=== PATIENT | female | born 1990 | race African-American/Black ===

== ENCOUNTER 2020-08-12 13:55 | Emergency (ER) | payer OTHER, SELFPAY ==
--- NOTE | ~2020-08-12 | US_ITS ---
EXAMINATION:US venous doppler LE BI INDICATION:Leg swelling TECHNIQUE: Multiple grayscale, color flow and Doppler images of the right and left lower extremity de ep venous systems were obtained and reviewed. COMPARISON:No prior studies for comparison. FINDINGS: The common femoral, superficial femoral and popliteal veins demonstrate normal respiratory variation, augmentation and compressibility. Color flow is also seen within the posterior tibial, pe roneal, greater saphenous and profunda veins. IMPRESSION: 1: No lower extremity deep venous thrombosis. Reviewed, dictated and finalized at location A.
--- NOTE | ~2020-08-12 | XR_ITS ---
EXAMINATION: XR chest 2V DATE: 08/12/2020 14:39 INDICATION: Fluid retention. TECHNIQUE: Frontal and lateral views of the chest were obtained. COMPARISON: Chest 2 views 04/30/2015 FINDINGS: The chest demonstrates clear lungs without pneumonia, pleural effusion, or pneumothorax. Th e heart size is normal. IMPRESSION: 1. No acute cardiopulmonary disease. Reviewed, dictated and finalized at location B.
[2020-08-12 14:11] VITALS: BP 139/92; PULSE 69; RESP 16; TEMP 36.2; O2SAT 99
[2020-08-12 14:27] LABS: Basophils Percent Auto 0.4 % (0.2-1.2); Eosinophils Absolute Auto 0.2 K/mm3 (0-0.3); Eosinophils Percent Auto 1.5 % (0-4.4); Hematocrit 27.6 % (37.0-47.0); Hemoglobin 8.5 g/dL (12.0-15.0); Immature Granulocyte Absolute 0.16 K/mm3 (0.00-0.031); Immature Granulocyte Percent A 1.5 % (0-0.5); Lymphocytes Absolute Auto 2.25 K/mm3 (0.9-3.2); Lymphocytes Percent Auto 20.5 % (18.3-44.2); Mean Corpuscular HGB Conc 30.8 g/dl (32-36); Mean Corpuscular Hemoglobin 25.2 pg (26-34); Mean Corpuscular Volume 81.9 fl (80-100); Monocytes Absolute Auto 1.2 K/mm3 (0.1-0.6); Monocytes Percent Auto 10.7 % (2.6-8.5); Neutrophils Absolute Auto 7.2 K/mm3 (1.3-6.7); Neutrophils Percent Auto 65.4 % (45.5-73.1); Nucleated Red Blood Cells Perc 0.2 % (0.0-0.2); Platelet Count Result 269 k/mm3 (150-375); Red Blood Count 3.37 M/mm3 (4.2-5.4); Red Cell Distribution Width 17.7 % (11.5-14.5)
[2020-08-12 14:36] LABS: Anion Gap 1 mmol/L (8-16); Blood Urea Nitrogen 9 mg/dL (7-17); Calcium 7.9 mg/dL (8.4-10.2); Carbon Dioxide 27 mmol/L (22-30); Chloride 109 mmol/L (98-107); Estimated CRCL calculation 139 ml/min; Estimated Glomerular Filt Rate > 60; Glucose 83 mg/dL (65-105); Potassium 3.9 mmol/L (3.4-5.0); Sodium 137 mmol/L (137-145)
[2020-08-12 14:38] LABS: INR 0.9; Prothrombin Time 13.2 Seconds (11.1-14.7)
[2020-08-12 14:39] LABS: Partial Thromboplastin Time 31.1 SECONDS (22.3-36.8)
[2020-08-12 14:48] LABS: NT Pro B Type Natriuretic Pept 283 PG/ML (5-100); Troponin I < 0.012 ng/mL (0.000-0.034)
[2020-08-12 15:57] VITALS: BP 134/90; PULSE 80; RESP 20; O2SAT 100
--- NOTE | 2020-08-12 16:07 | ED.GENADULT ---
HPI - General Adult General Chief complaint: Extremity Injury, Lower Stated complaint: leg swelling Time Seen by Provider: 08/12/20 15:36 Source: patient History of Present Illness HPI narrative: Patient is a 30 y/o female complaining of severe bilateral leg swelling for last 3 months. She states that her swelling is worse since she delivered twins 3 days ago. She has no chest pain or SOB. Related Data Allergies Allergy/AdvReac Type Severity Reaction Status Date / Time amoxicillin Allergy Unknown Hives / Verified 08/12/20 16:01 Red Face Review of Systems Constitutional: Constitutional: Denies chills, Denies fever(s), Denies headache(s) and Denies weakness Eyes: Eyes: Denies blurry vision ENT: Denies headache(s) and Denies neck pain Cardiovascular: Cardiovascular: Denies chest pain and Denies dyspnea Respiratory: Respiratory: Denies cough and Denies dyspnea Gastrointestinal: Gastrointestinal: Denies abdominal pain, Denies diarrhea, Denies nausea and Denies vomiting Genitourinary: Genitourinary: Denies hematuria and Denies dysuria Musculoskeletal: Musculoskeletal: Denies back pain, Denies neck pain and Reports other (leg swelling) Neurologic: Denies headache(s) and Denies weakness [facility] Social History Social History Gender identity (if verbalized by the patient): Female Exam Const: General: no acute distress and well developed Orientation/consciousness: oriented to person, oriented to place, oriented to time and patient oriented x3 HENMT: Head: normocephalic Ears: external ears normal General nose exam: Normal external nose present Eyes: General: appearance normal, both eyes and all related structures Conjunctivae: conjunctivae normal Neck: Neck: normal visual inspection and full ROM Chest: Chest palpation & inspection: normal inspection of the chest and no tenderness Resp: Effort & Inspection: normal respiratory effort Auscultation: clear to auscultation bilaterally Cardio: Rate: regular rate Rhythm: regular rhythm GI: GI Palp: No abdominal tenderness and Yes Soft to palpation Skin: General skin exam: normal color and turgor normal Neuro: General: oriented to person, oriented to place, oriented to time and patient oriented x3 Cognition (Neuro): normal cognition Extrem: General: normal to inspection, full ROM and edema Psych: Appearance: grossly normal Mental Status: mental status grossly normal Affect: normal affect Course Consultations Consultation #1: Discussed with Dr. Sotomayor ([employer]ly [employer] Generalist) at [place] [facility], who states that patient can be discharged and follow up with their clinic. Date: 08/12/20 Time: 19:27 Vital Signs Vital signs: Vital Signs Temperature 36.2 C L 08/12/20 14:11 Pulse Rate 69 08/12/20 14:11 Respiratory Rate 16 08/12/20 14:11 Blood Pressure 139/92 H 08/12/20 14:11 Pulse Oximetry 99 08/12/20 14:11 Temperature 36.2 C L 08/12/20 14:11 Pulse Rate 70 08/12/20 18:17 Respiratory Rate 15 08/12/20 18:17 Blood Pressure 136/89 08/12/20 18:17 Pulse Oximetry 100 08/12/20 18:17 Medical Decision Making Vital Signs Vital Signs: Vital Signs Temperature 36.2 C L 08/12/20 14:11 Pulse Rate 69 08/12/20 14:11 Respiratory Rate 16 08/12/20 14:11 Blood Pressure 139/92 H 08/12/20 14:11 Pulse Oximetry 99 08/12/20 14:11 Temperature 36.2 C L 08/12/20 14:11 Pulse Rate 70 08/12/20 18:17 Respiratory Rate 15 08/12/20 18:17 Blood Pressure 136/89 08/12/20 18:17 Pulse Oximetry 100 08/12/20 18:17 Lab Data Result diagrams: 08/12/20 14:17 08/12/20 14:17 Labs: Lab Results 08/12/20 08/12/20 08/12/20 Range/Units 14:17 14:17 14:17 WBC 11.0 H (4.5-10.0) K/mm3 RBC 3.37 L (4.2-5.4) M/mm3 Hgb 8.5 L (12.0-15.0) g/dL Hct 27.6 L (37.0-47.0) % MCV 81.9 (80-100) fl MCH 25.2 L (26-34) pg MCHC 30.8 L (32-36) g/dl RD
--- NOTE | 2020-08-12 16:10 | PC.NURSE ---
Called lab to add on Uric acid, D-dimer, and Hepatic panel.
[2020-08-12 16:29] LABS: Alanine Aminotransferase 33 U/L (4-35); Alkaline Phosphatase 164 U/L (38-126); Aspartate Amino Transferase 52 U/L (14-36); Bilirubin,Total 0.2 mg/dL (0.2-1.3); Uric Acid 4.8 mg/dL (2.5-7.5)
--- NOTE | 2020-08-12 16:38 | PC.NURSE ---
Cancel EKG, VORBV per Dr. Tripp
[2020-08-12 16:56] VITALS: BP 129/83; PULSE 84; RESP 19; O2SAT 100
[2020-08-12 18:08] LABS: Add Urine Microscopic? YES; Appearance Urine Cloudy (Clear); Bacteria Urine Trace /hpf; Bilirubin Urine Negative (Negative); Blood Urine 3+ (Negative); Color Urine Yellow (Yellow); Glucose Urine UA Negative (Negative); Ketones Urine Negative (Negative); Leukocyte Esterase Ur 3+ LEU/UL (Negative); Mucus Urine Rare /lpf; Nitrate Urine Negative (Negative); Protein Urine 1+ mg/dL (Negative); RBC Urine 0-2 /hpf (0-2); Specific Grav Ur 1.015 (1.001-1.035); Squamous Epithelial Cell Urine Few /hpf (Few); Transitional Epi Cells Urine Rare /hpf (None Seen); WBC Urine 31-50 /hpf
[2020-08-12 18:17] VITALS: BP 136/89; PULSE 70; RESP 15; O2SAT 100
== END 2020-08-12 19:56 | disposition home or self-care (01) ==
PROVIDERS: Emergency Medicine; Emergency Provider Emergency Medicine; PCP Obstetrics & Gynecology
DX: O99.893 Other specified diseases and conditions complicating puerperium (principal); M79.89 Other specified soft tissue disorders
CPT/HCPCS: 36415; 71046; 80048; 80076; 81001; 83880; 84484; 84550; 85025; 85380; 85610; 85730; 87077; 87086; 87088; 87186; 93970; 99284

== ENCOUNTER 2024-07-04 19:06 | Emergency (ER) | payer OTHER, SELFPAY ==
--- NOTE | ~2024-07-04 | XR_ITS ---
EXAMINATION: XR chest 2V Exam Date/Time: 07/04/2024 19:36 CDT HISTORY: palpitations, left sided chest pain Comparison: 08/12/2020. RESULT: Lines, tubes, and devices: None. Lungs and pleura: Clear. Cardiomediastinal silhouette: Stable. Other: No acute osseous or upper abdominal finding. IMPRESSION: No acute cardiopulmonary process. Reviewed, dictated and finalized at location K.
--- OUTSIDE RECORDS SUMMARY | 2024-07-04 19:09 | XMS_ITS | Clinical Summary ---
Author Organization [facility] [employer] Address [address] [place] [address] Care Team Providers Care Drilling Engineering Manager Name Role Phone El Daugherty MD Primary Care Provider [phone] Source Comments [facility],non-owned Affiliates and Associated Physician Practices is amultiple site organization consisting of ambulatory clinics and hospital sitesin [place], [place], [place] and [place]. This disclosure is being madepursuant to the Care Everywhere program and may not contain all information available regarding this patient. Last updated 18.[facility] [employer] Allergies Active Allergy Reactions Criticality Noted Date Comments Amoxicillin Rash High 06/30/2018 Omeprazole Other 04/11/2020 Racing pulse 03/2020 Medications * Be aware that medications may not be up to date on this document. Alwaysverify current medications with the patient. Medication Sig Dispensed Refills Start Date End Date Status pantoprazole EC (PROTONIX) 40 MG tabletIndications:Pe ptic ulcer disease Take 1 tablet by mouth 2 times daily 180 tablet 3 0 Active Acetaminophen (TYLENOL) 325 MG CAPS Take 1 tablet by mouth as needed Active -FE Bis-FA-DHA w/o A (COMPLETE /DHA) 30-0.975 & 300 MG MISC Take 1 tablet by mouth once daily 30 Each 11 1 Active docusate sodium (COLACE) 100 MG capsule Take 1 (one) capsule by mouth 2 times daily 60 capsule 2 1 Active iron polysaccharides (NIFEREX 150) 150 MG capsule Take 1 (one) capsule by mouth once daily 100 capsule 1 Active NIFEdipine CR osmotic 24hr (ADALAT CC) 30 MG tablet Take 1 (one) tablet by mouth once daily 30 tablet 1 1 Active ketoconazole (NIZORAL) 2 % shampooIndications:O ther psoriasis Work into lather on scalp, leave on 3-5 minutes before rinse. Use qd at first, can lower frequency after improved 120 mL 11 1 Active calcipotriene (DOVONEX) 0.005 % cream Apply to rashes bid. No restrictions on location. 30 DS 120 g 11 1 Active clobetasol (Temovate) 0.05 % ointmentIndications: Rash and other nonspecific skin eruption Apply to affected areas (on trunk, arms, legs) twice daily. 30 days supply. 60 g 5 4 Active clobetasol (Temovate) 0.05 % solutionIndications: Rash and other nonspecific skin eruption Apply to affected area on scalp BID. 30 day supply. 50 mL 4 Active hydrOXYzine HCl (Atarax) 25 MG tabletIndications:Ra sh and other nonspecific skin eruption Take 1 (one) tablet by mouth 2 times daily as needed for Itching 90 tablet 3 4 Active risankizumab-rzaa (Skyrizi Pen) 150 MG/ML injectionIndications :Other psoriasis Inject 1 mL subcutaneously on day 0. Inject 1 mL subcutaneously on day 28. 2 mL 5 Active risankizumab-rzaa (Skyrizi Pen) 150 MG/ML injectionIndications :Other psoriasis Inject 1mL subcutaneously every 12 weeks. 12 week supply. 1 mL 2 5 Active Active Problems Problem Noted Date Diagnosed Date Elevated blood pressure read ing without diagnosis of hypertension 08/16/2020 Gestational diabetes mellitus (GDM) in third tri mester 07/01/2020 Overview (07/22/2020): GCT 174, 2/4 abnormal on GTT at 32 weeks Assessment & Plan (08/01/2020 1:34 PM CDT): Did not bring logs P 1. Send logs weekly for review 2. NST 2x weekly 3. IOL date set , supervision, high-risk 05/11/2020 Overview (08/01/2020): Dated by 11w US - transfer of care to [facility] @25 week preg 27 pages scanned records in media labs Jan 2020:O+/I/-/-, HIV neg, antibody neg, varicella immune, urine culture neg, drug screen neg, hgb solubility screen neg, hgb 11.7/platelets 340, GC/Ct neg HSV 1/2 swab neg, HSV-2 serology neg, TSH low, A1c 5.2, Hep panel neg No pap on file Plan pap/hpv testing flu vaccine: yes, Per pt GBS neg Twin , twins dichorionic and diamniotic 02/20/2020 Overview (08/01/2020): QUAD Screen negative for open NTD and Down syndrome Assessment & Plan (08/01/2020 1:38 PM CDT): Labor precautions Low thyroid stimulating hormone (TSH) level 01/25 Overview (07/22/2020): Resolved as progressed Other psoriasis 09/02/2018 Other seborrheic dermatitis 09/02/2018 Peptic ulcer disease 06/30/2018 Overview (07/22/2020): Has been followed by GI for peptic ulcer disease - persistent despite high doses pantoprazole, H pylori, treated; was having endoscopies every 3 months (last 03/2019) until - to follow up . Last seen 01/25/2020. Hx both gastric and duodenal ulcers. Pantoprazole 40 mg BID. Adult hypertrophic pyloric stenosis 05/26/2018 Duodenal ulcer disease 05/26/2018 Gastric ulcer without hemorrhage or perforation 05/26/2018 Resolved Problems Problem Noted Date Diagnosed Date Resolved Date BMI 30.0-30.9,adult 02/20/2020 05/11/19 21 High risk medications (not a nticoagulants) long-term use 06/04/2019 05/11/2020 Helicobacter pylori infection 06/30/2018 05/11/2020 Trichomoniasis 06/30/2018 07/22/2020 Left upper quadrant pain 02/24/2018 Acute dermatitis 02/24/2018 05/11/2020 Anemia 02/24/2018 07/22/2020 Bacterial vaginosis 02/24/2018 05/11/19 21 Candidiasis 02/24/2018 05/11/2020 Chronic cervicitis 02/24/2018 Epigastric pain 02/24/2018 05/11/2020 Intestinal infection by trichomonas vaginalis 02/25/20 18 05/11/2020 Irritable bowel syndrome 02/24/201810/2018 Nausea and vomiting 02/24/2018 07/01/19 19 Encounters Date Type Department Care Team Description 06/09/2024 Orders Only [facility] - Dermatology [address] [place] [phone] Anna Adrian MD Other psoriasis 06/05/2024 4:10 PM IRON PILER - 06/05/2024 11:59 PM IRON PILER Hospital Encounter [facility] [address] [place] [phone] Discharge Disposition: Home or Self Care 06/05/2024 3:40 PM IRON PILER Office Visit [facility] - Dermatology [address] [place] [phone] Anna Adrian MD Psoriasis (Primary Dx); Encounter for long-term (current) use of high-risk medication 06/05/2024 Travel 04/13/2024 Telephone [facility] - Dermatology [address] [place] [phone] Monty Bustillos MD Follow-up 04/10/2024 3:00 PM IRON PILER Office Visit [facility] - Dermatology [address] [place] [phone] Anna Adrian MD Rash and other nonspecific skin eruption (Primary Dx) 04/10/2024 Travel from Last 3 Months Immunizations Name Administration Dates Next Due Covid Pfizer primary monoval ent 12+ yr 0.3mL Purple cap 10/22/2020 HEP A/HEP B 02/26/2015,10/24/2014,09/04/2014 Human Papilloma Virus Nineva lent Vaccine 05/29/2015 Human Papilloma Virus Sari valent Vaccine 10/24/2014,09/04/2014 INFLUENZA VACCINE 02/24/2018 INFLUENZA VACCINE, QUADR. (F LUZONE; FLULAVAL; FLUARIX; AFLURIA QUADRIVALENT; 6MO+), 0.5 ML (IIV4) 01/25/2020 MMR 08/17/2020(Deferred: See Comments - patient is rubella immune),08/10/2020(Deferred: See Comments - pt is rubella immune) TDAP (7yrs+) 08/17/2020(Deferred: See Comments - pt received in OB office while ),08/10/2020(Deferred: See Comments - pt already had tdap this ) Family History Medical History Relation Name Comments Psoriasis Brother Cancer Maternal Grandmother CAD (Coronary Artery Disease) Mother open heart surgery Asthma Neg Hx CVA Neg Hx Cancer - Breast Neg Hx Cancer - Other Neg Hx Cancer - Skin, Melanoma Neg Hx Cancer - Skin, Non Melanoma Neg Hx Eczema Neg Hx Hemophilia Neg Hx Relation Name Status Comments Brother Maternal Grandmother Mother Social History Tobacco Use Types Packs/Day Years Used Date Smoking Tobacco: Never Smokeless Tobacco: Never Alcohol Use Standard Drinks/Week Comments Yes 0 (1 standard drink = 0.6 oz pure alcohol) occasional, not during Sex and Gender Information Value Date Recorded Sex Assigned at Not on file Gender Identity Not on file Sexual Orientation Not on file Last Filed Vital Signs Vital Sign Reading Time Taken Comments Blood Pressure 134/76 08/17/2020 6:53 PM CDT Pulse 82 08/11/2020 12:55 PM CDT Temperature 36.8 C (98.3 F) 08/17/2020 12:47 PM CDT Respiratory Rate 18 08/17/2020 12:47 PM CDT Oxygen Saturation 98% 08/17/2020 12:47 PM CDT Inhaled Oxygen Concentration - - Weight 92.1 kg (203 lb) 08/16/2020 2:58 PM CDT Height 170.2 cm (5' 7 ) 08/16/2020 2:58 PM CDT Body Mass Index 31.79 08/16/2020 2:58 PM CDT Plan of Treatment Upcoming Encounters Date Type Department Care Team (Late st Contact Info) Description 07/24/2024 3:00 PM CDT Office Visit [facility] - Family Medicine [address] [facility], [facility] [address] [place] [phone] Luisa Montero MD [address] [place] [address] 09/04/2024 3:40 PM CDT Office Visit [facility] - Dermatology [facility] [facility] [facility], [place] [phone] Anna Adrian MD [facility] [facility] [facility] [place] [phone] Health Maintenance Due Date Last Done Comments PAP SMEAR 1990 HIV SCREENING 2005 DTAP/TDAP/TD VACCINES (1 - Tdap) 2009 COVID-19 VACCINE (3 2023-2 5 season) 2023 12/25/2020, 10/22/2020 INFLUENZA VACCINE (#1) 2023 , 03/10/2018, 02/24/2018 DEPRESSION SCREENING 04/26/2024 ZOSTER VACCINE (1 of 2) 2040 HEPATITIS B VACCINE Completed 02/26/2015, 10/24/2014, 09/04/2014 HPV VACCINE Completed 05/29/2015, 10/24/2014, 09/04/2014 HEPATITIS C SCREENING Completed 06/05/2024 HIB VACCINE Aged Out No longer eligi ble based on patient's age to complete this topic MENINGOCOCCAL (Group B) VACCINE Aged Out No longer eligible b ased on patient's age to complete this topic MENINGOCOCCAL VACCINE Aged Out No david jon eligible based on patient's age to complete this topic PNEUMOCOCCAL VACCINE Aged Out No long er eligible based on patient's age to complete this topic Goals Goal Patient Goal Type Associated Problems Recent Progress Patient-Stated? Author Medication Management General On track( 020 11:52 AM CDT) No Lis Adrian, RN Note: Expected end date: onoing Interventions: Take all medications as prescribed Let your doctor know right away about any changes in your medications Make sure to request a refill of your medication at least one week prior to your last dose Procedures Procedure Name Priority Date/Time Associated Diagnosis Comments DIFFERENTIAL MANUAL Routine 06/05/2024 4 :57 PM IRON PILER Encounter for long-term (current) use of high-risk medication COMPREHENSIVE METABOLIC PANEL Routine 06/05/2024 4:57 PM IRON PILER Encounter for long-term (current) use of high-risk medication CBC W AUTO DIFFERENTIAL Routine 06/05/19 4:57 PM IRON PILER Encounter for long-term (current) use of high-risk medication HEPATITIS C AB SCREEN RFLX NAAT QUANT Routine 06/05/2024 4:57 PM IRON PILER Encounter for long-term (current) use of high-risk medication QUANTIFERON-TB GOLD PLUS 4-TUBE Routine 06/05/2024 4:57 PM IRON PILER Encounter for long-term (current) use of high-risk medication HEPATITIS B SURFACE ANTIGEN W RFLX CONFIRMATION Routine 06/05/2024 4:57 PM IRON PILER Encounter for long-term (current) use of high-risk medication HEPATITIS B CORE ANTIBODY TOTAL Routine 06/05/2024 4:57 PM IRON PILER Encounter for long-term (current) use of high-risk medication NC PUNCH BX SKIN SINGLE LESION Routine 04/10/2024 4:06 PM IRON PILER Rash and other nonspecific skin eruption DERMATOPATHOLOGY Routine 04/10/2024 12:0 0 AM IRON PILER Rash and other nonspecific skin eruption from Last 3 Months Results * HEPATITIS C AB SCREEN RFLX NAAT QUANT (06/05/2024 4:57 PM IRON PILER) Hepatitis C Antibody Non-react isidoro Non-reac tive 06/05/2024 6:06 PM IRON PILER [facility] Comment:Hepatitis C Antibody screen indicates no serologic evidence of past or current infection with Hepatitis C Virus. Patients with unexplained liver disease who are immunocompromised or suspected of having acute Hepatitis C infection may benefit from Nucleic Acid Test (KRISTA) for Hepatitis C Viral RNA to confirm Hepatitis C status. Blood BLOOD SPECIMEN / Unknown Lab Venipuncture / Unknown 06/05/2024 4:57 PM IRON PILER 06/05/2024 5:04 PM IRON PILER Anna Adrian MD LAB - CHEMISTRY STEPHANIE SHARMA [facility] Organization Address City/State/ZIP Co de Phone Number [address] [phone] [phone] * QUANTIFERON-TB GOLD PLUS 4-TUBE (06/05/2024 4:57 PM IRON PILER) [facility] QuantiFERON Mitogen Minus NIL 9.56 IU/mL 06/08/2024 3:33 AM IRON PILER [facility] ([facility]) QuantiFERON Nil Value 0.45 IU/mL 06/08/2024 3:33 AM IRON PILER [facility] QuantiFERON Plus TB1 Minus NIL 0.00 <=0.34 IU/mL 06/08/2024 3:33 AM IRON PILER [facility] QuantiFERON Plus TB2 Minus NIL 0.00 <=0.34 IU/mL 06/08/2024 3:33 AM IRON PILER [facility]) QuantiFERON-TB Gold Plus Negative Negative 06/08/2024 3:33 AM IRON PILER [facility] [employer] ([facility]) Comment: INTERPRETIVE INFORMATION:Quantiferon TB Gold Plus Interferon gamma release is measured for specimens from each of the four collection tubes. A qualitative result (Negative, Positive, or Indeterminate) is based on interpretation of the four values: NIL, MITOGEN minus NIL (MITOGEN-NIL), TB1 minus NIL (TB1-NIL), and TB2 minus NIL (TB2-NIL). The NIL value represents nonspecific reactivity produced by the patient specimen. The MITOGEN-NIL value serves as the positive control for the patient specimen, demonstrating successful lymphocyte activity. The TB1-NIL tube specifically detects CD4+ lymphocyte reactivity, specifically stimulated by the TB1 antigens. The TB2-NIL tube detects both CD4+ and CD8+ lymphocyte reactivity, stimulated by TB2 antigens. An overall Negative result does not completely rule out TB infection. A false-positive result in the absence of other clinical evidence of TB infection is not uncommon. Refer to: Updated Guidelines for Using Interferon Gamma Release Assays to Detect Mycobacterium tuberculosis Infection -- [place], 2010 (http://www.cdc.gov/mmwr/preview/mmwrhtml/bf5043i8.htm), for more information concerning test performance in low-prevalence populations and use in occupational screening. Performed By: [facility] [address] [place] [address] Procurement Analyst: Milton Iraheta MD, PhD CLIA Number: [id number] Blood BLOOD SPECIMEN / Unknown Lab Venipuncture / Unknown 06/05/2024 4:57 PM IRON PILER 06/05/2024 5:12 PM IRON PILER Anna Adrian MD LAB - CHEMISTRY STEPHANIE SHARMA [facility] Organization Address City/State/ZIP Co de Phone Number [facility] ([facility]) [address] [place] [address], [facility] * (ABNORMAL) DIFFERENTIAL MANUAL (06/05/2024 4:57 PM IRON PILER) Neutrophil % 42 41 - 74 % 06/05/2024 6:03 PM [facility] Lymphocyte % 48(H) 17 - 47 % 06/05/2024 6:03 PM [facility] Monocyte % 8 3 - 11 % 06/05/2024 6:03 PM [facility] Eosinophil % 2 0 - 7 % 06/05/2024 6:03 PM [facility] Neutrophil Absolute 4.28 1.60 - 7.50 x10E9/L 06/05/2024 6:03 PM [facility] Lymphocyte Absolute 4.90(H) 1.00 - 4.40 x10E9/L 06/05/2024 6:03 PM [facility] Monocyte Absolute 0.82 0.15 - 1.00 x10E9/L 06/05/2024 6:03 PM [facility] Eosinophil Absolute 0.20 0.00 - 0.60 x10E9/L 06/05/2024 6:03 PM [facility] RBC Morphology REVIEWED 06/05/2024 6:03 PM [facility] Schistocytes FEW(A) (none) 06/05/2024 6:03 PM [facility] Blood BLOOD SPECIMEN / Unknown Lab Venipuncture / Unknown 06/05/2024 4:57 PM IRON PILER 06/05/2024 5:17 PM IRON PILER Anna Adrian MD LAB - HEMATOLOGY ORD ERABLES [facility] [address] [place] [address], [facility] [phone] * CBC WITH DIFFERENTIAL (06/05/2024 4:57 PM [facility] [email or web address] WBC 10.2 4.0 - 10.7 x10E9/L 06/05/2024 6:03 PM [facility] RBC Count 4.28 3.90 - 5.20 x10E12/L 06/05/2024 6:03 PM [facility] Hemoglobin 11.9 11.9 - 15.8 g/dL 06/05/2024 6:03 PM [facility] Hematocrit 37.2 34.8 - 46.1 % 06/05/2024 6:03 PM [facility] MCV 86.9 80.0 - 98.0 fL 06/05/2024 6:03 PM [facility] MCH 27.8 26.7 - 33.6 pg 06/05/2024 6:03 PM [facility] MCHC 32.0 31.7 - 36.3 g/dL 06/05/2024 6:03 PM [facility] RDW-CV 12.9 11.3 - 14.8 % 06/05/2024 6:03 PM [facility] Platelet Count 348 150 - 420 x10E9/L 06/05/2024 6:03 PM [facility] MPV 10.5 7.8 - 11.4 fL 06/05/2024 6:03 PM [facility] Blood BLOOD SPECIMEN / Unknown Lab Venipuncture / Unknown 06/05/2024 4:57 PM IRON PILER 06/05/2024 5:17 PM IRON PILER Anna Adrian MD LAB - HEMATOLOGY ORD ERABLES [facility] [address] [place] [address], [facility] [phone] * (ABNORMAL) COMPREHENSIVE METABOLIC PANEL (06/05/2024 4:57 PM IRON PILER) BUN 10 7 - 26 mg/dL 06/05/2024 5:51 PM [facility] Creatinine 0.66 0.56 - 0.96 mg/dL 06/05/2024 5:51 PM [facility] Sodium 139 136 - 145 mmol/L 06/05/2024 5:51 PM [facility] Potassium 3.7 3.5 - 4.5 mmol/L 06/05/2024 5:51 PM [facility] Chloride 108(H) 98 - 107 mmol/L 06/05/2024 5:51 PM [facility] CO2 23 22 - 29 mmol/L 06/05/2024 5:51 PM [facility] Glucose 83 70 - 99 mg/dL 06/05/2024 5:51 PM [facility] Calcium 8.9 8.4 - 10.2 mg/dL 06/05/2024 5:51 PM [facility] Protein Total 7.1 6.0 - 8.3 g/dL 06/05/2024 5:51 PM [facility] Albumin 3.8 3.4 - 5.0 g/dL 06/05/2024 5:51 PM [facility] Bilirubin Total 0.3 0.2 - 1.2 mg/dL 06/05/2024 5:51 PM [facility] Alkaline Phosphatase 99 40 - 150 U/L 06/05/2024 5:51 PM [facility] ALT 15 5 - 55 U/L 06/05/2024 5:51 PM [facility] AST 13 5 - 34 U/L 06/05/2024 5:51 PM [facility] Anion Gap 8 6 - 16 06/05/2024 5:51 PM [facility] BUN/Creatinine Ratio 15 7 - 23 06/05/2024 5:51 PM [facility] Osmolality Calculated 286 275 - 295 mOsm/kg 06/05/2024 5:51 PM [facility] Albumin/Globulin Ratio 1.2 1.1 - 2.3 06/05/2024 5:51 PM [facility] eGFR by CKD-EPI >90 >=90 mL/min/1.7 3 m2 06/05/2024 5:51 PM [facility] Blood BLOOD SPECIMEN / Unknown Lab Venipuncture / Unknown 06/05/2024 4:57 PM IRON PILER 06/05/2024 5:17 PM IRON PILER Anna Adrian MD LAB - CHEMISTRY STEPHANIE SHARMA [address] [address], [facility] [phone] * HEPATITIS B CORE ANTIBODY TOTAL (06/05/2024 4:57 PM IRON PILER) HBc Antibody Total Non-reacti ve Non-reacti ve 06/05/2024 6:06 PM IRON PILER [facility] Blood BLOOD SPECIMEN / Unknown Lab Venipuncture / Unknown 06/05/2024 4:57 PM IRON PILER 06/05/2024 5:04 PM IRON PILER Anna Adrian MD LAB - CHEMISTRY STEPHANIE SHARMA [address] [address], [place] [phone] * HEPATITIS B SURFACE ANTIGEN W RFLX CONFIRMATION (06/05/2024 4:57 PM IRON PILER) Hepatitis B Virus Surface Antigen Non-reacti ve Non-reacti ve 06/05/2024 6:06 PM IRON PILER [facility] Blood BLOOD SPECIMEN / Unknown Lab Venipuncture / Unknown 06/05/2024 4:57 PM IRON PILER 06/05/2024 5:04 PM IRON PILER Anna Adrian MD LAB - CHEMISTRY STEPHANIE SHARMA [facility] Organization Address City/State/ZIP Co de Phone Number [facility] [address] [place] [address], [facility] [phone] * NC PUNCH BX SKIN SINGLE LESION (04/10/2024 4:06 PM IRON PILER) Narrative Anna Adrian MD - 04/10/2024 4:06 PM IRON PILER Monty Bustillos MD 04/10/2024 4:06 PM Risks, benefits and alternatives to punch biopsy were discussed with the patient, including risks of infection, scar (100% chance), the possibility of non-diagnostic reading, and the potential need for further testing or treatment, including surgical. Patient expressed understanding and verbal consent was obtained. Location: [facility] flank Punch biopsy: 4mm Skin prep: Alcohol Anesthesia: 1% lidocaine with epinephrine Closure: 4-0 nylon suture Dressing and wound care discussed. Patient agrees to phone call for results and message if not available. Monty Bustillos MD [facility] Dermatology Resident Anna Adrian MD PROCEDURE/MINOR SURG ICAL ORDERABLES * DERMATOPATHOLOGY (04/10/2024 12:00 AM IRON PILER) Case Report Dermatopathology Report Case: [id number] Authorizing Provider: Anna Adrian MD Collected: 04/10/2024 12:00 AM Ordering Location: [facility] - Received: 04/10/2024 05:00 PM Dermatology Pathologist: Catherine Morris MD Specimen: Skin, right flank 4:31 PM [facility] [email or web address]] DERMATOPATHOLOGY LABORATORY Final Diagnosis Specimen A. 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 The specimen consists of a punch biopsy measuring 4x4x6 mm. Jar 0. 4 4:31 PM [facility] [[email or web address]] DERMATOPATHOLOGY LABORATORY Microscopic Description Specimen A. SKIN, right flank: Sections show mounded parakeratosis with neutrophils. There is mild spongiosis of the epidermis. In the dermis there is a mainly superficial perivascular lymphoid infiltrate. Grocott's methenamine silver (GMS) stain fails to highlight fungal elements in the available sections. IL-36 immunohistochemical stain demonstrates strong staining of the upper epidermis. 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 4 4:31 PM [facility] [email or web address]] DERMATOPATHOLOGY LABORATORY Disclaimer An external and internal positive and negative controls are appropriate for the histochemical, immunohistochemical and immunofluorescence stain(s) in this case (if any), except where stated explicitly. The performance characteristics of the stain(s) cited in this report were developed and its performance characteristic determined by the Dermatopathology Laboratory at [facility], directed by Dr. Michoacano Ayala. These tests need not be, and therefore are not, approved by the [place] Food and Drug Administration. The tests are used for clinical purposes. Billing Codes Specimen Charges Stain Charges 06456 1 [id number] 1 1 4 4:31 PM [facility] [[email or web address]] DERMATOPATHOLOGY LABORATORY Embedded Images 4 4:31 PM [facility] [email or web address]] DERMATOPATHOLOGY LABORATORY Pathology/Cytolog y TISSUE SPECIMEN FROM SKIN / Unknown 04/10/2024 04/10/2024 5:00 PM IRON PILER Anna Adrian MD LAB - PATHOLOGY/CYTO LOGY ORDERABLES DERMATOPATHOLOGY LABORATORY [facility] - Department of Dermatology [facility] Medicine [address] [place] [address], [address] [phone] from Last 3 Months Advance Directives * Full Code (Latest Code Status on File) Date Activated Date Inactivated Comments 08/16/2020 3:05 PM 08/17/2020 9:05 PM * Full Code Date Activated Date Inactivated Comments 08/08/2020 9:24 AM 08/11/2020 2:14 PM * Full Code Date Activated Date Inactivated Comments 06/26/2020 6:22 PM 06/27/2020 12:57 AM Care Teams Drilling Engineering Manager Relationship Specialty Start Date End Date El Daugherty MD [address] [place] [address] [phone] PCP - General 02/16/19
--- OUTSIDE RECORDS SUMMARY | 2024-07-04 19:09 | XMS_ITS | Patient Health Summary ---
Author Organization [facility] Address [address] [place] [address] Care Team Providers Care Financial Reporting Analyst Name Role Phone El Daugherty MD Primary Care Provider [phone] Note from [facility],non-owned Affiliates and Associated Physician Practices is amultiple site organization consisting of ambulatory clinics and hospital sitesin [place], [place], [place] and [place]. This disclosure is being madepursuant to the Care Everywhere program and may not contain all information available regarding this patient. Last updated 18.[facility] Allergies * Amoxicillin(Rash) -High Criticality * Omeprazole(Other) Medications * Be aware that medications may not be up to date on this document. Alwaysverify current medications with the patient. * pantoprazole EC (PROTONIX) 40 MG tablet(Started 08/16/2019) Take 1 tablet by mouth 2 times daily 3 refills by 08/15/2020 * Acetaminophen (TYLENOL) 325 MG CAPS Take 1 tablet by mouth as needed * -FE Bis-FA-DHA w/o A (COMPLETE /DHA) 30-0.975 & 300 MG MISC (Started 05/11/2020) Take 1 tablet by mouth once daily 11 refills by 05/11/2021 * docusate sodium (COLACE) 100 MG capsule(Started 06/23/2020) Take 1 (one) capsule by mouth 2 times daily 2 refills by 06/23/2021 * iron polysaccharides (NIFEREX 150) 150 MG capsule(Started 08/11/2020) Take 1 (one) capsule by mouth once daily * NIFEdipine CR osmotic 24hr (ADALAT CC) 30 MG tablet(Started 08/18/2020) Take 1 (one) tablet by mouth once daily 1 refill by 08/17/2021 * ketoconazole (NIZORAL) 2 % shampoo(Started 12/19/2020) Work into lather on scalp, leave on 3-5 minutes before rinse. Use qd at first, can lower frequency after improved 11 refills by 12/19/2021 * calcipotriene (DOVONEX) 0.005 % cream(Started 12/19/2020) Apply to rashes bid. No restrictions on location. 30 DS 11 refills by 12/19/2021 * clobetasol (Temovate) 0.05 % ointment(Started 04/10/2024) Apply to affected areas (on trunk, arms, legs) twice daily. 30 days supply. 5 refills by 04/10/2025 * clobetasol (Temovate) 0.05 % solution(Started 04/10/2024) Apply to affected area on scalp BID. 30 day supply. * hydrOXYzine HCl (Atarax) 25 MG tablet(Started 04/13/2024) Take 1 (one) tablet by mouth 2 times daily as needed for Itching 3 refills by 04/13/2025 * risankizumab-rzaa (Skyrizi Pen) 150 MG/ML injection(Started 06/09/2024) Inject 1 mL subcutaneously on day 0. Inject 1 mL subcutaneously on day 28. * risankizumab-rzaa (Skyrizi Pen) 150 MG/ML injection(Started 06/09/2024) Inject 1mL subcutaneously every 12 weeks. 12 week supply. 2 refills by 06/09/2025 Active Problems Problem Noted Date Diagnosed Date Elevated blood pressure read ing without diagnosis of hypertension 08/16/2020 Gestational diabetes mellitus (GDM) in third tri mester 07/01/2020 , supervision, high-risk 05/11/2020 Twin , twins dichorionic and diamniotic 02/20/2020 Low thyroid stimulating hormone (TSH) level 01/25 Other psoriasis 09/02/2018 Other seborrheic dermatitis 09/02/2018 Peptic ulcer disease 06/30/2018 Adult hypertrophic pyloric stenosis 05/26/2018 Duodenal ulcer [...] 02/24/201810/2018 Nausea and vomiting 02/24/2018 07/01/19 19 Immunizations * Covid Pfizer primary monovalent 12+ yr 0.3mL Purple cap(Given 10/22/2020) * HEP A/HEP B(Given 02/26/2015, 10/24/2014, 09/04/2014) * Human Papilloma Virus Ninevalent Vaccine(Given 05/29/2015) * Human Papilloma Virus Quadrivalent Vaccine(Given 10/24/2014, 09/04/2014) * INFLUENZA VACCINE(Given 02/24/2018) * INFLUENZA VACCINE, QUADR. (FLUZONE; FLULAVAL; FLUARIX; AFLURIA QUADRIVALENT; 6MO+), 0.5 ML (IIV4)(Given 01/25/2020) Social History Tobacco Use Types Packs/Day Years [...] Mass Index 31.79 08/16/2020 2:58 PM CDT Procedures * DIFFERENTIAL MANUAL(Performed 06/05/2024) Performed for Encounter for long-term (current) use of high-risk medication * COMPREHENSIVE METABOLIC PANEL(Performed 06/05/2024) Performed for Encounter for long-term (current) use of high-risk medication * CBC W AUTO DIFFERENTIAL(Performed 06/05/2024) Performed for Encounter for long-term (current) use of high-risk medication * HEPATITIS C AB SCREEN RFLX NAAT QUANT(Performed 06/05/2024) Performed for Encounter for long-term (current) use of high-risk medication * QUANTIFERON-TB GOLD PLUS 4-TUBE(Performed 06/05/2024) Performed for Encounter for long-term (current) use of high-risk medication * HEPATITIS B SURFACE ANTIGEN W RFLX CONFIRMATION(Performed 06/05/2024) Performed for Encounter for long-term (current) use of high-risk medication * HEPATITIS B CORE ANTIBODY TOTAL(Performed 06/05/2024) Performed for Encounter for long-term (current) use of high-risk medication * NE PUNCH BX SKIN SINGLE LESION(Performed 04/10/2024) Performed for Rash and other nonspecific skin eruption * DERMATOPATHOLOGY(Performed 04/10/2024) Performed for Rash and other nonspecific skin eruption * TYPE + SCREEN PANEL(Performed 08/16/2020) Performed for Hypertension, unspecified type * PROTEIN CREATININE RATIO URINE RANDOM PNL(Performed 08/16/2020) Performed for Hypertension, unspecified type * COMPREHENSIVE METABOLIC PANEL(Performed 08/16/2020) Performed for Elevated blood pressure reading without diagnosis of hypertension * CBC W/O DIFFERENTIAL(Performed 08/16/2020) Performed for Elevated blood pressure reading without diagnosis of hypertension * IMAGING/RADIOLOGY/XRAY RESULTS ORDER(Performed 08/13/2020) * CBC W/O DIFFERENTIAL(Performed 08/11/2020) * PREPARE RBC LEUKOREDUCED UNIT(Performed 08/10/2020) Performed for state ([facility]) * GLUCOSE - POINT OF CARE(Performed 08/10/2020) * CBC W AUTO DIFFERENTIAL(Performed 08/10/2020) * BLOOD GASES CORD ARTERIAL(Performed 08/09/2020) * BLOOD GASES CORD CHERYL(Performed 08/09/2020) * BLOOD GASES CORD ARTERIAL(Performed 08/09/2020) * BLOOD GASES CORD CHERYL(Performed 08/09/2020) * GLUCOSE - POINT OF CARE(Performed 08/09/2020) * GLUCOSE - POINT OF CARE(Performed 08/08/2020) * GLUCOSE - POINT OF CARE(Performed 08/08/2020) * GLUCOSE - POINT OF CARE(Performed 08/08/2020) * GLUCOSE - POINT OF CARE(Performed 08/08/2020) * GLUCOSE - POINT OF CARE(Performed 08/08/2020) * NEURAXIAL BLOCK(Performed 08/08/2020) * GLUCOSE - POINT OF CARE(Performed 08/08/2020) * GLUCOSE - POINT OF CARE(Performed 08/08/2020) * GLUCOSE - POINT OF CARE(Performed 08/08/2020) * GLUCOSE - POINT OF CARE(Performed 08/08/2020) * GLUCOSE - POINT OF CARE(Performed 08/08/2020) * GLUCOSE - POINT OF CARE(Performed 08/08/2020) * BLOOD TYPE VERIFICATION(Performed 08/08/2020) * CBC W AUTO DIFFERENTIAL(Performed 08/08/2020) Performed for Dichorionic diamniotic twin in third trimester ([facility]) * TYPE + SCREEN PANEL(Performed 08/08/2020) Performed for Dichorionic diamniotic twin in third trimester ([facility]) * SYPHILIS ANTIBODY CASCADING REFLEX(Performed 08/08/2020) Performed for Dichorionic diamniotic twin in third trimester ([facility]) * GLUCOSE - POINT OF CARE(Performed 08/08/2020) * NE BIOPHYSICAL PROFILE(Performed 08/01/2020) Performed for Dichorionic diamniotic twin in third trimester ([facility]), Diet controlled gestational diabetes mellitus (GDM) in third trimester ([facility]), Encounter for ultrasound to assess growth in twin , antepartum ([facility]) * NE BIOPHYSICAL PROFILE(Performed 08/01/2020) Performed for Dichorionic diamniotic twin in third trimester ([facility]), Diet controlled gestational diabetes mellitus (GDM) in third trimester ([facility]), Encounter for ultrasound to assess growth in twin , antepartum ([facility]) * NE SONO FU OR REPEAT(Performed 08/01/2020) Performed for Dichorionic diamniotic twin in third trimester ([facility]), Diet controlled gestational diabetes mellitus (GDM) in third trimester ([facility]), Encounter for ultrasound to assess growth in twin , antepartum ([facility]) * NE SONO FU OR REPEAT(Performed 08/01/2020) Performed for Dichorionic diamniotic twin in third trimester ([facility]), Diet controlled gestational diabetes mellitus (GDM) in third trimester ([facility]), Encounter for ultrasound to assess growth in twin , antepartum ([facility]) * IMAGING/RADIOLOGY/XRAY RESULTS ORDER(Performed 08/01/2020) * NE BIOPHYSICAL PROFILE(Performed 07/26/2020) Performed for Dichorionic diamniotic twin in third trimester ([facility]), Gestational diabetes mellitus (GDM) in third trimester, gestational diabetes method of control unspecified ([facility]) * NE BIOPHYSICAL PROFILE(Performed 07/26/2020) Performed for Dichorionic diamniotic twin in third trimester ([facility]), Gestational diabetes mellitus (GDM) in third trimester, gestational diabetes method of control unspecified ([facility]) * IMAGING/RADIOLOGY/XRAY RESULTS ORDER(Performed 07/26/2020) * URINALYSIS - POINT OF CARE (AMB) [facility](Performed 07/26/2020) Performed for Dichorionic diamniotic twin in second trimester ([facility]) * NE BIOPHYSICAL PROFILE(Performed 07/16/2020) Performed for Gestational diabetes mellitus (GDM) in third trimester, gestational diabetes method of control unspecified ([facility]), Maternal obesity, antepartum, third trimester ([facility]), Dichorionic diamniotic twin in third trimester ([facility]) * NE BIOPHYSICAL PROFILE(Performed 07/16/2020) Performed for Gestational diabetes mellitus (GDM) in third trimester, gestational diabetes method of control unspecified ([facility]), Maternal obesity, antepartum, third trimester ([facility]), Dichorionic diamniotic twin in third trimester ([facility]) * CULTURE STREP B+SUSCEPT(Performed 07/16/2020) Performed for screening for streptococcus B ([facility]) * IMAGING/RADIOLOGY/XRAY RESULTS ORDER(Performed 07/16/2020) * URINALYSIS - POINT OF CARE (AMB) [facility](Performed 07/16/2020) Performed for Dichorionic diamniotic twin in second trimester ([facility]) * IMAGING/RADIOLOGY/XRAY RESULTS ORDER(Performed 07/05/2020) * IMAGING/RADIOLOGY/XRAY RESULTS ORDER(Performed 07/05/2020) * NE SONO FU OR REPEAT(Performed 07/04/2020) Performed for Gestational diabetes mellitus (GDM) in third trimester, gestational diabetes method of control unspecified ([facility]), Dichorionic diamniotic twin in third trimester ([facility]) * NE BIOPHYSICAL PROFILE(Performed 07/04/2020) Performed for Gestational diabetes mellitus (GDM) in third trimester, gestational diabetes method of control unspecified ([facility]), Dichorionic diamniotic twin in third trimester ([facility]) * URINALYSIS - POINT OF CARE (AMB) [facility](Performed 07/04/2020) Performed for Dichorionic diamniotic twin in third trimester ([facility]) * GTT 3 HR (100G) GESTATIONAL DIAGNOSTIC(Performed 06/29/2020) Performed for -induced glucose intolerance ([facility]), Dichorionic diamniotic twin inthird trimester ([facility]) * IMAGING/RADIOLOGY/XRAY RESULTS ORDER(Performed 06/28/2020) * NONSTRESS TEST(Performed 06/26/2020) * COMPREHENSIVE METABOLIC PANEL(Performed 06/26/2020) Performed for Supervision of other normal , antepartum ([facility]) * CBC W AUTO DIFFERENTIAL(Performed 06/26/2020) Performed for Supervision of other normal , antepartum ([facility]) * GLUCOSE - POINT OF CARE(Performed 06/26/2020) * TSH(Performed 06/15/2020) * T4 FREE(Performed 06/15/2020) * CBC W/O DIFFERENTIAL(Performed 06/15/2020) * HEMOGLOBINOPATHY EVALUATION PANEL(Performed 06/15/2020) * GTT 1 HR (50G) GESTATIONAL SCREEN(Performed 06/15/2020) * IMAGING/RADIOLOGY/XRAY RESULTS ORDER(Performed 06/13/2020) * IMAGING/RADIOLOGY/XRAY RESULTS ORDER(Performed 06/07/2020) * C. TRACHOMATIS + N. GONORRHOEAE + TRICH KYAW(Performed 06/06/2020) Performed for Supervision of other normal , antepartum (HCC) * NE SONO FU OR REPEAT(Performed 06/06/2020) Performed for Encounter for ultrasound to check growth (HCC), Dichorionic diamniotic twin in third trimester (HCC), Maternal obesity, antepartum, third trimester (HCC) * NE SONO FU OR REPEAT(Performed 06/06/2020) Performed for Encounter for ultrasound to check growth (HCC), Dichorionic diamniotic twin in third trimester (HCC), Maternal obesity, antepartum, third trimester (HCC) * URINALYSIS - POINT OF CARE (AMB) [facility](Performed 06/06/2020) Performed for Dichorionic diamniotic twin in second trimester (HCC) * NE SONO FU OR REPEAT(Performed 05/10/2020) Performed for Dichorionic diamniotic twin in second trimester (HCC), Obesity affecting in second trimester (HCC), Encounter for screening for cervical length ([facility]) * NE ULTRASND,PREG UTER,TRANSVAGIN(Performed 05/10/2020) Performed for Dichorionic diamniotic twin in second trimester (HCC), Obesity affecting in second trimester (HCC), Encounter for screening for cervical length (HCC) * IMAGING/RADIOLOGY/XRAY RESULTS ORDER(Performed 05/10/2020) Performed for Dichorionic diamniotic twin in second trimester (HCC), Obesity affecting in second trimester (HCC), Encounter for screening for cervical length (HCC) * URINALYSIS - POINT OF CARE (AMB) [facility](Performed 05/09/2020) Performed for Dichorionic diamniotic twin in second trimester (HCC) * IMAGING/RADIOLOGY/XRAY RESULTS ORDER(Performed 04/25/2020) * NE ULTRASND,PREG UTER,TRANSVAGIN(Performed 04/24/2020) Performed for Dichorionic diamniotic twin in second trimester (HCC), Hypothyroidism affecting in second trimester (HCC), High risk medications (not anticoagulants) long-term use * NE OB US, LIMITED, FETUS(S)(Performed 04/24/2020) Performed for Dichorionic diamniotic twin in second trimester ([facility]), Hypothyroidism affecting in second trimester ([facility]), High risk medications (not anticoagulants) long-term use * ALPHA FETOPROTEIN BLOOD MATERNAL QUAD PANEL(Performed 04/15/2020) Performed for Dichorionic diamniotic twin in second trimester ([facility]) * IMAGING/RADIOLOGY/XRAY RESULTS ORDER(Performed 04/12/2020) * NE ULTRASND,PREG UTER,TRANSVAGIN(Performed 04/11/2020) Performed for Dichorionic diamniotic twin in second trimester ([facility]), Encounter for screening for cervical length ([facility]) * NE ULTRASND,PREG UTERUS,IMAGE DOC(Performed 04/11/2020) Performed for Encounter for anatomic survey ([facility]), Dichorionic diamniotic twin in second trimester ([facility]), Obesity affecting in second trimester ([facility]), BMI 30.0-30.9,adult * NE ULTRA,PREG UTER,IMAGE,ADD GEST(Performed 04/11/2020) Performed for Encounter for anatomic survey ([facility]), Dichorionic diamniotic twin in second trimester ([facility]), Obesity affecting in second trimester ([facility]), BMI 30.0-30.9,adult * URINALYSIS - POINT OF CARE (AMB) [facility](Performed 04/11/2020) Performed for Dichorionic diamniotic twin in second trimester ([facility]) * IMAGING/RADIOLOGY/XRAY RESULTS ORDER(Performed 03/29/2020) * NE ULTRASND,PREG UTER,TRANSVAGIN(Performed 03/28/2020) Performed for Dichorionic diamniotic twin in second trimester ([facility]), Encounter for screening for cervical length ([facility]) * IMAGING/RADIOLOGY/XRAY RESULTS ORDER(Performed 03/14/2020) * NE OB US, LIMITED, FETUS(S)(Performed 03/13/2020) Performed for Dichorionic diamniotic twin in second trimester ([facility]), Duodenal ulcer disease, Encounter for screening for cervical length ([facility]) * NE ULTRASND,PREG UTER,TRANSVAGIN(Performed 03/13/2020) Performed for Dichorionic diamniotic twin in second trimester ([facility]), Duodenal ulcer disease, Encounter for screening for cervical length ([facility]) * URINALYSIS - POINT OF CARE (AMB) [facility](Performed 03/13/2020) Performed for Dichorionic diamniotic twin in second trimester (HCC) * PATHOLOGY TISSUE(Performed 03/30/2019) Performed for Peptic ulcer disease * NE COLONOSCOPY, DIAGNOSTIC(Performed 03/30/2019) Performed for Peptic ulcer disease * NE ED EGD FLEX TRANSORAL DX(Performed 03/30/2019) Performed for Peptic ulcer disease * EGD(Performed 03/30/2019) * ENDOSCOPY, COLON, DIAGNOSTIC(Performed 03/30/2019) * HCG URINE QUALITATIVE - POCT (IP) INTERFACED(Performed 03/30/2019) * HCG URINE QUAL POCT NOTIFICATION(Performed 03/30/2019) Performed for Pre-op testing * MRI ENTEROGRAPHY(Performed 02/06/2019) Performed for Chronic gastric ulcer without hemorrhage and without perforation, Peptic ulcer disease, Epigastric pain * CREATININE BLOOD - POCT (IP) [facility](Performed 02/06/2019) Performed for Chronic gastric ulcer without hemorrhage and without perforation * IRON + TIBC + FERRITIN(Performed 12/15/2018) Performed for Anemia, unspecified type * CBC W AUTO DIFFERENTIAL(Performed 12/15/2018) Performed for Anemia, unspecified type * HELICOBACTER PYLORI ANTIGEN FECES(Performed 12/01/2018) Performed for Peptic ulcer * GASTRIN(Performed 11/10/2018) Performed for Gastric ulcer without hemorrhage or perforation, unspecified chronicity * PATHOLOGY TISSUE(Performed 11/10/2018) Performed for Gastric ulcer without hemorrhage or perforation, unspecified chronicity, Generalized abdominal pain, Acute peptic ulcer, site unspecified, without hemorrhage or perforation * ESOPHAGOGASTRODUODENOSCOPY (EGD) DIAGNOSTIC(Performed 11/10/2018) Performed for Gastric ulcer without hemorrhage or perforation, unspecified chronicity, Generalized abdominal pain, Acute peptic ulcer, site unspecified, without hemorrhage or perforation * EGD(Performed 11/10/2018) * QUANTIFERON-TB GOLD PLUS 1-TUBE(Performed 10/11/2018) * GASTRIN(Performed 08/04/2018) Performed for Peptic ulcer disease * ESOPHAGOGASTRODUODENOSCOPY (EGD) DIAGNOSTIC(Performed 08/04/2018) Performed for Epigastric pain * PATHOLOGY TISSUE(Performed 08/04/2018) Performed for Epigastric pain * EGD(Performed 08/04/2018) * HCG URINE QUALITATIVE - POINT OF CARE(Performed 08/04/2018) * PATHOLOGY TISSUE(Performed 04/28/2018) Performed for Epigastric pain * ESOPHAGOGASTRODUODENOSCOPY (EGD) DIAGNOSTIC(Performed 04/28/2018) Performed for Epigastric pain * EGD(Performed 04/28/2018) * HCG URINE QUALITATIVE - POINT OF CARE(Performed 04/28/2018) * HCG URINE QUALITATIVE - POINT OF CARE(Performed 04/28/2018) * NM GASTRIC EMPTYING(Performed 03/03/2018) Performed for Epigastric pain * COMPREHENSIVE METABOLIC PANEL(Performed 02/24/2018) Performed for Epigastric pain * CBC W AUTO DIFFERENTIAL(Performed 02/24/2018) Performed for Epigastric pain * CULTURE URINE(Performed 07/26/2017) Performed for Acute pyelonephritis * URINALYSIS AUTO - POINT OF CARE (AMB) [facility](Performed 07/26/2017) Performed for Acute pyelonephritis Results * HEPATITIS C AB SCREEN RFLX NAAT QUANT (06/05/2024 4:57 PM INFORMATION MANAGEMENT SPECIALIST) [facility] Hepatitis C Antibody Non-react isidoro Non-reac tive 06/05/2024 6:06 PM INFORMATION MANAGEMENT SPECIALIST [facility] Comment:Hepatitis C Antibody screen indicates no serologic evidence of past or current infection with Hepatitis C Virus. Patients with unexplained liver disease who are immunocompromised or suspected of having acute Hepatitis C infection may benefit from Nucleic Acid Test (KRISTA) for Hepatitis C Viral RNA to confirm Hepatitis C status. Blood BLOOD SPECIMEN / Unknown Lab Venipuncture / Unknown 06/05/2024 4:57 PM INFORMATION MANAGEMENT SPECIALIST 06/05/2024 5:04 PM INFORMATION MANAGEMENT SPECIALIST Anna Adrian MD LAB - CHEMISTRY STEPHANIE SHARMA [facility] [address] [address], [facility] [phone] * QUANTIFERON-TB GOLD PLUS 4-TUBE (06/05/2024 4:57 PM INFORMATION MANAGEMENT SPECIALIST) [facility] QuantiFERON Mitogen Minus NIL 9.56 IU/mL 06/08/2024 3:33 AM INFORMATION MANAGEMENT SPECIALIST [facility] ([facility]) QuantiFERON Nil Value 0.45 IU/mL 06/08/2024 3:33 AM INFORMATION MANAGEMENT SPECIALIST [facility] ([facility]) QuantiFERON Plus TB1 Minus NIL 0.00 <=0.34 IU/mL 06/08/2024 3:33 AM INFORMATION MANAGEMENT SPECIALIST [facility] ([facility]) QuantiFERON Plus TB2 Minus NIL 0.00 <=0.34 IU/mL 06/08/2024 3:33 AM INFORMATION MANAGEMENT SPECIALIST [facility] ([facility]) QuantiFERON-TB Gold Plus Negative Negative 06/08/2024 3:33 AM [facility] ([facility]) Comment: INTERPRETIVE INFORMATION:Quantiferon TB Gold Plus Interferon [...] Mycobacterium tuberculosis Infection -- [place], 2010 (http://www.cdc.gov/mmwr/preview/mmwrhtml/et0866n4.htm), for more information concerning test performance in low-prevalence populations and use in occupational screening. Performed By: [facility] [address] [place] [address] Artist Blacksmith: Milton Iraheta MD, PhD CLIA Number: [id number] Blood BLOOD SPECIMEN / Unknown Lab Venipuncture / Unknown 06/05/2024 4:57 PM INFORMATION MANAGEMENT SPECIALIST 06/05/2024 5:12 PM INFORMATION MANAGEMENT SPECIALIST Anna Adrian MD LAB - CHEMISTRY STEPHANIE SHARMA [facility] Organization Address City/State/ZIP Co de Phone Number [facility] ([facility]) [address] [place] [address], [facility] * (ABNORMAL) DIFFERENTIAL MANUAL (06/05/2024 4:57 PM INFORMATION MANAGEMENT SPECIALIST) Pathologist [facility] Neutrophil % 42 41 - 74 % 06/05/2024 6:03 PM [facility] Lymphocyte % 48(H) 17 - 47 % 06/05/2024 6:03 PM [facility] Monocyte % 8 3 - 11 % 06/05/2024 6:03 PM [facility] Eosinophil % 2 0 - 7 % 06/05/2024 6:03 PM [facility] Neutrophil Absolute 4.28 1.60 - 7.50 x10E9/L 06/05/2024 6:03 PM [facility] Lymphocyte Absolute 4.90(H) 1.00 - 4.40 x10E9/L 06/05/2024 6:03 PM [facility] Monocyte Absolute 0.82 0.15 - 1.00 x10E9/L 06/05/2024 6:03 PM [facility] Eosinophil Absolute 0.20 0.00 - 0.60 x10E9/L 06/05/2024 6:03 PM [facility] RBC Morphology REVIEWED 06/05/2024 6:03 PM [facility] Schistocytes FEW(A) (none) 06/05/2024 6:03 PM [facility] Blood BLOOD SPECIMEN / Unknown Lab Venipuncture / Unknown 06/05/2024 4:57 PM INFORMATION MANAGEMENT SPECIALIST 06/05/2024 5:17 PM INFORMATION MANAGEMENT SPECIALIST Anna Adrian MD LAB - HEMATOLOGY ORD ERABLES [facility] [address] [place] [id number], [facility] [phone] * CBC WITH DIFFERENTIAL (06/05/2024 4:57 PM INFORMATION MANAGEMENT SPECIALIST) Only the most recent of6 resultswithin the time period is included. Pathologist [facility] WBC 10.2 4.0 - 10.7 x10E9/L 06/05/2024 6:03 PM [facility] RBC Count 4.28 3.90 - 5.20 x10E12/L 06/05/2024 6:03 PM [facility] Hemoglobin 11.9 11.9 - 15.8 g/dL 06/05/2024 6:03 PM [facility] Hematocrit 37.2 34.8 - 46.1 % 06/05/2024 6:03 PM [facility] MCV 86.9 80.0 - 98.0 fL 06/05/2024 6:03 PM [facility] MCH 27.8 26.7 - 33.6 pg 06/05/2024 6:03 PM [facility] MCHC 32.0 31.7 - 36.3 g/dL 06/05/2024 6:03 PM [facility] RDW-CV 12.9 11.3 - 14.8 % 06/05/2024 6:03 PM [facility] Platelet Count 348 150 - 420 x10E9/L 06/05/2024 6:03 PM [facility] MPV 10.5 7.8 - 11.4 fL 06/05/2024 6:03 PM [facility] Blood BLOOD SPECIMEN / Unknown Lab Venipuncture / Unknown 06/05/2024 4:57 PM INFORMATION MANAGEMENT SPECIALIST 06/05/2024 5:17 PM INFORMATION MANAGEMENT SPECIALIST Anna Adrian MD LAB - HEMATOLOGY ORD ERABLES [facility] [address] [place] [address], [facility] [phone] * (ABNORMAL) COMPREHENSIVE METABOLIC PANEL (06/05/2024 4:57 PM INFORMATION MANAGEMENT SPECIALIST) Only the most recent of4 resultswithin the time period is included. BUN 10 7 - 26 mg/dL 06/05/2024 5:51 PM [facility] Creatinine 0.66 0.56 - 0.96 mg/dL 06/05/2024 5:51 PM [facility] Sodium 139 136 - 145 mmol/L 06/05/2024 5:51 PM [facility] Potassium 3.7 3.5 - 4.5 mmol/L 06/05/2024 5:51 PM [facility] Chloride 108(H) 98 - 107 mmol/L 06/05/2024 5:51 PM [facility] CO2 23 22 - 29 mmol/L 06/05/2024 5:51 PM [facility] Glucose 83 70 - 99 mg/dL 06/05/2024 5:51 PM [facility] Calcium 8.9 8.4 - 10.2 mg/dL 06/05/2024 5:51 PM [facility] Protein Total 7.1 6.0 - 8.3 g/dL 06/05/2024 5:51 PM [facility] Albumin 3.8 3.4 - 5.0 g/dL 06/05/2024 5:51 PM [facility] Bilirubin Total 0.3 0.2 - 1.2 mg/dL 06/05/2024 5:51 PM [facility] Alkaline Phosphatase 99 40 - 150 U/L 06/05/2024 5:51 PM [facility] ALT 15 5 - 55 U/L 06/05/2024 5:51 PM [facility] AST 13 5 - 34 U/L 06/05/2024 5:51 PM [facility] Anion Gap 8 6 - 16 06/05/2024 5:51 PM [facility] BUN/Creatinine Ratio 15 7 - 23 06/05/2024 5:51 PM [facility] Osmolality Calculated 286 275 - 295 mOsm/kg 06/05/2024 5:51 PM [facility] Albumin/Globulin Ratio 1.2 1.1 - 2.3 06/05/2024 5:51 PM [facility] eGFR by CKD-EPI >90 >=90 mL/min/1.7 3 m2 06/05/2024 5:51 PM [facility] Blood BLOOD SPECIMEN / Unknown Lab Venipuncture / Unknown 06/05/2024 4:57 PM INFORMATION MANAGEMENT SPECIALIST 06/05/2024 5:17 PM [facility] Anna Adrian MD LAB - CHEMISTRY ORDE EDITH [facility] Organization Address City/State/ZIP Co de Phone Number [facility] [address] [place] [address], [facility] [phone] * HEPATITIS B CORE ANTIBODY TOTAL (06/05/2024 4:57 PM INFORMATION MANAGEMENT SPECIALIST) HBc Antibody Total Non-reacti ve Non-reacti ve 06/05/2024 6:06 PM INFORMATION MANAGEMENT SPECIALIST [facility] Blood BLOOD SPECIMEN / Unknown Lab Venipuncture / Unknown 06/05/2024 4:57 PM INFORMATION MANAGEMENT SPECIALIST 06/05/2024 5:04 PM INFORMATION MANAGEMENT SPECIALIST Anna Adrian MD LAB - CHEMISTRY STEPHANIE SHARMA Performing Organization Address City/[facility]/ZIP Co de Phone Number [facility] [address] [place] [phone], [facility] [phone] * HEPATITIS B SURFACE ANTIGEN W RFLX CONFIRMATION (06/05/2024 4:57 PM INFORMATION MANAGEMENT SPECIALIST) Pathologist [facility] Hepatitis B Virus Surface Antigen Non-reacti ve Non-reacti ve 06/05/2024 6:06 PM INFORMATION MANAGEMENT SPECIALIST [facility] Blood BLOOD SPECIMEN / Unknown Lab Venipuncture / Unknown 06/05/2024 4:57 PM INFORMATION MANAGEMENT SPECIALIST 06/05/2024 5:04 PM INFORMATION MANAGEMENT SPECIALIST Anna Adrian MD LAB - CHEMISTRY STEPHANIE SHARMA Performing Organization Address City/[facility]/ZIP Co de Phone Number [address] [address], [place] [phone] * NE PUNCH BX SKIN SINGLE LESION (04/10/2024 4:06 PM INFORMATION MANAGEMENT SPECIALIST) Narrative Anna Adrian MD - 04/10/2024 4:06 PM INFORMATION MANAGEMENT SPECIALIST Monty Bustillos MD 04/10/2024 4:06 PM Risks, benefits and alternatives to punch biopsy were discussed with the patient, including risks of infection, scar (100% chance), the possibility of non-diagnostic reading, and the potential need for further testing or treatment, including surgical. Patient expressed understanding and verbal consent was obtained. Location: ht flank Punch biopsy: 4mm Skin prep: Alcohol Anesthesia: 1% lidocaine with epinephrine Closure: 4-0 nylon suture Dressing and wound care discussed. Patient agrees to phone call for results and message if not available. Monty Bustillos MD [facility] Dermatology Resident Anna Adrian MD PROCEDURE/MINOR SURG ICAL ORDERABLES * DERMATOPATHOLOGY (04/10/2024 12:00 AM [facility]) Case Report Dermatopathology Report Case: [id number] Authorizing Provider: Anna Adrian MD Collected: 04/10/2024 12:00 AM Ordering Location: [facility] - Received: 04/10/2024 05:00 PM Dermatology Pathologist: Catherine Morris MD Specimen: Skin, right flank 4:31 PM [facility] DERMATOPATHOLOGY LABORATORY Final Diagnosis Specimen A. 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 The specimen consists of a punch biopsy measuring 4x4x6 mm. Jar 0. 4:31 PM [facility] DERMATOPATHOLOGY LABORATORY Microscopic Description Specimen A. SKIN, [...] with the clinical impression of guttate psoriasis. 4:31 PM [facility] DERMATOPATHOLOGY LABORATORY Disclaimer An external and internal positive and negative controls are appropriate for the histochemical, immunohistochemical and immunofluorescence stain(s) in this case (if any), except where stated explicitly. The performance characteristics of the stain(s) cited in this report were developed and its performance characteristic determined by the Dermatopathology Laboratory at [facility], directed by Dr. Michoacano Ayala. These tests need not be, and therefore are not, approved by the [place] Food and Drug Administration. The tests are used for clinical purposes. Billing Codes Specimen Charges Stain Charges 44153 1 [id number] 1 1 4 4:31 PM INFORMATION MANAGEMENT SPECIALIST DERMATOPATHOLOGY LABORATORY Embedded Images 4 4:31 PM INFORMATION MANAGEMENT SPECIALIST DERMATOPATHOLOGY LABORATORY Pathology/Cytolog y TISSUE SPECIMEN FROM SKIN / Unknown 04/10/2024 04/10/2024 5:00 PM INFORMATION MANAGEMENT SPECIALIST Anna Adrian MD LAB - PATHOLOGY/CYTO LOGY ORDERABLES DERMATOPATHOLOGY LABORATORY [facility] - Department of Dermatology [address] [phone] * TYPE + SCREEN PANEL (08/16/2020 6:35 PM CDT) Only the most recent of2 resultswithin the time period is included. ABO Rh O POS 08/16/2020 7:30 PM CDT [facility] Comment:History checked. Antibody Screen NEG 7:30 PM CDT [facility] Blood Bank BLOOD SPECIMEN / Unknown Venipuncture / Unknown 08/16/2020 6:35 PM CDT 08/16/2020 6:46 PM CDT Uriel Bacon MD LAB - BLOOD BANK ORD ERABLES Performing Organization Address City/[facility]/ZIP Co de Phone Number [facility] [address] [phone] * PROTEIN CREATININE RATIO URINE RANDOM PNL (08/16/2020 3:32 PM CDT) Protein Urine <6.8 <11.9 mg/dL 08/16/2020 4:00 PM CDT [facility] Creatinine Urine 64.12 mg/dL 08/16/2020 4:00 PM CDT [facility] Protein/Creatin ine Ratio Urine 08/16/2020 4:00 PM CDT [facility] Comment:Unable to calculate due to limited levels of measurable protein. Urine URINE SPECIMEN OBTAINED BY CLEAN CATCH PROCEDURE / Unknown Collection / Unknown 08/16/2020 3:32 PM CDT 08/16/2020 3:39 PM CDT Uriel Bacon MD LAB - URINE CHEMISTR Y ORDERABLES [facility] [address] [place] [address] * (ABNORMAL) CBC W/O DIFFERENTIAL (08/16/2020 3:30 PM CDT) Only the most recent of3 resultswithin the time period is included. WBC 10.7 4.4 - 10.7 x10E9/L 08/16/2020 3:45 PM CDT [facility] RBC 3.82 3.80 - 5.20 x10E12/L 08/16/2020 3:45 PM CDT [facility] Hemoglobin 9.6(L) 12.0 - 15.6 gm/dL 08/16/2020 3:45 PM CDT [facility] Hematocrit 33.0(L) 35.9 - 45.5 % 08/16/2020 3:45 PM CDT [facility] MCV 86.4 80.7 - 98.3 fl 08/16/2020 3:45 PM CDT [facility] MCH 25.1(L) 26.7 - 34.0 pg 08/16/2020 3:45 PM CDT [facility] MCHC 29.1(L) 30.8 - 35.9 gm/dL 08/16/2020 3:45 PM CDT [facility] Platelet Count 380 153 - 416 x10E9/L 08/16/2020 3:45 PM CDT [facility] RDW-CV 19.5(H) 12.1 - 14.9 % 08/16/2020 3:45 PM CDT [facility] MPV 10.8 9.4 - 12.9 fl 08/16/2020 3:45 PM CDT [facility] Blood BLOOD SPECIMEN / Unknown Venipuncture / Unknown 08/16/2020 3:30 PM CDT 08/16/2020 3:39 PM CDT Uriel Bacon MD LAB - HEMATOLOGY ORD ERABLES [facility] [address] [place] [address] * IMAGING RADIOLOGY XRAY RESULTS ORDER (08/13/2020 11:45 AM CDT) Only the most recent of14 resultswithin the time period is included. Anatomical Region Laterality Modality Other Narrative 08/13/2020 11:45 AM CDT Ordered by an unspecified provider. Scanned Document IMAGING * TRANSFUSE RED BLOOD CELL LEUKOREDUCED UNIT(S) (08/10/2020 3:05 PM CDT) Carolann Reyna MD NURSING - BLOO D PROD TRANSFUSION * PREPARE (CROSSMATCH) RBC UNIT(S), 2 Units (08/10/2020 12:15 PM CDT) Unit Description AS1 LR PRBC [facility] Unit ABO O [facility] Unit Rh POS [facility] Product Number R02 [facility] Unit Donor # [id number] [facility] Unit Status transfused [facility] Product Code [id number] [facility] Blood Type Barcode 5100 [facility] Expiration Date [id number] [facility] Unit Description AS1 LR PRBC [facility] Unit ABO O [facility] Unit Rh POS [facility] Product Number R02 [facility] Unit Donor # [id number] [facility] Unit Status transfused [facility] Product Code [id number] [facility] Blood Type Barcode 5100 [facility] Expiration Date [id number] [facility] Blood Bank BLOOD SPECIMEN / Unknown 08/08/2020 10:33 AM CDT Carolann Reyna MD LAB - BLOOD BA NK ORDERABLES [facility] [address] [place], [place] [address] [place] [address] * TRANSFUSE RED BLOOD CELL LEUKOREDUCED UNIT(S) (08/10/2020 11:32 AM CDT) Carolann Reyna MD NURSING - BLOO D PROD TRANSFUSION * GLUCOSE - POINT OF CARE (08/10/2020 6:40 AM CDT) Only the most recent of15 resultswithin the time period is included. Glucose WB/POC 79 70 - 106 mg/dL 08/10/2020 6:47 AM CDT [facility] Specimen Type Arterial/C apillary 08/10/2020 6:47 AM CDT [facility] Blood BLOOD SPECIMEN / Unknown 08/10/2020 6:40 AM CDT 08/10/2020 6:47 AM CDT Carolann Reyna MD LAB - POINT OF CARE ORDERABLES Performing Organization Address City/State/[facility] Co de Phone Number [facility] [address] [place] [address] * BLOOD GASES CORD CHERYL (08/09/2020 4:06 AM CDT) Only the most recent of2 resultswithin the time period is included. pH Cord Venous 7.36 7.28 - 7.40 pH 08/09/2020 4:21 AM CDT [facility] pCO2 Cord Venous 40 35 - 45 mm hg 08/09/2020 4:21 AM CDT [facility] pO2 Cord Venous 31 22 - 33 mm hg 08/09/2020 4:21 AM CDT [facility] Comment:L HCO3 Cord Venous 22 22 - 24 mmol/L 08/09/2020 4:21 AM CDT [facility] BE Cord Venous -2.8 mmol/L 08/09/2020 4:21 AM CDT [facility] O2 Saturation Cord Venous 74 % 08/09/2020 4:21 AM CDT [facility] Pablo's Test N/A 08/09/2020 4:21 AM CDT [facility] Sample Site UMB 08/09/2020 4:21 AM CDT [facility] Sample Type Mixed Venous 08/09/2020 4:21 AM CDT [facility] THERAPY Solvent Plant Treater ID [id number] 08/09/2020 4:21 AM CDT [facility] Notified Who celia singh l&wendie 08/09/2020 4:21 AM CDT [facility] Notification Time 08/09/2020 04:20 08/09/2020 4:21 AM CDT [facility] Notified By satya shaw 08/09/2020 4:21 AM CDT [facility] Blood CORD BLOOD SPECIMEN / Unknown 08/09/2020 4:06 AM CDT 08/09/2020 4:06 AM CDT Narrative [facility] - 08/09/2020 4:21 AM CDT baby b venous Carolann Reyna MD LAB - BLOOD GA SES ORDERABLES Performing Organization Address City/State/[facility] Co de Phone Number [facility] [address] [phone] * (ABNORMAL) BLOOD GASES CORD ARTERIAL (08/09/2020 4:06 AM CDT) Only the most recent of2 resultswithin the time period is included. pH Cord Arterial 7.19(L) 7.20 - 7.34 pH 08/09/2020 4:23 AM CDT [facility] pCO2 Cord Arterial 57(H) 45 - 55 mm hg 08/09/2020 4:23 AM CDT [facility] Comment:H pO2 Cord Arterial 17 12 - 25 mm hg 08/09/2020 4:23 AM CDT [facility] HCO3 Cord Arterial 21.2(L) 22.0 - 24.0 mmol/L 08/09/2020 4:23 AM CDT [facility] Comment:L BE Cord Arterial -7.8 mmol/L 08/10/19 4:23 AM CDT [facility] O2 Saturation Cord Arterial 27 % 08/09/2020 4:23 AM CDT [facility] Pablo's Test N/A 08/09/2020 4:23 AM CDT [facility] Sample Site UMB 08/09/2020 4:23 AM CDT [facility] Sample Type Cord blood Arterial 08/09/2020 4:23 AM CDT [facility] RESP THERAPY Solvent Plant Treater ID [id number] 08/09/2020 4:23 AM CDT [facility] Notified Who celia singh l&wendie 08/09/2020 4:23 AM CDT [facility] Notification Time 08/09/2020 04:23 08/09/2020 4:23 AM CDT [facility] Notified By satya del castillo rt 08/09/2020 4:23 AM CDT [facility] Blood, arterial CORD BLOOD SPECIMEN / Unknown 08/09/2020 4:06 AM CDT 08/09/2020 4:06 AM CDT Narrative [facility] - 08/09/2020 4:23 AM CDT baby b arterial Carolann Reyna MD LAB - BLOOD GA SES ORDERABLES Performing Organization Address City/State/[facility] Co de Phone Number [facility] [address] [place] [address] * EPIDURAL BLOCK PERF (08/08/2020 4:43 PM CDT) Narrative Virgilio Baer APRN-AUDITING CLERK - 08/08/2020 4:43 PM CDT Virgilio Baer APRN-CRNA 08/08/2020 4:43 PM Neuraxial Block Note Pre-Procedure: Procedure Name: Neuraxial Block Patient Location: OB Indications: labor analgesia Pre-Anesthetic Checklist: Patient identified, IV Checked, Risks and benefits discussed, Surgical consent verified, Monitors and equipment, Site examined, Pre-op evaluation done, Time-out performed, Informed consent obtained, Questions answered/anesthesia questions answered and Allergies reviewed Anticoagulation/ Anti-thrombosis status confirmed? Yes Supplemental O2: room air Monitors: BP and continuous pluse ox Patient Condition: awake Patient Sedated? No Procedure: Block Type: Epidural Prep: Betadine Sterile Field: mask, cap/hat, sterile established and sterile gloves Approach: midline Skin was localized? Yes Skin localized with: lidocaine (XYLOCAINE) 1 % injection, 3 mL Epidural Block: Is this procedure for postop pain? No Needle Type: Tuohy Needle gauge: 18 G Needle length: 90 mm Placement Site: L3-L4 Number of Attempts: 1 Loss of Resistance: 7 air Catheter length at skin (cm): 13 CSF Aspirated from catheter: No Blood Aspirated: No Test Dose: lidocaine 1.5% with 1-200,000 epinephrine 3 mL Test Dose Response: No Epidural Infusion Medications: Ropivacaine: 0.2% with Fentanyl 2mcg/mL in NS , 150 cc (mL) at 12 mL/hr Degree of difficulty: none Procedure Tolerance: tolerated well Position post procedure: left uterine displacement Vital Signs: Vital signs moniitored and stable throughout. See nursing vitals flowsheet for details. Staff: Anesthesia Provider: Virgilio Baer APRN-AUDITING CLERK - performed the procedure Jaylene Fisher DO GENERAL ANESTHESIA ORDERABLES * BLOOD TYPE VERIFICATION (08/08/2020 11:04 AM CDT) ABO Rh O POS 08/08/2020 11:32 AM CDT [facility] Blood Bank BLOOD SPECIMEN / Unknown Venipuncture / Unknown 08/08/2020 11:04 AM CDT 08/08/2020 11:08 AM CDT Carolann Reyna MD LAB - BLOOD BA NK ORDERABLES Performing Organization Address [facility] Co de Phone Number [facility] [address] [place] [address] * SYPHILIS ANTIBODY CASCADING REFLEX (08/08/2020 10:21 AM CDT) Treponema pallidum Antibody Non Reactive Non Reactive 08/08/2020 11:48 AM CDT [facility] Comment: No Laboratory evidence of syphilis infection. Note: Circulating antibodies may be low or undetectable in early infection. If recent exposure is suspected, re-draw sample in 2-4 weeks and repeat testing. Blood BLOOD SPECIMEN / Unknown Venipuncture / Unknown 08/08/2020 10:21 AM CDT 08/08/2020 10:33 AM CDT Carolann Reyna MD LAB - SEROLOGY ORDERABLES Performing Organization Address City/[facility] Co de Phone Number [facility] [address] [place] [address] * NE SONO FU OR REPEAT, NE SONO FU OR REPEAT, NE BIOPHYSICAL PROFILE, NE BIOPHYSICAL PROFILE (08/01/2020 2:58 PM CDT) Narrative Betty Chambers - 08/01/2020 2:58 PM CDT Betty Chambers 08/01/2020 2:58 PM Documentation in digisonics Melva Becker MD PROCEDURE/MINOR S URGICAL ORDERABLES * NE BIOPHYSICAL PROFILE, NE BIOPHYSICAL PROFILE (07/26/2020 2:42 PM CDT) Narrative Giovana Marmolejo RDMS - 07/26/2020 2:42 PM CDT Giovana Marmolejo RD 07/26/2020 2:42 PM Documentation in digisonics. Kristy Kaye MD PROCEDURE/MINOR LOS GICAL ORDERABLES * URINALYSIS - POINT OF CARE (AMB) [facility] (07/26/2020) Only the most recent of7 resultswithin the time period is included. Specific Solomon UA 1.020 pH UA 6 WBC UA n Nitrite UA n Protein UA n Glucose UA n Ketones UA POCT n Urobilinogen UA n Bilirubin UA POCT n Blood Urine POCT n Urine URINE / Unknown 07/26/2020 Bertin Saxena MD LAB - POINT OF CARE ORDERABLES * NE BIOPHYSICAL PROFILE, NE BIOPHYSICAL PROFILE (07/16/2020 1:41 PM CDT) Narrative Nehal Lopez - 07/16/2020 1:41 PM CDT Nehal Lopez 07/16/2020 1:42 PM Documentation in digisonics. See NST Flowsheet. Carolann Reyna MD PROCEDURE/JUANA R SURGICAL ORDERABLES * CULTURE STREP B+SUSCEPT (07/16/2020 1:03 PM CDT) Culture Strep B with Susc [facility] Comment: CULTURE, GROUP B STREP WITH SUSCEPTIBILITY Micro Number: [id number] Test Status: Final Specimen Source: VAGINAL/ANORECTAL Specimen Quality: Adequate Result: No group B Streptococcus isolated Note per CDC guidelines optimal recovery is achieved by swabbing both the lower vagina and rectum (through the anal sphincter). REPORT COMMENT: FASTING:UNKNOWN Test Performed at: [facility] [address] [place] [address] NISHA BORREGO DO,MPH Microbiology MISCELLANEOUS SAMPLES / Unknown 07/16/2020 1:03 PM CDT 07/16/2020 1:13 PM CDT Carolann Reyna MD LAB - MICROBIO LOGY ORDERABLES Performing Organization Address [facility]/ZIP Co de Phone Number [facility] [address] [place] [address] * NE BIOPHYSICAL PROFILE, NE SONO FU OR REPEAT (07/04/2020 11:18 AM INFORMATION MANAGEMENT SPECIALIST) Narrative Nehal Lopez - 07/04/2020 11:18 AM INFORMATION MANAGEMENT SPECIALIST Nehal Lopez 07/04/2020 11:18 AM Documentation in digisonics. See NST Flowsheet. Shirin Valencia MD PROCEDURE/MINOR LOS GICAL ORDERABLES * (ABNORMAL) GTT 3 HR (100G) GESTATIONAL DIAGNOSTIC (06/29/2020 8:24 AM INFORMATION MANAGEMENT SPECIALIST) Glucose Fasting GTT 102(H) 65 - 94 mg/dL [facility] GTT 1Hr 189(H) <180 mg/dL [facility] Glucose 2Hr 128 <155 mg/dL [facility] GTT 3 Hr 117 <140 mg/dL [facility] Quest See Below [facility] Comment: Stuart/Coustan Criteria: Two or more values greater than the above reference intervals are suggestive of gestational diabetes. REPORT COMMENT: FASTING:YES Test Performed at: [facility] [address] [place] [address] NISHA BORREGO DO,MPH Blood BLOOD SPECIMEN / Unknown 06/29/2020 8:24 AM INFORMATION MANAGEMENT SPECIALIST 06/29/2020 8:25 AM INFORMATION MANAGEMENT SPECIALIST Shirin Valencia MD LAB - CHEMISTRY ORD ERABLES [facility] [address] [place] [id number] * NONSTRESS TEST (06/26/2020 11:19 PM INFORMATION MANAGEMENT SPECIALIST) Narrative Linda Krishnamurthy MD - 06/26/2020 11:19 PM INFORMATION MANAGEMENT SPECIALIST Aline Marie RN 06/26/2020 11:50 PM Name: Luisa Luke Date of : 1990 Today's Date: 06/26/2020 31w6d NST RESULTS (MULTIPLES) OBJECTIVE FINDINGS , , , BP: 117/66 NST Indication(s): (swelling and dizziness) Uterine Irritability: Yes Contractions: Irregular Frequency: 2-5 Duration (sec) Range: 40-80 Perceived Intensity: Mild COMMENTS/INTERVENTIONS OBJECTIVE FINDINGS Movement A: Present Monitoring Mode A: External Baseline FHR: 130 BPM Variability A: Moderate Accelerations-A: Yes Decelerations-A: None Movement B: Present Monitoring Mode B: External Baseline FHR B: 135 BPM Variability B: Moderate Accelerations-B: Yes Decelerations-B: None Aline Marie RN Paulina Christianson MD OB GYNE ORDERABLES * (ABNORMAL) GTT 1 HR (50G) GESTATIONAL SCREEN (06/15/2020 7:31 AM INFORMATION MANAGEMENT SPECIALIST) Pathologist [facility] Glucose Gestational Screen 174(H) <140 mg/dL [facility] Comment: One hour value of > or = 140 mg/dL indicates the need for a diagnostic 75 g dose 2-hour or 100 g dose 3-hour oral glucose tolerance test; patient fasting is required. Test Performed at: [facility] [address] [place] [address] NISHA BORREGO DO,MPH 06/15/2020 7:31 AM INFORMATION MANAGEMENT SPECIALIST 06/15/2020 7:33 AM INFORMATION MANAGEMENT SPECIALIST Shirin Valencia MD LAB - CHEMISTRY ORD ERABLES [facility] [address] [place] [address] * (ABNORMAL) HEMOGLOBINOPATHY EVALUATION PANEL (06/15/2020 7:31 AM INFORMATION MANAGEMENT SPECIALIST) RBC 3.49(L) 3.80 - 5.10 Mill/uL [facility] Hemoglobin 9.4(L) 11.7 - 15.5 g/dL [facility] Hematocrit 32.3(L) 35.0 - 45.0 % [facility] MCV 92.6 80.0 - 100.0 FL [facility] MCH 26.9(L) 27.0 - 33.0 pg [facility] RDW 16.4(H) 11.0 - 15.0 % [facility] Hemoglobin A 97.8 >96.0 % [facility] Hemoglobin F 0.0 <2.0 % [facility] Hemoglobin A2 2.2 1.8 - 3.5 % [facility] Interpretation see note [facility] Comment: NORMAL PATTERN R/O IRON DEFICIENCY ANEMIA By high-performance liquid chromatography (HPLC), there is a normal pattern of hemoglobins and normal levels of HbA2 and HbF are present. No variant hemoglobins are observed. This is consistent with A/A phenotype. However, since the patient has anemia and low MCV/MCH, studies to exclude iron deficiency are recommended. If iron deficiency is excluded, the patient could have an alpha-thalassemic trait, or (less likely) beta-thalassemia trait. Rare variant hemoglobins have been known to co-elute with hemoglobin A by high-performance liquid chroma- tography. If clinically indicated, Thalassemia and Hemoglobinopathy Comprehensive is available (Test code 42391). The performance of the device used for this testing, [employer] System, has not been fully characterized by [employer]. Clinicians are advised to consider a patient's signs, symptoms, history and results of other diagnostic tests when interpreting results from this device. If the results do not match the patient's clinical presentation, the patient sample should be retested using an alternate test method. Test Performed at: [facility] [id number] [place] [address] SHASHA DONATO MD,PHD 06/15/2020 7:31 AM INFORMATION MANAGEMENT SPECIALIST 06/15/2020 7:33 AM INFORMATION MANAGEMENT SPECIALIST Shirin Valencia MD LAB - CHEMISTRY ORD ERABLES [facility] [address] [place] [address] * TSH (06/15/2020 7:31 AM INFORMATION MANAGEMENT SPECIALIST) [facility] TSH 0.58 mIU/L [facility] Comment: Reference Range > or = 20 Years 0.40-4.50 Ranges First trimester 0.26-2.66 Second trimester 0.55-2.73 Third trimester 0.43-2.91 REPORT COMMENT: FASTING:YES Test Performed at: [facility] [address] [place] [address] NISHA BORREGO DO,MPH 06/15/2020 7:31 AM INFORMATION MANAGEMENT SPECIALIST 06/15/2020 7:33 AM INFORMATION MANAGEMENT SPECIALIST Shirin Valencia MD LAB - CHEMISTRY ORD ERABLES Performing Organization Address City/[facility] Co de Phone Number [facility] [address] [place] [address] * T4 FREE (06/15/2020 7:31 AM INFORMATION MANAGEMENT SPECIALIST) [facility] T4 Free 0.9 0.8 - 1.8 ng/dL [facility] Comment: [facility] [place] [address] NISHA BORREGO DO,MPH 06/15/2020 7:31 AM INFORMATION MANAGEMENT SPECIALIST 06/15/2020 7:33 AM INFORMATION MANAGEMENT SPECIALIST Shirin Valencia MD LAB - CHEMISTRY ORD ERABLES Performing Organization Address City/[facility] Co de Phone Number [facility] [address] [place] [address] * C. TRACHOMATIS + N. GONORRHOEAE + TRICH KYAW (06/06/2020 10:53 AM INFORMATION MANAGEMENT SPECIALIST) [facility] Chlamydia Trachomatis KYAW Not detected Not detected 06/11/2020 4:03 PM INFORMATION MANAGEMENT SPECIALIST [facility] Neisseria Gonorrhoeae KYAW Not detected Not detected 06/11/2020 4:03 PM INFORMATION MANAGEMENT SPECIALIST [facility] Trichomonas Vaginalis KYAW Not detected Not detected 06/11/2020 4:03 PM INFORMATION MANAGEMENT SPECIALIST [facility] Microbiology URINE / Unknown 06/06/2020 1 0:53 AM INFORMATION MANAGEMENT SPECIALIST 06/07/2020 12:31 PM INFORMATION MANAGEMENT SPECIALIST Narrative [facility] - 06/11/2020 4:03 PM INFORMATION MANAGEMENT SPECIALIST This analysis was performed using Gen-Probe Aptima Combo 2 and Gen-Probe Aptima Assay. These methodologies are U.S. FDA approved for Chlamydia trachomatis, Neisseria gonorrhoeae testing for urine and urogenital swabs from men and women, and cervical cells submitted in ThinPrep vials. Performance characteristics of testing for Trichomonas vaginalis on specimens using the Gen-Probe Aptima Trichomonas vaginalis Assay on the [place] system and rectal and pharyngeal swabs with Gen-Probe Aptima combo 2 were determined by the [facility] at [facility]. They have not been cleared or approved by the U.S Food and Drug Administration (FDA). The FDA has determined that such clearance approval is not necessary. This test is used for clinical purposes and should not be regarded as investigational or for research. This laboratory is certified under the Clinical Laboratory Improvements Amendments of 1988 (CLIA 1988), as qualified to perform high complexity laboratory testing. Shirin Valencia MD LAB - MICROBIOLOGY ORDERABLES [facility] [address] [phone] * NE SONO FU OR REPEAT, NE SONO FU OR REPEAT (06/06/2020 9:52 AM INFORMATION MANAGEMENT SPECIALIST) Narrative Giovana Marmolejo RDMS - 06/06/2020 9:52 AM INFORMATION MANAGEMENT SPECIALIST Giovana Marmolejo RDMS 06/06/2020 9:52 AM Documentation in digisonics. Shirin Valencia MD PROCEDURE/MINOR LOS GICAL ORDERABLES * NE ULTRASND,PREG UTER,TRANSVAGIN, NE SONO FU OR REPEAT (05/10/2020 9:00 AM INFORMATION MANAGEMENT SPECIALIST) Narrative Jena Apr - 05/10/2020 9:00 AM INFORMATION MANAGEMENT SPECIALIST Jena, 05/10/2020 9:00 AM Documentation in Digisonics. Shirin Valencia MD PROCEDURE/MINOR LOS GICAL ORDERABLES * NE OB US, LIMITED, FETUS(S), NE ULTRASND,PREG UTER,TRANSVAGIN (04/24/2020 10:34 AM INFORMATION MANAGEMENT SPECIALIST) Narrative Betty Chambers - 04/24/2020 10:34 AM INFORMATION MANAGEMENT SPECIALIST Betty Chambers 04/24/2020 10:34 AM Documentation in digisonics Senia Chaudhary MD PROCEDU RE/MINOR SURGICAL ORDERABLES * ALPHA FETOPROTEIN BLOOD MATERNAL QUAD PANEL (04/15/2020 12:13 PM INFORMATION MANAGEMENT SPECIALIST) Interpretation [facility] Comment: Screen negative for open NTD and Down syndrome for twins. Trisomy 18 risk cannot be calculated for twins. MSAFP Risk Open NTD NOT CALCULATED [facility] Age Risk Down Syndrome 1 IN 706 [facility] Quad Risk Down Syndrome <1 IN 5000 (PSEUDORISK) [facility] MSS3 Trisomy 18 Risk NOT CALCULATED [facility] MSAFP 116.6 ng/mL [facility] Adjusted Multiple of Median 1.75 [facility] Estriol Unconjugated 4.31 ng/mL [facility] Adjusted Multiple of Median 1.79 [facility] HCG Quant 18.75 IU/mL [facility] Adjusted Multiple of Median 1.16 [facility] Inhibin A 175 pg/mL [facility] Adjusted Multiple of Median 1.10 [facility] Comments [facility] Comment: This patient's VICTOR MANUEL (estimated date of delivery) was used to calculate the gestational age. This patient is carrying twins. The AFP MoM is normal for twins, indicating a low risk for a neural tube defect. The Down syndrome risk reported is a pseudorisk, calculated by dividing the AFP MoM by 2.0, the hCG MoM by 2.0, the uE3 MoM by 1.7, and the WYATT MoM by 2.0 and treating the values as a sousa . The adjusted values fall within the range most often seen in unaffected sousa pregnancies. This puts this in a low risk group for Down syndrome. A normal test result can never guarantee the of a normal child. In the case of twin pregnancies, some authors recommend a high resolution ultrasound to complement this screen. [facility] See Below [facility] Comment: This is a screening test, not a diagnostic test. No reagent system establishing the risk of chromosome abnormalities during has been approved by the FDA. This risk assessment report is based in part on demographic data provided by the ordering physician. It has been observed that patients who smoke cigarettes during may have a slightly increased risk of having a false positive TAMIKA screen for Down syndrome or trisomy 18. Please notify the laboratory promptly if any data are incorrect. For assistance with recalculations, please call your local [facility] laboratory. For assistance with interpretation of these results, please contact your local [facility] genetic counselor or call [phone]). Interpretive Cut-offs Screen Positive For Open NTD: > or = 2.50 adjusted MOM > or = 1.90 adjusted MOM for Insulin-dependent diabetics > or = 4.00 adjusted MOM for Twins > or = 3.50 adjusted MOM for Twins insulin-dependent Diabetics > or = 4.50 adjusted MOM for Triplets Screen Positive For Down Syndrome: QUAD Risk Down Syndrome that equals or exceeds 1 in 270 Screen Positive For Trisomy 18: MSS3 Trisomy 18 Risk that equals or exceeds 1 in 100 Gestational Age 21.6 weeks [facility] Patient Weight 192 lbs [facility] VICTOR MANUEL 08/22/2020 [facility] VICTOR MANUEL Determined By ULTRASOUND [facility] Race [facility] Number of Fetuses 2 [facility] Insulin Dependent Diabetic NO [facility] Repeat Specimen NO [facility] History Neural Tube Defect NO [facility] History of Down Syndrome NO [facility] Donor Egg NO [facility] Donor Age Egg Retrieval NOT GIVEN [facility] Cigarette Smoker NO [facility] Comment: Test Performed at: [facility] [address] [place] [address] NISHA BORREGO DO,MPH Blood BLOOD SPECIMEN / Unknown 04/15/2020 12:13 PM INFORMATION MANAGEMENT SPECIALIST 04/15/2020 12:18 PM INFORMATION MANAGEMENT SPECIALIST Vinny Salas MD LAB - CHEMISTRY STEPHANIE [facility] Organization Address City/State/ZIP Co de Phone Number [facility] [address] [place] [address] * NE ULTRASND,PREG UTER,TRANSVAGIN (04/11/2020 4:20 PM INFORMATION MANAGEMENT SPECIALIST) Narrative Nehal Lopez - 04/11/2020 4:20 PM INFORMATION MANAGEMENT SPECIALIST Nehal Lopez 04/11/2020 4:20 PM Documentation in digisonics. Vinny Salas MD PROCEDURE/MINOR SURG ICAL ORDERABLES * NE ULTRA,PREG UTER,IMAGE,ADD GEST, NE ULTRASND,PREG UTERUS,IMAGE DOC (04/11/2020 4:19 PM INFORMATION MANAGEMENT SPECIALIST) Narrative Nehal Lopez - 04/11/2020 4:19 PM INFORMATION MANAGEMENT SPECIALIST Nehal Lopez 04/11/2020 4:20 PM Documentation in digisonics. Vinny Salas MD PROCEDURE/MINOR SURG ICAL ORDERABLES * NE ULTRASND,PREG UTER,TRANSVAGIN (03/28/2020 9:05 AM INFORMATION MANAGEMENT SPECIALIST) Giovana Asif RDMS - 03/28/2020 9:05 AM INFORMATION MANAGEMENT SPECIALIST Giovana Marmolejo, CHRISTIAN 03/28/2020 9:06 AM Documentation in digisonics. Vinny Salas MD PROCEDURE/MINOR SURG ICAL ORDERABLES * NE ULTRASND,PREG UTER,TRANSVAGIN, NE OB US, LIMITED, FETUS(S) (03/13/2020 3:30 PM INFORMATION MANAGEMENT SPECIALIST) Ismael Giovana Marmolejo RDMS - 03/13/2020 3:30 PM INFORMATION MANAGEMENT SPECIALIST Giovana Marmolejo, CHRISTIAN 03/13/2020 3:30 PM Documentation in digisonics. Bertin Saxena MD PROCEDURE/JUANA R SURGICAL ORDERABLES * PATHOLOGY TISSUE (03/30/2019 8:39 AM INFORMATION MANAGEMENT SPECIALIST) Only the most recent of4 resultswithin the time period is included. Case Report Surgical Pathology Report Case: [id number] Authorizing Provider: Malachi Osborne MD Collected: 03/30/2019 08:39 AM Ordering Location: [facility] Received: 03/30/2019 10:19 AM Pathologist: Senia Sandoval MD Specimens: A) - Gastric, gastric bx r/o h.pylori B) - Small Bowel Biopsy, TI bx C) - Colon, random colon bx D) - Rectum, rectal bx 03/31/2019 4:40 PM [facility] Final Diagnosis Stomach, biopsy (A): - Chronic active gastritis with ulceration - Negative for H. pylori Small intestine, terminal ileum, biopsy (B): - Fragment of enteric mucosa with reactive changes Large intestine, random colon, biopsy (C): - No histopathologic abnormality Large intestine, rectum, biopsy (D): - No histopathologic abnormality 03/31/2019 4:40 PM [facility] Microscopic Description and Comment Microscopic examination substantiates the final diagnosis. Given the ulceration and activity in the gastric biopsy (part A), an immunostain for H. pylori was performed (block A1, with appropriate control staining) and is negative. 03/31/2019 4:40 PM [facility] Clinical History The patient is a 29-year-old woman with epigastric abdominal pain who is also here for follow-up of gastric ulcer. Operative procedure/findings: EGD- gastric ulcers (improved from previous exam), biopsied; colonoscopy - erythematous, eroded and plaque covered mucosa in the entire examined ileum, biopsied; erythematous, inflamed, plaque covered and ulcerated mucosa in the rectum, biopsied; the examination of colon was otherwise normal, randomly biopsied. 03/31/2019 4:40 PM [facility] Gross Description The requisition and specimen(s) are labeled with the patient's name, Luisa Luke. Received in formalin, specimen A, gastric BX R\O H. PYL + , are multiple white to pale pink alicia tissue fragments measuring 0.1-0.3 cm in greatest dimension, with an aggregate measurement of 0.6 x 0.6 x 0.2 cm. Submitted in toto in cassette A1. Received in formalin, specimen B, TI BX are multiple white to pale pink alicia tissue fragments measuring 0.1-0.2 cm in greatest dimension, with an aggregate measurement of 0.6 x 0.4 x 0.1 cm. Submitted in toto in cassette B1. Received in formalin, specimen C, random colon BX are multiple white alicia tissue fragments measuring 0.2-0.3 cm in greatest dimension, with an aggregate measurement of 1.3 x 0.3 x 0.1 cm. Submitted in toto in cassette C1. Received in formalin, specimen D, rectal BX are multiple white to pink alicia tissue fragments measuring 0.2-0.3 cm in greatest dimension, with an aggregate measurement of 0.5 x 0.5 x 0.1 cm. (KK) 03/31/2019 4:40 PM [facility] Disclaimer The performance characteristics of all immunohistochemical and indirect immunofluorescence stains (if any) cited in this report were determined by the [facility] Laboratory of [facility]. Some of these tests were developed by our own laboratory and have not been cleared or approved by the US Food and Drug Administration. The FDA does not require this test to go through premarket FDA review. These tests are used for clinical purposes. They should not be regarded as investigational or for research. This laboratory is certified under the Clinical Laboratory Improvement Amendments (CLIA) as qualified to perform high complexity clinical laboratory testing. This case has been personally reviewed and interpreted by the attending (teaching) pathologist. 03/31/2019 4:40 PM [facility] Embedded Images 03/31/2019 4:40 PM [facility] Biopsy, NOS GASTRIC CONTENTS SPECIMEN / Unknown 03/30/2019 8:39 AM INFORMATION MANAGEMENT SPECIALIST 03/30/2019 10:19 AM INFORMATION MANAGEMENT SPECIALIST Comment:Pre-op diagnosis: K27.9 Peptic ulcer disease Biopsy, NOS ENTEROTOMY OF SMALL BOWEL FOR BIOPSY / Unknown 03/30/2019 9:11 AM INFORMATION MANAGEMENT SPECIALIST 03/30/2019 10:19 AM INFORMATION MANAGEMENT SPECIALIST Comment:Pre-op diagnosis: K27.9 Peptic ulcer disease Biopsy, NOS COLON PART / Unknown 03/30/2019 9:12 AM INFORMATION MANAGEMENT SPECIALIST 03/30/2019 10:19 AM INFORMATION MANAGEMENT SPECIALIST Comment:Pre-op diagnosis: K27.9 Peptic ulcer disease Biopsy, NOS ENTIRE RECTUM / Unknown 03/30/2019 9:14 AM INFORMATION MANAGEMENT SPECIALIST 03/30/2019 10:19 AM INFORMATION MANAGEMENT SPECIALIST Comment:Pre-op diagnosis: K27.9 Peptic ulcer disease Malachi Osborne MD LAB - PATHOLOGY/CYTO LOGY ORDERABLES Performing Organization Address City/State/[facility] de Phone Number [facility] [address] [phone] * EGD (03/30/2019 8:26 AM INFORMATION MANAGEMENT SPECIALIST) Report Endoscopy POC Endoscopy Department Report __ _ Patient Name: Luisa Luke Procedure Date: 03/30/2019 8:26 AM Date of : 1990 Classification: Outpatient Gender: Female Ethnicity: Not or Race: Black or __ _ Providers: Malachi Osborne MD, Rachael Taylor (Fellow) Referring MD: El Daugherty (Referring MD) Procedure: Upper GI endoscopy Indications: Epigastric abdominal pain, Follow-up of gastric ulcer Medications: Monitored Anesthesia Care Description of Procedure: Pre-Anesthesia Assessment: - Prior to the procedure, a History and Physical was performed, and patient medications and allergies were reviewed. The patient's tolerance of previous anesthesia was also reviewed. The risks and benefits of the procedure and the sedation options and risks were discussed with the patient. All questions were answered, and informed consent was obtained. Prior Anticoagulants: The patient has taken no previous anticoagulant or antiplatelet agents. ASA Grade Assessment: II - A patient with mild systemic disease. After reviewing the risks and benefits, the patient was deemed in satisfactory condition to undergo the procedure. After obtaining informed consent, the endoscope was passed under direct vision. Throughout the procedure, the patient's blood pressure, pulse, and oxygen saturations were monitored continuously. The GIF-H190 was introduced through the mouth, and advanced to the second part of duodenum. The upper GI endoscopy was accomplished without difficulty. The patient tolerated the procedure well. Findings: The examined esophagus was normal. Esophagogastric landmarks were identified: the Z-line was found at 39 cm, the gastroesophageal junction was found at 39 cm and the site of hiatal narrowing was found at 39 cm from the incisors. Several small cratered and superficial gastric ulcers were found in the gastric antrum. The largest lesion was 5 mm in largest dimension. Biopsies were taken with a cold forceps for histology. The appearance is improved from last EGD. No other significant abnormalities were identified in a careful examination of the stomach. A 6 mm diverticulum was found in the duodenal bulb. One linear duodenal ulcer was found in the duodenal bulb at the edge of the diverticulum. The lesion was 2 mm in largest dimension. The exam of the duodenum was otherwise normal. The cardia and gastric fundus were normal on retroflexion. Estimated Blood Loss: Estimated blood loss was minimal. Complications: No immediate complications. Impression: - Normal esophagus. - Esophagogastric landmarks identified. - Gastric ulcers. Improved from previous exam Biopsied. - Duodenal diverticulum. - One small shallow linear duodenal ulcer. Recommendation: - Continue present medications. - Resume regular diet. - Await pathology results. - Return to GI clinic as previously scheduled. Attending Participation: I was present and participated during the entire procedure, including non-fiore portions. Procedure Code(s): --- Professional --- 52182, Esophagogastroduode noscopy, flexible, transoral; with biopsy, single or multiple Diagnosis Code(s): --- Professional --- K25.9, Gastric ulcer, unspecified as acute or chronic, without hemorrhage or perforation K26.9, Duodenal ulcer, unspecified as acute or chronic, without hemorrhage or perforation R10.13, Epigastric pain K57.10, Diverticulosis of small intestine without perforation or abscess without bleeding CPT copyright 2016 [employer]. All rights reserved. The codes documented in this report are preliminary and upon chute worker review may be revised to meet current compliance requirements. Malachi Osborne MD 03/30/2019 8:58:28 AM Note Initiated On: 03/30/2019 8:26 AM Number of Addenda: 0 [facility] [address] [facility] [place] [address] [facility] 03/30/2019 8:26 AM INFORMATION MANAGEMENT SPECIALIST Malachi Osborne MD GI PROCEDURE ORDERAB LES [facility] * ENDOSCOPY, COLON, DIAGNOSTIC (03/30/2019 8:24 AM INFORMATION MANAGEMENT SPECIALIST) Report Endoscopy POC Endoscopy Department Report _ Patient Name: Luisa Luke Procedure Date: 03/30/2019 8:24 AM Date of : 1990 Classification: Outpatient Gender: Female Ethnicity: Not or Race: Black or _ Providers: Malachi Osborne MD, Rachael Taylor (Fellow) Referring MD: El Daugherty (Referring MD) Procedure: Colonoscopy Indications: Abdominal pain in the left upper quadrant, Upper abdominal pain Medications: Monitored Anesthesia Care Description of Procedure: After I obtained informed consent, the scope was passed under direct vision. Throughout the procedure, the patient's blood pressure, pulse, and oxygen saturations were monitored continuously. The GIF-H190 was introduced through the anus and advanced to the terminal ileum, with identification of the appendiceal orifice and IC valve. The PCF-H190DL was introduced through the anus and advanced to. The colonoscopy was performed without difficulty. The patient tolerated the procedure well. The quality of the bowel preparation was evaluated using the BBPS ([place] Bowel Preparation Scale) with scores of: Right Colon = 3, Transverse Colon = 3 and Left Colon = 3 (entire mucosa seen well with no residual staining, small fragments of stool or opaque liquid). The total BBPS score equals 9. Anatomical landmarks were photographed. Findings: The perianal and digital rectal examinations were normal. A localized area of moderately erythematous, inflamed, exsudate covered and possibly ulcerated mucosa was found in the distal 3-4 centimeters of the rectum. Biopsies were taken with a cold forceps for histology. A localized area of mucosa in the distal ileum was moderately erythematous, eroded and exsudate covered. Biopsies were taken with a cold forceps for histology. External and internal hemorrhoids were found during retroflexion. The exam was otherwise without abnormality. Random biopsies were taken with a cold forceps in the sigmoid colon, in the descending colon, in the transverse colon and in the ascending colon for histology. Estimated Blood Loss: Estimated blood loss: none. Complications: No immediate complications. Impression: - Erythematous, inflamed, plaque covered and ulcerated mucosa in the rectum. Biopsied. - External and internal hemorrhoids. - The examination was otherwise normal. - Erythematous, eroded and plaque covered mucosa in the entire examined ileum. Biopsied. - Biopsies were taken with a cold forceps for histology in the sigmoid colon, in the descending colon, in the transverse colon and in the ascending colon. Recommendation: - Patient has a contact number available for emergencies. The signs and symptoms of potential delayed complications were discussed with the patient. Return to normal activities tomorrow. Written discharge instructions were provided to the patient. - Resume previous diet. - Continue present medications. - Await pathology results. - Return to GI clinic as previously scheduled. Procedure Code(s): --- Professional --- 78599, Colonoscopy, flexible; with biopsy, single or multiple Diagnosis Code(s): --- Professional --- K62.89, Other specified diseases of anus and rectum K62.6, Ulcer of anus and rectum K63.89, Other specified diseases of intestine K64.8, Other hemorrhoids R10.12, Left upper quadrant pain R10.10, Upper abdominal pain, unspecified CPT copyright 2016 [employer]. All rights reserved. The codes documented in this report are preliminary and upon chute worker review may be revised to meet current compliance requirements. _ Malachi Osborne MD 03/30/2019 9:31:51 AM Note Initiated On: 03/30/2019 8:24 AM Number of Addenda: 0 [facility] [address] [place] [id number] [facility] 03/30/2019 8:24 AM INFORMATION MANAGEMENT SPECIALIST Malachi Osborne MD GI PROCEDURE ORDERAB LES [facility] * HCG URINE QUALITATIVE - POCT (IP) INTERFACED (03/30/2019 8:04 AM INFORMATION MANAGEMENT SPECIALIST) HCG Qual Urine Negative Negative 03/30/2019 8:03 AM INFORMATION MANAGEMENT SPECIALIST [facility] Urine URINE / Unknown 03/30/2019 8 :04 AM INFORMATION MANAGEMENT SPECIALIST 03/30/2019 8:03 AM INFORMATION MANAGEMENT SPECIALIST Malachi Osborne MD LAB - [place] [address], [facility] [phone] * HCG URINE QUAL POCT NOTIFICATION (03/30/2019 7:54 AM INFORMATION MANAGEMENT SPECIALIST) Comment Notification Label Only - See Separate Report 03/30/2019 9:00 AM INFORMATION MANAGEMENT SPECIALIST [facility] Urine URINE / Unknown 03/30/2019 7 :54 AM INFORMATION MANAGEMENT SPECIALIST 03/30/2019 7:54 AM INFORMATION MANAGEMENT SPECIALIST Malachi Osborne MD LAB - URINALYSIS ORD ERABLES Performing Organization Address City/[facility]/[place] [address], [facility] [phone] * MRI ENTEROGRAPHY (02/06/2019 1:40 PM CDT) Anatomical Region Laterality Modality Magnetic Resonan ce, Magnetic Resonance 02/06/2019 1:29 PM CDT Impressions 02/06/2019 4:11 PM CDT IMPRESSION: No small or large bowel pathology identified. Dictated by Bassem Mcneal MD (technical operations vice president). I, Dr. SURY BARLOW M.D. have personally reviewed and interpreted this examination/study. This report was electronically signed by SURY BARLOW M.D. on 02/06/2019 4:11 PM . Narrative 02/06/2019 4:11 PM CDT EXAMINATION: Magnetic resonance imaging (MRI) abdomen and pelvis without and with contrast HISTORY: recurrent ulcers, eval if small bowel ulcers, concern for ibd TECHNIQUE: MRI of the abdomen and pelvis was performed prior to and following the uneventful administration of 14 mL of Multihance intravenous gadolinium contrast according to an enterography protocol. The patient drank 900 mL of Citra Select to distend the small bowel. COMPARISON: No prior study is available for comparison. FINDINGS: The visible lung bases are clear. Distension of the small bowel is satisfactory with intraluminal fluid to the level of the distal bowel. The small and large bowel are normal in caliber without evidence of obstruction. No enhancing bowel lesion is identified. There is no bowel wall thickening or abnormal enhancement. The terminal ileum appears normal. No bowel fistula, stricture, or abscess is seen. There is no evidence of hepatic steatosis. No focal hepatic lesion is seen. The intrahepatic and extrahepatic bile ducts are nondilated. The gallbladder, spleen, pancreas, adrenal glands, and kidneys are normal. No free intraperitoneal fluid is identified. The bladder is distended with fluid and appears normal. Small fibroids are seen in the uterus. Multiple small nabothian cysts are seen in the cervix. Small volume free pelvic fluid is identified. Procedure Note Sury Barlow MD - 02/06/2019 EXAMINATION: Magnetic resonance imaging (MRI) abdomen and pelvis without and with contrast HISTORY: recurrent ulcers, eval if small bowel ulcers, concern for ibd TECHNIQUE: MRI of the abdomen and pelvis was performed prior to and following the uneventful administration of 14 mL of Multihanceintravenous gadolinium contrast according to an enterography protocol. The patient drank 900 mL of Citra Select to distend the small bowel. COMPARISON: No prior study is available for comparison. FINDINGS: The visible lung bases are clear. Distension of the small bowel is satisfactory with intraluminal fluid to the level of the distal bowel. The small and large bowel are normal in caliber without evidence of obstruction. No enhancing bowel lesion is identified. There is no bowel wall thickening or abnormal enhancement.The terminal ileum appears normal. No bowel fistula, stricture, or abscessis seen. There is no evidence of hepatic steatosis. No focal hepatic lesion is seen. The intrahepatic and extrahepatic bile ducts are nondilated. The gallbladder, spleen, pancreas, adrenal glands, and kidneys are normal.No free intraperitoneal fluid is identified. The bladder is distended with fluid and appears normal. Small fibroidsare seen in the uterus. Multiple small nabothian cysts are seen in thecervix. Small volume free pelvic fluid is identified. IMPRESSION: No small or large bowel pathology identified. Dictated by Bassem Mcneal MD (technical operations vice president). I, Dr. SURY BARLOW M.D. have personally reviewed and interpreted this examination/study. This report was electronically signed by SURY BARLOW M.D. on 02/06/2019 4:11 PM . Ramírez Lock MD MR ORDERABL ES * CREATININE BLOOD - POCT (IP) [facility] (02/06/2019 12:14 PM CDT) Creatinine POCT 0.86 0.3 - 1.3 mg/dL [facility] POCT TESTING eGFR POCT 60 60 ml/min [facility] POCT TESTING Blood BLOOD SPECIMEN / Unknown 02/06/2019 12:14 PM CDT Ramírez Lock MD LAB - POINT OF CARE ORDERABLES Performing Organization Address City/[facility]/ZIP Co de Phone Number [facility] POCT TESTING [address] [phone] * IRON + TIBC + FERRITIN (12/15/2018 12:19 PM CDT) Iron 81 40 - 190 mcg/dL [facility] TIBC 407 250 - 450 mcg/dL (calc) [facility] % Saturation 20 16 - 45 % (calc) [facility] Ferritin 18 16 - 154 ng/mL [facility] Comment: Test Performed at: [facility] [address] [place] [address] NISHA BORREGO DO,MPH Blood BLOOD SPECIMEN / Unknown 12/15/2018 12:19 PM CDT 12/15/2018 12:20 PM CDT Ramírez Lock MD LAB - CHEMI STRY ORDERABLES Performing Organization Address [facility]/ZIP Co de Phone Number [facility] [address] [place] [address] * HELICOBACTER PYLORI ANTIGEN FECES (12/01/2018 12:09 PM CDT) Helicobacter pylori Antigen Stool [facility] Comment: HELICOBACTER PYLORI AG, EIA, STOOL MICRO NUMBER: [id number] TEST STATUS: FINAL SPECIMEN SOURCE: STOOL SPECIMEN QUALITY: ADEQUATE RESULT: Not Detected Antimicrobials, proton pump inhibitors, and bismuth preparations inhibit H. pylori and ingestion up to two weeks prior to testing may cause false negative results. If clinically indicated the test should be repeated on a new specimen obtained two weeks after discontinuing treatment. Test Performed at: [facility] [address] [place] [address] SUZETTE DUTTON MD Stool STOOL SPECIMEN / Unknown 12/01/2018 12:09 PM CDT 12/01/2018 12:10 PM CDT Ramírez Lock MD LAB - MICRO BIOLOGY ORDERABLES Performing Organization Address [facility]/ZIP Co de Phone Number [facility] [address] [place] [address] * GASTRIN (11/10/2018 9:52 AM CDT) Only the most recent of2 resultswithin the time period is included. Gastrin 14 0 - 115 pg/mL 11/12/2018 10:06 PM CDT [facility] ([facility]) Comment: Siemens Immulite 2000 Immunochemiluminometric assay (ICMA) Values obtained with different assay methods or kits cannot be used interchangeably. Results cannot be interpreted as absolute evidence of the presence or absence of malignant disease. Blood BLOOD SPECIMEN / Unknown Venipuncture / Unknown 11/10/2018 9:52 AM CDT 11/10/2018 10:01 AM CDT Narrative [facility] ([facility]) - 11/12/2018 10:06 PM CDT Performed at: [address] [place] [address] [id number] Air Traffic Controller: Rigo Dugan MD, Phone: [phone] Temi Guthrie MD LAB - CHEMISTRY STEPHANIE SHARMA Performing Organization Address City/[facility]/ZIP Co de Phone Number [facility] ([facility]) [address] [id number] * EGD (11/10/2018 8:57 AM CDT) Report Endoscopy POC Endoscopy Department Report __ _ Patient Name: Luisa Luke Procedure Date: 11/10/2018 8:57 AM Date of : 1990 Classification: Outpatient Gender: Female Ethnicity: Not or Race: Black or __ _ Providers: Temi Guthrie MD, Ahsan Guthrie (Fellow), Ramírez Lock (Fellow) Referring MD: El Daugherty (Referring MD) Procedure: Upper GI endoscopy Indications: Peptic ulcer Medications: Monitored Anesthesia Care Comorbidities History of H. Pylori PUD Description of Procedure: Pre-Anesthesia Assessment: - Prior to the procedure, a History and Physical was performed, and patient medications and allergies were reviewed. The patient is competent. The risks and benefits of the procedure and the sedation options and risks were discussed with the patient. All questions were answered and informed consent was obtained. Patient identification and proposed procedure were verified by the physician and the nurse in the pre-procedure area. Mental Status Examination: normal. Airway Examination: normal oropharyngeal airway and neck mobility. Respiratory Examination: clear to auscultation. CV Examination: normal. Prophylactic Antibiotics: The patient does not require prophylactic antibiotics. Prior Anticoagulants: The patient has taken no previous anticoagulant or antiplatelet agents. ASA Grade Assessment: I - A normal, healthy patient. After reviewing the risks and benefits, the patient was deemed in satisfactory condition to undergo the procedure. The anesthesia plan was to use monitored anesthesia care (MAC). Immediately prior to administration of medications, the patient was re-assessed for adequacy to receive sedatives. The heart rate, respiratory rate, oxygen saturations, blood pressure, adequacy of pulmonary ventilation, and response to care were monitored throughout the procedure. The physical status of the patient was re-assessed after the procedure. After obtaining informed consent, the endoscope was passed under direct vision. Throughout the procedure, the patient's blood pressure, pulse, and oxygen saturations were monitored continuously. The Endoscope was introduced through the mouth, and advanced to the second part of duodenum. The upper GI endoscopy was accomplished without difficulty. The patient tolerated the procedure well. Findings: Esophagogastric landmarks were identified: the Z-line was found at 39 cm, the gastroesophageal junction was found at 39 cm and the site of hiatal narrowing was found at 39 cm from the incisors. The exam of the esophagus was normal. Diffuse mild inflammation characterized by erythema was found in the gastric antrum. Many non-bleeding cratered gastric ulcers with pigmented material were found in the gastric antrum. The largest lesion was 18 mm in largest dimension. Biopsies were taken with a cold forceps for histology of peripheral margins of several ulcers as well as center of ulcers. Estimated blood loss was minimal. The examined duodenum was normal. Estimated Blood Loss: Estimated blood loss was minimal. Complications: No immediate complications. Impression: - Esophagogastric landmarks identified. - Gastropathy. - Non-bleeding gastric ulcers with pigmented material. Biopsied. - Normal examined duodenum. Recommendation: - Resume previous diet. - Continue present medications. - Await pathology results. - Check gastrin level today. - Return to GI clinic as previously scheduled. - Discharge patient to home. - Patient has a contact number available for emergencies. The signs and symptoms of potential delayed complications were discussed with the patient. Return to normal activities tomorrow. Written discharge instructions were provided to the patient. Attending Participation: I was present and participated during the entire procedure, including non-fiore portions. Procedure Code(s): --- Professional --- 75322, Esophagogastroduode noscopy, flexible, transoral; with biopsy, single or multiple Diagnosis Code(s): --- Professional --- K29.70, Gastritis, unspecified, without bleeding K25.9, Gastric ulcer, unspecified as acute or chronic, without hemorrhage or perforation K27.9, Peptic ulcer, site unspecified, unspecified as acute or chronic, without hemorrhage or perforation CPT copyright 2016 [employer]. All rights reserved. The codes documented in this report are preliminary and upon chute worker review may be revised to meet current compliance requirements. Temi Guthrie MD 11/10/2018 10:21:20 AM This report has been signed electronically. Note Initiated On: 11/10/2018 8:57 AM Number of Addenda: 0 [facility] [address] [place] [address] [facility] 11/10/2018 8:57 AM CDT Temi Guthrie MD GI PROCEDURE ORDERAB LES [facility] * QUANTIFERON-TB GOLD PLUS 1-TUBE (10/11/2018 12:16 PM CDT) Pathologist [facility] QuantiFERON TB Gold Plus NEGATIVE NEGATIVE [facility] Comment: Negative test result. M. tuberculosis complex infection unlikely. NIL 0.09 IU/mL [facility] MITOGEN MINUS NIL RESULT 8.93 IU/mL [facility] TB1-NIL <0.00 IU/mL [facility] TB2-NIL <0.00 IU/mL [facility] Comment: The Nil tube value reflects the background interferon gamma immune response of the patient's blood sample. This value has been subtracted from the patient's displayed TB and Mitogen results. Lower than expected results with the Mitogen tube prevent false-negative Quantiferon readings by detecting a patient with a potential immune suppressive condition and/or suboptimal pre-analytical specimen handling. The TB1 Antigen tube is coated with the M. tuberculosis-specific antigens designed to elicit responses from TB antigen primed CD4+ helper T-lymphocytes. The TB2 Antigen tube is coated with the M. tuberculosis-specific antigens designed to elicit responses from TB antigen primed CD4+ helper and CD8+ cytotoxic T-lymphocytes. For additional information, please refer to https://education.[employer]/faq/GJT102 (This link is being provided for informational/ educational purposes only.) REPORT COMMENT: FASTING:NO Test Performed at: [facility] [address] [place] [address] NISHA BORREGO DO,MPH 10/11/2018 12:1 6 PM CDT 10/11/2018 12:16 PM CDT Steve Loo MD LAB - CHEMISTRY STEPHANIE SHARMA [facility] [address] [place] [address] * EGD (08/04/2018 1:07 PM CDT) Report Endoscopy POC Endoscopy Department Report _ Patient Name: Luisa Luke Procedure Date: 08/04/2018 1:07 PM Date of : 1990 Classification: Outpatient Gender: Female _ Providers: Shayan Freedman MD Referring MD: El Daugherty (Referring MD), Ramírez Lock (Referring MD) Procedure: Upper GI endoscopy Indications: Generalized abdominal pain, Follow-up of gastric ulcerations; + hx of H. pylori Medications: Monitored Anesthesia Care Description of Procedure: Pre-Anesthesia Assessment: - Prior to the procedure, a History and Physical was performed, and patient medications and allergies were reviewed. The patient's tolerance of previous anesthesia was also reviewed. The risks and benefits of the procedure and the sedation options and risks were discussed with the patient. All questions were answered, and informed consent was obtained. Prior Anticoagulants: The patient has taken no previous anticoagulant or antiplatelet agents. ASA Grade Assessment: II - A patient with mild systemic disease. After reviewing the risks and benefits, the patient was deemed in satisfactory condition to undergo the procedure. After obtaining informed consent, the endoscope was passed under direct vision. Throughout the procedure, the patient's blood pressure, pulse, and oxygen saturations were monitored continuously. The GIF-HQ190 was introduced through the mouth, and advanced to the second part of duodenum. The upper GI endoscopy was accomplished without difficulty. The patient tolerated the procedure well. Findings: The esophagus was normal. Few non-bleeding cratered gastric ulcers with no stigmata of bleeding were found in the gastric antrum. The largest lesion was 20 mm in largest dimension. Biopsies were taken with a cold forceps for Helicobacter pylori testing from antrum, incisura, and body to ongoing infection with H. pylori. The cardia and gastric fundus were normal on retroflexion. The examined duodenum was normal. Estimated Blood Loss: Estimated blood loss was minimal. Complications: No immediate complications. Estimated blood loss: Minimal. Impression: 1) Normal esophagus. 2) Non-bleeding gastric ulcers with no stigmata of bleeding with largest antral ulcer measuring 20 mm in size. Biopsied to r/o ongoing H. pylori infection. 3) Normal examined duodenum. Recommendation: - Discharge patient to home (ambulatory). - The findings and recommendations were discussed with the referring physician, Dr. Lokc. - The findings and recommendations were discussed with the patient. - Await pathology results. - Use Protonix (pantoprazole) 40 mg PO BID daily. - Repeat EGD in 3 months. - Ordered fasting serum gastrin level. Attending Participation: I personally performed the entire procedure. Procedure Code(s): --- Professional --- 20809, Esophagogastroduod enoscopy, flexible, transoral; with biopsy, single or multiple Diagnosis Code(s): --- Professional --- K25.9, Gastric ulcer, unspecified as acute or chronic, without hemorrhage or perforation R10.84, Generalized abdominal pain K27.3, Acute peptic ulcer, site unspecified, without hemorrhage or perforation CPT copyright 2016 [employer]. All rights reserved. The codes documented in this report are preliminary and upon chute worker review may be revised to meet current compliance requirements. Shayan Freedman MD 08/04/2018 1:55:18 PM This report has been signed electronically. Note Initiated On: 08/04/2018 1:07 PM Number of Addenda: 0 [facility] [address] [facility] [place] [address] [facility] 08/04/2018 1:07 PM CDT Shayan Freedman MD GI PROCEDURE ORDERAB LES [facility] * HCG URINE QUALITATIVE - POINT OF CARE (08/04/2018 12:53 PM CDT) Only the most recent of3 resultswithin the time period is included. HCG Qual Urine Negative Negative [facility] P OCT TESTING QC Verified Yes Yes [facility] POCT TESTING Urine URINE / Unknown 08/04/2018 1 2:53 PM CDT Nellie Jason MD LAB - POINT OF TX RE ORDERABLES [facility] POCT TESTING [address] [phone] * EGD (04/28/2018 2:25 PM INFORMATION MANAGEMENT SPECIALIST) Report Endoscopy POC Endoscopy Department Report __ _ Patient Name: Luisa Luke Procedure Date: 04/28/2018 2:25 PM Date of : 1990 Classification: Outpatient Gender: Female __ _ Providers: Malachi Osborne MD, Tressa Yung (Fellow) Referring MD: Ramírez Lock (Referring ), El Daugherty (Referring MD) Procedure: Upper GI endoscopy Indications: Epigastric abdominal pain Medications: Monitored Anesthesia Care Comorbidities Chronic NSAID use Description of Procedure: Pre-Anesthesia Assessment: - Prior to the procedure, a History and Physical was performed, and patient medications and allergies were reviewed. The patient's tolerance of previous anesthesia was also reviewed. The risks and benefits of the procedure and the sedation options and risks were discussed with the patient. All questions were answered, and informed consent was obtained. Prior Anticoagulants: The patient has taken no previous anticoagulant or antiplatelet agents. ASA Grade Assessment: II - A patient with mild systemic disease. After reviewing the risks and benefits, the patient was deemed in satisfactory condition to undergo the procedure. After obtaining informed consent, the endoscope was passed under direct vision. Throughout the procedure, the patient's blood pressure, pulse, and oxygen saturations were monitored continuously. The GIF-HQ190 was introduced through the mouth, and advanced to the second part of duodenum. The upper GI endoscopy was accomplished without difficulty. The patient tolerated the procedure well. Findings: The examined esophagus was normal. Esophagogastric landmarks were identified: the Z-line was found at 35 cm and the gastroesophageal junction was found at 35 cm from the incisors. Multiple non-bleeding cratered gastric ulcers with no stigmata of bleeding were found in the gastric antrum. The largest lesion was 12 mm in largest dimension. Biopsies were taken with a cold forceps for histology. The cardia and gastric fundus were normal on retroflexion. A benign-appearing, intrinsic moderate stenosis was found at the pylorus resulting in partial fixed gastric outlet obstruction likely 2/2 an active ulcer with scarring from. This was traversed with mild resistance. Few non-bleeding cratered very small duodenal ulcers with no stigmata of bleeding were found in the duodenal bulb. The largest lesion was 5 mm in largest dimension. The second portion of the duodenum was normal. Estimated Blood Loss: Estimated blood loss was minimal. Complications: No immediate complications. Impression: - Normal esophagus. - Non-bleeding gastric ulcers in the antrum and pylorus in partial mild fixed gastric outlet obstruction. Biopsied. - Multiple non-bleeding duodenal ulcers with no stigmata of bleeding. - Normal second portion of the duodenum. Recommendation: - Patient has a contact number available for emergencies. The signs and symptoms of potential delayed complications were discussed with the patient. Return to normal activities tomorrow. Written discharge instructions were provided to the patient. - No aspirin, ibuprofen, naproxen, or other non-steroidal anti-inflammatory drugs. - Await pathology results. - Use a proton pump inhibitor PO BID, 30 minutes before a meal. - Repeat EGD in 2 months. Procedure Code(s): --- Professional --- 90260, Esophagogastroduode noscopy, flexible, transoral; with biopsy, single or multiple Diagnosis Code(s): --- Professional --- K25.9, Gastric ulcer, unspecified as acute or chronic, without hemorrhage or perforation K31.1, Adult hypertrophic pyloric stenosis K26.9, Duodenal ulcer, unspecified as acute or chronic, without hemorrhage or perforation R10.13, Epigastric pain CPT copyright 2016 [employer]. All rights reserved. The codes documented in this report are preliminary and upon chute worker review may be revised to meet current compliance requirements. Malachi Osborne MD 04/28/2018 3:09:35 PM Note Initiated On: 04/28/2018 2:25 PM Number of Addenda: 0 [facility] [address] [place] [address] [facility] 04/28/2018 2:25 PM INFORMATION MANAGEMENT SPECIALIST Tresas Yung MD GI PROCEDURE ORDERAB LES [facility]ATION * NM GASTRIC EMPTYING (03/03/2018 1:16 PM INFORMATION MANAGEMENT SPECIALIST) Anatomical Region Laterality Modality Abdomen Nuclear Medicine 03/03/2018 11:0 2 AM INFORMATION MANAGEMENT SPECIALIST Impressions 03/03/2018 3:56 PM INFORMATION MANAGEMENT SPECIALIST Impression: Borderline normal gastric emptying based on 10% retention at 4 hours after ingestion of meal. This report was approved by Mervin Suero on 03/03/2018 1:52 PM . IDr. ROBIN D.O. have personally reviewed and interpreted this examination/study. This report was electronically signed by ROBIN CRANDALL D.O. on 03/03/2018 3:56 PM . Narrative 03/03/2018 3:56 PM INFORMATION MANAGEMENT SPECIALIST Solid Gastric Emptying Study Agent: 0.498 mCi of Tc- 99m-sulfur colloid mixed in scrambled egg. History: 27-year-old female with no significant PMH presents with evaluation of chronic abdominal pain and nausea.; Patient's height 168 cm; weight 153 lb. Technique: The examination was performed after the ingestion of a standardized meal (scrambled egg substitute (120 g Egg Beater, 60 kcal, equivalent to the volume of 2 large eggs), two slices of bread (120 kcal), strawberry jam (30 g, 75 kcal), and water (120 ml).The meal has a caloric value of 255 kcal: 72% carbohydrate,24% protein, 2% fat and 2% fiber. The meal is labeled with 0.5 mCi of Mm-25b-vjaqgyw sulfur colloid. Findings: No prior study is available for comparison at the time of this dictation. After ingestion of solid meal, sequential images were obtained up to 4 hours. Images were obtained immediately, 1 hour, 2 hours and 4 hours after ingestion. The percent retention in the stomach is as follows: Immediate - 100% 1 hour: 81% (Normal range: 37 - 90%) 2 hour: 45% (Normal range: 30 - 60%) 4 hour: 10% (Normal range: 0 - 10%) T1/2: 111 minutes (Upper limit: 130 minutes) Severity of gastroparesis is as follows: Grade 1 (mild): 11-20% Grade 2 (moderate): 21-35% Grade 3 (severe): 36-50% Grade 4 (very severe): >50% Procedure Note Robin Crandall DO - 03/03/2018 Solid Gastric Emptying Study Agent: 0.498 mCi of Tc- 99m-sulfur colloid mixed in scrambled egg. History: 27-year-old female with no significant PMH presents with evaluation of chronic abdominal pain and nausea.; Patient's height 168cm; weight 153 lb. Technique: The examination was performed after the ingestion of a standardized meal (scrambled egg substitute (120 g Egg Beater, 60 kcal, equivalent to the volume of 2 large eggs), two slices of bread (120kcal), strawberry jam (30 g, 75 kcal), and water (120 ml).The meal has acaloric value of 255 kcal: 72% carbohydrate,24% protein, 2% fat and 2% fiber.The meal is labeled with 0.5 mCi of Qr-24a-nliyrvf sulfur colloid. Findings: No prior study is available for comparison at the time of this dictation. After ingestion of solid meal, sequential images were obtained up to 4 hours. Images were obtained immediately, 1 hour, 2 hours and 4 hoursafter ingestion. The percent retention in the stomach is as follows: Immediate - 100% 1 hour: 81% (Normal range: 37 - 90%) 2 hour: 45% (Normal range: 30 - 60%) 4 hour: 10% (Normal range: 0 - 10%) T1/2: 111 minutes (Upper limit: 130 minutes) Severity of gastroparesis is as follows: Grade 1 (mild): 11-20% Grade 2 (moderate): 21-35% Grade 3 (severe): 36-50% Grade 4 (very severe): >50% Impression: Borderline normal gastric emptying based on 10% retention at 4 hoursafter ingestion of meal. This report was approved by Mervin Suero on 03/03/2018 1:52 PM . I, Dr. ROBIN CRANDALL D.O. have personally reviewed and interpreted this examination/study. This report was electronically signed by ROBIN CRANDALL D.O. on03/03/2018 3:56 PM . Ramírez Lock MD NM ORDERABL ES * (ABNORMAL) CULTURE URINE (07/26/2017 4:36 PM CDT) Urine Culture Routine Final report(A) [facility] ACCOUNT BILL Result 1 Escherichia coli(A) [facility] ACCOUNT BILL Comment:Greater than 100,000 colony forming units per mL Antimicrobial Susceptibility [facility] ACCOUNT BILL Comment: S = Susceptible; I = Intermediate; R = Resistant P = Positive; N = Negative MICS are expressed in micrograms per mL Antibiotic RSLT#1 RSLT#2 RSLT#3 RSLT#4 Amoxicillin/Clavulanic Acid I Ampicillin R Cefepime S Ceftriaxone S Cefuroxime S Cephalothin I Ciprofloxacin S Ertapenem S Gentamicin S Imipenem S Levofloxacin S Nitrofurantoin S Piperacillin R Tetracycline S Tobramycin S Trimethoprim/Sulfa S Urine URINE SPECIMEN OBTAINED BY CLEAN CATCH PROCEDURE / Unknown 07/26/2017 4:36 PM CDT 07/26/2017 Narrative Resulting Agency Comment [facility] [address] [id number] [facility] - MICROBIO LOGY ORDERABLES [facility] ACCOUNT [place] [address] [place] [address] * (ABNORMAL) URINALYSIS AUTO - POINT OF CARE (AMB) [facility] (07/26/2017) Clarity UA POCT cloudy Color UA POCT yellow Leukocyte UA trace Negative Nitrite UA POCT negative Negative Urobilinogen UA 0.2 0.1 - 1.0 Protein UA POCT trace Negative pH UA 6.5 5.0 - 8.0 pH units Blood UA 50 Negative Specific Solomon UA POCT 1.025 1.002 - 1.030 Ketone UA negative Negative Bilirubin UA POCT negative Negative Glucose UA negative Negative Expiration Date 12/02/2018 Lot # [id number] Verified Yes Yes Urine URINE / Unknown 07/26/2017 Raina Redmond APRN-[employer] - POINT OF CARE ORDERABLES Care Teams Financial Reporting Analyst Relationship Specialty Start Date End Date El Daugherty MD [address] [place] [id number] PCP - General 02/16/19
--- OUTSIDE RECORDS SUMMARY | 2024-07-04 19:09 | XMS_ITS | Data Portability ---
Author Organization [facility] Address [address] [place] [address] Care Team Providers Care Bacon Stringer Name Role Phone ROSALIND HAYNES Primary Care Provider [phone] KRISTY PATEL Criminal Justice Faculty Assessment No assessment recorded. Plan of Treatment Reminders Order Date Submit Date Provider Last Modified By Organization Details Last Modified Time Details Appointments None recorded . Lab urinalys is, dipstick 2022 023 [email or web address] In-Office Order, Internal Use Only DO Not Attach Compendium DO Not Attach Compendium, Do Not Delete/merge, [id number] 3 10:15:51 vaginal pathogen s panel, KYAW+prob e, vaginal fluid 2022 023 S[facility], [address], [address], [place], [address], 3 08:27:59 pap, IG + reflex HPV 2022 023 SATHISH [facility], [address], [place], [address], 3 20:09:05 vitamin D, 25-hydro xy, total, serum 2021 022 S[facility], [address], [address], [place], [address], 2 07:13:17 TSH, ultra-se nsitive, serum 2020 [facility], [address] [facility] [address], [address], [place], [address], 08:15:54 CMP, serum or plasma 2020 [facility], [address] [facility] [address], [address], [place], [address], 08:15:52 CBC w/ auto diff 2020 [facility], [address] [facility] [address] [address], [address], [place], [address], 08:15:51 HbA1c (hemoglo bin A1c), blood 2020 [facility], [facility], [address], [place], [address], 08:15:53 vitamin D, 25-hydro xy, total, serum 2020 [facility], [address], [address], [place], [address], 08:15:54 iron + total iron-bin ding capacity (TIBC), serum 2020 [facility], [address], [address], [place], [address], 08:15:52 ferritin , serum or plasma 2020 [facility], [address], [address], [place], [address], 08:15:55 Referral gynecolo gi surgery referral 2022 023 [email or web address] Akhil Romo MD, [address], [address], [place], [address], 4 18:02:50 physical therapis t referral - Low back pain and stiffnes s, intermit tent lumbar radiculo alisia 2020 021 [facility], [address] [place], [address], 2 06:06:44 Procedures None recorded . Surgeries None recorded . Imaging US, pelvis, transabd ominal + transvag inal [address] [facility] ([facility] Sched[facility]), [address] [place], [address], 4 12:00:17 XR, lumbosac ral spine, 2 or 3 view 2020 021 [facility] ([facility] Scheduling), [address] [place], [address], 2 06:30:51 Medication Orders metronid azole 0.75 % (37.5 mg/5 gram) vaginal gel 2022 023 [id number], [address] [place] [address], [address], 3 09:35:36 cycloben zaprine 10 mg tablet 2021 022 [email or web address] [address] [place] [address] [place], [address], 3 11:00:18 cycloben zaprine 10 mg tablet 2020 021 [email or web address] In [facility], [facility] [place], [address], 3 11:00:18 Medrol (Kash) 4 mg tablets in a dose pack 2020 021 [email or web address] In [facility], [address] [place], [address], 08:58:55 Patient TargetsNo targets recorded. Patient Instructions Encounter Date Encounter Id Patient Instructions Last Modified By Organization Details Last Modified Time 09/30/2022 [id number] A healthy lifestyle: care instructions [email or web address] Not available 09/30/2022 12:37:51 Well Visit, Ages 18 to 65: Care Instructions [email or web address] Not available 09/30/2022 11:06:19 01/22/2023 [id number] Caridad JANE Discussed with LIN [email or web address] Not available 01/22/2023 15:48:09 Reason for Referral Physical Therapist Referral for Low back pain Low back pain and stiffness, intermittent lumbar radiculopathy Referring Physician: Jasmina Cuevas Flag Football Coach, Encounter Date: 03/19/2021 Gynecologic Surgery Referral for Sterilization requested Referring Physician: Kristy Patel Flag Football Coach, Encounter Date: 09/30/2022 Results Created Date Observation Date Name Description Value Unit Range Abnormal Flag Note LastModifiedBy Organization Detail LastModifiedTime 03/19/2003/20/2021 CBC WITH DIFFE RENTI AL/PL ATELE T WBC 9.7 x10e3 /uL 3.4-10 .8 Not Available [facility] ([facility]) [address] [facility], [place], [address], 2021 08:15:51 03/19/2003/20/2021 CBC WITH DIFFE RENTI AL/PL ATELE T RBC 4.64 x10e6 /uL 3.77-5 .28 Not Available [facility] ([facility]) [address] [facility], [place], [address], 2021 08:15:51 03/19/20 21 2021 CBC WITH DIFFE RENTI AL/PL ATELE T hemoglobin 12.7 g/dL 11.1-1 5.9 Not Available [facility] ([facility]) [address] [place], [address], 2021 08:15:51 03/19/20 21 2021 CBC WITH DIFFE RENTI AL/PL ATELE T hematocrit 40.1 % 34.0-4 6.6 Not Available [facility] ([facility]) [address] [place], [address], 2021 08:15:51 03/19/20 21 2021 CBC WITH DIFFE RENTI AL/PL ATELE T MCV 86 fL 79-97 Not Available [facility] ([facility]) [address] [place], [address], 2021 08:15:51 03/19/20 21 2021 CBC WITH DIFFE RENTI AL/PL ATELE T MCH 27.4 pg 26.6-3 3.0 Not Available [facility] ([facility]) [address] [place], [address], 2021 08:15:51 03/19/20 21 2021 CBC WITH DIFFE RENTI AL/PL ATELE T MCHC 31.7 g/dL 31.5-3 5.7 Not Available [facility] ([facility]) [address] [place], [address], 2021 08:15:51 03/19/20 21 2021 CBC WITH DIFFE RENTI AL/PL ATELE T RDW 12.1 % 11.7-1 5.4 Not Available [facility] ([facility]) [address] [place], [address], 2021 08:15:51 03/19/20 21 2021 CBC WITH DIFFE RENTI AL/PL ATELE T platelets 350 x10e3 /uL 150-45 0 Not Available [facility] ([facility]) [address] [facility], [place], [address], 2021 08:15:51 03/19/20 21 2021 CBC WITH DIFFE RENTI AL/PL ATELE T neutrophils 46 % not estab. Not Available [facility] ([facility]) [address] [facility], [place], [address], 2021 08:15:51 03/19/20 21 2021 CBC WITH DIFFE RENTI AL/PL ATELE T lymphs 43 % not estab. Not Available [facility] ([facility]) [address] [facility] [facility], [place], [address], 2021 08:15:51 03/19/20 21 2021 CBC WITH DIFFE RENTI AL/PL ATELE T monocytes 9 % not estab. Not Available [facility] ([facility]) [address], [place], [address], 2021 08:15:51 03/19/20 21 2021 CBC WITH DIFFE RENTI AL/PL ATELE T eos 1 % not estab. Not Available [facility] ([facility]) [address] [facility], [place], [address], 2021 08:15:51 03/19/20 21 2021 CBC WITH DIFFE RENTI AL/PL ATELE T basos 1 % not estab. Not Available [facility] ([facility]) [address] [facility], [place], [address], 2021 08:15:51 03/19/20 21 2021 CBC WITH DIFFE RENTI AL/PL ATELE T immature cells ABLE BODIED SEAMAN Not Available [facility] ([facility]) [address] [place], [address], 2021 08:15:51 03/19/20 21 2021 CBC WITH DIFFE RENTI AL/PL ATELE T neutrophils (absolute) 4.5 x10e3 /uL 1.4-7. 0 Not Available [facility] ([facility]) [address] [place], [address], 2021 08:15:51 03/19/20 21 2021 CBC WITH DIFFE RENTI AL/PL ATELE T lymphs (absolute) 4.1 x10e3 /uL 0.7-3. 1 above high normal Not Available [facility] ([facility]) [address] [place], [address], 2021 08:15:51 03/19/20 21 2021 CBC WITH DIFFE RENTI AL/PL ATELE T monocytes(ab solute) 0.9 x10e3 /uL 0.1-0. 9 Not Available [facility] ([facility]) [address] [place], [address], 2021 08:15:51 03/19/20 21 2021 CBC WITH DIFFE RENTI AL/PL ATELE T eos (absolute) 0.1 x10e3 /uL 0.0-0. 4 Not Available [facility] ([facility]) [address] [place], [address], 2021 08:15:51 03/19/20 21 2021 CBC WITH DIFFE RENTI AL/PL ATELE T baso (absolute) 0.1 x10e3 /uL 0.0-0. 2 Not Available [facility] ([facility]) [address] [place], [address], 2021 08:15:51 03/19/20 21 2021 CBC WITH DIFFE RENTI AL/PL ATELE T immature granulocytes 0 % not estab. Not Available [facility] ([facility]) [address] [facility], [place], [address], 2021 08:15:51 03/19/20 21 2021 CBC WITH DIFFE RENTI AL/PL ATELE T immature grans (abs) 0.0 x10e3 /uL 0.0-0. 1 Not Available [facility] ([facility]) [address] [facility], [place], [address], 2021 08:15:51 03/19/20 21 2021 CBC WITH DIFFE RENTI AL/PL ATELE T NRBC ABLE BODIED SEAMAN Not Available [facility] ([facility]) [address] [facility], [place], [address], 2021 08:15:51 03/19/20 21 2021 CBC WITH DIFFE RENTI AL/PL ATELE T hematology comments: ABLE BODIED SEAMAN Not Available [facility] ([facility]) [address] [facility], [place], [address], 2021 08:15:51 03/19/20 21 2021 COMP. METAB OLIC PANEL (14) glucose 82 mg/dL 65-99 Not Available [facility] ([facility]) [address], [place], [address], 2021 08:15:52 03/19/20 21 2021 COMP. METAB OLIC PANEL (14) BUN 8 mg/dL 6-20 Not Available [facility] ([facility]) [address] [facility] [facility], [place], [address], 2021 08:15:52 03/19/20 21 2021 COMP. METAB OLIC PANEL (14) creatinine 0.61 mg/dL 0.57-1 .00 Not Available [facility] ([facility]) [address] [facility] [facility], [place], [address], 2021 08:15:52 03/19/20 21 2021 COMP. METAB OLIC PANEL (14) eGFR if nonafricn AM 122 mL/mi n/1.7 3 >59 Not Available [facility] ([facility]) [address] [facility] [facility], [place], [address], 2021 08:15:52 03/19/20 21 2021 COMP. METAB OLIC PANEL (14) eGFR if africn AM 141 mL/mi n/1.7 3 >59 In accor dance with recom menda tions from the NKF-A SN Task force , [facility] is in the proce ss of updat ing its eGFR calcu latio n to the 2020 CKD-E PI creat inine equat ion that estim ates kidne y funct ion witho ut a race varia ble. Not Available [facility] ([facility]) [address] [facility], [place], [address], 2021 08:15:52 03/19/20 21 2021 COMP. METAB OLIC PANEL (14) BUN/creatini ne ratio 13 9-23 Not Available [facility] ([facility]) [address] [place], [address], 2021 08:15:52 03/19/20 21 2021 COMP. METAB OLIC PANEL (14) sodium 138 mmol/ L 134-14 4 Not Available [facility] ([facility]) [address] [facility] [place], [address], 2021 08:15:52 03/19/20 21 2021 COMP. METAB OLIC PANEL (14) potassium 4.6 mmol/ L 3.5-5. 2 Not Available [facility] ([facility]) [address] [place], [address], 2021 08:15:52 03/19/20 21 2021 COMP. METAB OLIC PANEL (14) chloride 104 mmol/ L 96-106 Not Available [facility] ([facility]) [address] [facility] [facility], [place], [address], 2021 08:15:52 03/19/20 21 2021 COMP. METAB OLIC PANEL (14) carbon dioxide, total 22 mmol/ L 20-29 Not Available [facility] ([facility]) [address] [facility] [facility], [place], [address], 2021 08:15:52 03/19/20 21 2021 COMP. METAB OLIC PANEL (14) calcium 9.0 mg/dL 8.7-10 .2 Not Available [facility] ([facility]) [address] [facility] [facility], [place], [address], 2021 08:15:52 03/19/20 21 2021 COMP. METAB OLIC PANEL (14) protein, total 7.2 g/dL 6.0-8. 5 Not Available [facility] ([facility]) [address] [facility], [place], [address], 2021 08:15:52 03/19/20 21 2021 COMP. METAB OLIC PANEL (14) albumin 4.2 g/dL 3.9-5. 0 Not Available [facility] ([facility]) [address] [facility], [place], [address], 2021 08:15:52 03/19/20 21 2021 COMP. METAB OLIC PANEL (14) globulin, total 3.0 g/dL 1.5-4. 5 Not Available [facility] ([facility]) [address] [facility] [place], [address], 2021 08:15:52 03/19/20 21 2021 COMP. METAB OLIC PANEL (14) A/G ratio 1.4 1.2-2. 2 Not Available [facility] ([facility]) [address] [facility], [place], [address], 2021 08:15:52 03/19/20 21 2021 COMP. METAB OLIC PANEL (14) bilirubin, total <0.2 mg/dL 0.0-1. 2 Not Available [facility] ([facility]) [address] [facility], [place], [address], 2021 08:15:52 03/19/20 21 2021 COMP. METAB OLIC PANEL (14) alkaline phosphatase 131 IU/L 44-121 above high normal Ple ase note refer ence inter shania julian e Not Available [facility] ([facility]) [address] [facility] [facility], [place], [address], 2021 08:15:52 03/19/20 21 2021 COMP. METAB OLIC PANEL (14) AST (SGOT) 16 IU/L 0-40 Not Available [facility] ([facility]) [address] [place], [address], 2021 08:15:52 03/19/20 21 2021 COMP. METAB OLIC PANEL (14) ALT (SGPT) 25 IU/L 0-32 Not Available [facility] ([facility]) [address] [place], [address], 2021 08:15:52 03/19/20 21 2021 IRON AND TIBC iron bind.cap.(TI BC) 340 ug/dL 250-45 0 Not Available [facility] ([facility]) [address] [place], [address], 2021 08:15:52 03/19/20 21 2021 IRON AND TIBC UIBC 301 ug/dL 131-42 5 Not Available [facility] ([facility]) [address] [place], [address], 2021 08:15:52 03/19/20 21 2021 IRON AND TIBC iron 39 ug/dL 27-159 Not Available [facility] ([facility]) [address] [place], [address], 2021 08:15:52 03/19/20 21 2021 IRON AND TIBC iron saturation 11 % 15-55 below low normal Not Available [facility] ([facility]) [address] [place], [address], 2021 08:15:52 03/19/2003/20/2021 HEMOG LOBIN A1C hemoglobin A1C 5.1 % 4.8-5. 6 Predi abete s: 5.7 - 6.4 Diabe brian: >6.4 Glyce kristine contr ol for adult s with diabe brian: <7.0 Not Available [facility] ([facility]) [address] [place], [address], 2021 08:15:53 03/19/2003/20/2021 VITAM IN D, 25-HY DROXY vitamin D, 25-hydroxy 14.3 NG/mL 30.0-1 00.0 below low normal Vitam in D defic iency has been defin ed by the Insti tute of Medic ine and an Endoc rine Socie ty pract ice guide line as a level of serum 25-OH vitam in D less than 20 ng/mL (1,2) . The Endoc rine Socie ty went on to furth er defin e vitam in D insuf ficie ncy as a level betwe en 21 and 29 ng/mL (2). 1. IOM (Inst itute of Medic ine). 2010. Dieta ry refer ence intak es for calci um and D. Shira russell [place]: The Natio nal [employer] . 2. Heather SAGE, Morena TRAYLOR, Angeline rangel-F ney VIDAL, et al. Evalu ation , treat ment, and preve ntion of vitam in D defic iency : an Endoc rine Socie ty clini felecia pract ice guide line. [facility]. 2010; 96(7) :1911 -30. Not Available [facility] ([facility]) [address] [facility], [place], [address], 2021 08:15:54 03/19/20 21 2021 TSH RFX ON ABNOR MAL TO FREE T4 TSH 0.478 uIU/m L 0.450- 4.500 Not Available [facility] ([facility]) [address] [place], [address], 2021 08:15:54 03/19/20 21 2021 DAIVD TIN ferritin 47 NG/mL 15-150 Not Available [facility] ([facility]) [address] [place], [address], 2021 08:15:55 05/21/19 22 05/22/2021 VITAM IN D, 25-HY DROXY vitamin D, 25-hydroxy 10.6 NG/mL 30.0-1 00.0 below low normal Vitam in D defic iency has been defin ed by the Insti tute of Medic ine and an Endoc rine Socie ty pract ice guide line as a level of serum 25-OH vitam in D less than 20 ng/mL (1,2) . The Endoc rine Socie ty went on to furth er defin e vitam in D insuf ficie ncy as a level betwe en 21 and 29 ng/mL (2). 1. IOM (Inst itute of Medic ine). 2009. Dieta ry refer ence intak es for calci um and D. Shira russell [place]: The Natio nal [facility] Press . 2. Heather SAGE, Morena TRAYLOR, Angeline off-F errar i VIDAL, et al. Evalu ation , treat ment, and preve ntion of vitam in D defic iency : an Endoc rine Socie ty clini felecia pract ice guide line. [employer]. 2010; 96(7) :1911 -30. Not Available [facility] ([facility]) [address] [facility], [place], [address], 05/22/2021 07:13:17 10/01/19 23 09/30/2022 IGP,A PTIMA HPV,A GE GDLN age gdln acog testing 30-65 Not Available [facility] ([facility]) [address] [place], [address], 10/02/2022 20:09:05 10/01/19 23 10/02/2022 IGP, APTIM A HPV, RFX 16/18 ,45 diagnosis: COMMEN T LIZ MORRIS FOR INTRA EPITH ELIAL LESIO N OR MALANJELICA MENDEZ . PREDO ESHA CE OF COCCO BACIL LI CONSI STENT WITH SHIFT IN VAGIN AL TALAT IS PRESE NT. Not Available [facility] ([facility]) [address] [facility] [facility], [place], [address], 10/02/2022 20:09:06 10/01/19 23 10/02/2022 IGP, APTIM A HPV, RFX 16/18 ,45 specimen adequacy: COMMEN T Satis facto ry for evalu ation . Endoc ervic al and/o r squam ous metap lasti c cells (endo cervi felecia compo nent) are prese nt. Not Available [facility] ([facility]) [address] [place], [address], 10/02/2022 20:09:06 10/01/19 23 10/02/2022 IGP, APTIM A HPV, RFX 16/18 ,45 clinician provided ICD10: RUBA T Z01.4 19 Not Available [facility] ([facility]) [address] [place], [address], 10/02/2022 20:09:06 10/01/19 23 10/02/2022 IGP, APTIM A HPV, RFX 16/18 ,45 performed by: RUBA Adrian , Jahaira cevallos Not Available [facility] ([facility]) [address] [place], [address], 10/02/2022 20:09:06 10/01/19 23 10/02/2022 IGP, APTIM A HPV, RFX 16/18 ,45 . . Not Available [facility] ([facility]) [address] [facility], [place], [address], 10/02/2022 20:09:06 10/01/19 23 10/02/2022 IGP, APTIM A HPV, RFX 16/18 ,45 note: RUBA Cevallos The Pap smear is a scree mara test roz turcios to aid in the detec tion of kamla ligna nt and malig nant condi tions of the uteri ne cervi x. It is not a diagn ostic proce dure and shoul d not be used as the sole means of detec ting cervi felecia cance r. Both false -posi tive and false -nega tive repor ts do occur . Not Available [facility] ([facility]) [address] [place], [address], 10/02/2022 20:09:06 10/01/19 23 10/02/2022 IGP, APTIM A HPV, RFX 16/18 ,45 test methodology: RUBA Cevallos This liqui d based ThinP rep(R ) pap test was scree karolina with the use of an image guide wendie ortega Not Available [facility] ([facility]) [address] [place], [address], 10/02/2022 20:09:06 10/01/19 23 10/02/2022 IGP, APTIM A HPV, RFX 16/18 ,45 HPV aptima NEGATI VE negati ve This nucle ic acid ampli ficat ion test detec ts fourt een high- risk HPV types (16,1 8,31, 33,35 ,39,4 5,51, 52,56 ,58,5 9,66, 68) witho ut diffe renti ation . Not Available [facility] ([facility]) [address] [facility], [place], [address], 10/02/2022 20:09:06 10/01/19 23 10/02/2022 IGP, APTIM A HPV, RFX 16/18 ,45 HPV genotype reflex COMMEN T Crite lucie not met, HPV Genot ype not perfo rmed. Not Available [facility] ([facility]) [address] [facility], [place], [address], 10/02/2022 20:09:06 10/01/19 23 10/02/2022 NUA B VAGIN ITIS PLUS (VG+) atopobium vaginae HIGH - 2 score abnormal Not Available [facility] ([facility]) [address] [facility], [place], [address], 10/02/2022 08:27:59 10/01/19 23 10/02/2022 NUSWA B VAGIN ITIS PLUS (VG+) bvab 2 HIGH - 2 score abnormal Not Available [facility] ([facility]) [address] [place], [address], 10/02/2022 08:27:59 10/01/19 23 10/02/2022 NUSWA B VAGIN ITIS PLUS (VG+) megasphaera 1 HIGH - 2 score abnormal Calcu late total score by alfonso sousa the 3 indiv idual bacte rial vagin osis (BV) marke r score s toget her. Total score is inter prete d as follo ws: Total score 0-1: Indic ates the absen ce of BV. Total score 2: Indet ermin ate for BV. Addit ional clini felecia data shoul d be evalu ated to estab izabella a diagn osis. Total score 3-6: Indic ates the prese nce of BV. This test was swathi conrad and its perfo stephen e pablo easonri stics deter mined by [facility]. It has not been clear ed or appro brad by the Food and Drug Admin istra tion. Not Available [facility] ([facility]) [address] [place], [address], 10/02/2022 08:27:59 10/01/19 23 10/02/2022 NUSWA B VAGIN ITIS PLUS (VG+) rocky albicans, KYAW NEGATI VE negati ve Not Available [facility] ([facility]) [address] [place], [address], 10/02/2022 08:27:59 10/01/19 23 10/02/2022 NUSWA B VAGIN ITIS PLUS (VG+) rocky glabrata, KYAW NEGATI VE negati ve Not Available [facility] ([facility]) [address] [place], [address], 10/02/2022 08:27:59 10/01/19 23 10/02/2022 NUSWA B VAGIN ITIS PLUS (VG+) trich vag by KYAW NEGATI VE negati ve Not Available [facility] ([facility]) [address] [place], [address], 10/02/2022 08:27:59 10/01/19 23 10/02/2022 NUSWA B VAGIN ITIS PLUS (VG+) chlamydia trachomatis, KYAW NEGATI VE negati ve Not Available [facility] ([facility]) [address] [place], [address], 10/02/2022 08:27:59 10/01/19 23 10/02/2022 NUSWA B VAGIN ITIS PLUS (VG+) neisseria gonorrhoeae, KYAW NEGATI VE negati ve Not Available [facility] ([facility]) [address] [facility] [place], [address], 10/02/2022 08:27:59 01/23/2001/22/2023 urina lysis , dipst ick Leukocytes Negati ve Not Available In-Office Order Internal Use Only DO Not Attach Compendium DO Not Attach Compendium, Do Not Delete/merge, 01/22/2023 09:55:12 01/23/20 23 01/22/2023 urina lysis , dipst ick Nitrite negati ve Not Available In-Office Order Internal Use Only DO Not Attach Compendium DO Not Attach Compendium, Do Not Delete/merge, 01/22/2023 09:55:12 01/23/20 23 01/22/2023 urina lysis , dipst ick Urobilinogen .2 Not Available In-Of fice Order Internal Use Only DO Not Attach Compendium DO Not Attach Compendium, Do Not Delete/merge, 01/22/2023 09:55:12 01/23/20 23 01/22/2023 urina lysis , dipst ick Protein Trace Not Available In-Office Order Internal Use Only DO Not Attach Compendium DO Not Attach Compendium, Do Not Delete/merge, 01/22/2023 09:55:12 01/23/20 23 01/22/2023 urina lysis , dipst ick pH 6.0 Not Available In-Office Order Internal Use Only DO Not Attach Compendium DO Not Attach Compendium, Do Not Delete/merge, 01/22/2023 09:55:12 01/23/20 23 01/22/2023 urina lysis , dipst ick Blood Large Not Available In-Office Order Internal Use Only DO Not Attach Compendium DO Not Attach Compendium, Do Not Delete/merge, 01/22/2023 09:55:12 01/23/20 23 01/22/2023 urina lysis , dipst ick Specific [place] 1.025 Not Available In-Off ice Order Internal Use Only DO Not Attach Compendium DO Not Attach Compendium, Do Not Delete/merge, 01/22/2023 09:55:12 01/23/20 23 01/22/2023 urina lysis , dipst ick Ketone Negati ve Not Available In-Office Order Internal Use Only DO Not Attach Compendium DO Not Attach Compendium, Do Not Delete/merge, [id number] 01/22/2023 09:55:12 01/23/2001/22/2023 urina lysis , dipst ick Bilirubin Negati ve Not Available In-Office Order Internal Use Only DO Not Attach Compendium DO Not Attach Compendium, Do Not Delete/merge, [id number] 01/22/2023 09:55:12 01/23/2001/22/2023 urina lysis , dipst ick Glucose Negati ve Not Available In-Office Order Internal Use Only DO Not Attach Compendium DO Not Attach Compendium, Do Not Delete/merge, [id number] 01/22/2023 09:55:12 05/20/19 22 05/19/2021 XR, lumbo sacra l spine , 2 or 3 view No observ ation record ed. [facility] ([facility]) [address] [place], [address], 05/20/2021 13:43:35 Result Notes None recorded. Problems Name Problem SNOMED Code Status Onset Date Resolution Date Notes Provider Name and Address Organization Details Recorded Time Gastric ulcer 885302075 Active 2018 GLENN [place], [place] [facility] 12:35:46 Adult hypertrophi c pyloric stenosis 014881437 Active 2018 El gu[place]in, [place] - [facility] 9 17:44:00 Ulcer of duodenum 79586799 Active 2018 [place], [place] [facility] 9 17:44:15 Gonorrhea 68405291 Active 2018 GLENN Sebastian, [place] [facility] 9 17:30:18 95166033 Completed 201909/18/2020 GLENN [place] [facility] 12:35:50 Thyroid stimulating hormone level below reference range 642469996 Active 2019 GL[place] [facility] 12:35:46 Thyroid stimulating hormone level below reference range 307485927 Completed 2019 Dasia Field [place] [facility] 12:35:46 Dichorionic diamniotic twin 146513868 Active 2019 Dasia Field [place] [facility] 1 12:35:46 Dichorionic diamniotic twin 380514802 Completed 2019 Dasia Field [place] [facility] 12:35:46 Gastric ulcer 774848647 Completed 2018 Dasia Field [place] [facility] 12:35:46 Vitamin D deficiency 71176450 Active 2020 LIVE BROWNLEE Attn: Yvette sousa,[address] [place], [address], [place] [facility] 18:13:23 Bacterial vaginosis 227024357 Completed 03/19/2021 LIVE BROWNLEE Attn: Yvette g,[address] [place], [address], [place] [facility] 14:36:02 Candidiasis 38637543 Completed 03/19/2021 LIVE BROWNLEE Attn: Yvette sousa,[address] [place], [address], [place] [facility] 14:36:05 Chronic cervicitis 42713377 Active [place] [facility] 6 16:40:21 Infection by Trichomonas 14836017 Active [place] [facility] 6 16:40:21 Anemia 377044097 Completed 03/19/2021 LIVE BROWNLEE Attn: Xochitlin g,[address] [place], [address], [place] [facility] 14:36:00 Abdominal pain 41277486 Completed 03/19/2021 LIVE BROWNLEE Attn: Yvette sousa,[address] [facility], [place], [address], [place] [facility] 14:35:48 Irritable bowel syndrome 05359288 Active [place] gu[place], [place] [facility] 6 16:40:21 Acute dermatitis 91326752 Completed 03/19/2021 LIVE BROWNLEE Attn: Yvette sousa,[address] [facility], [place], [address], [place] [facility] 14:35:51 Epigastric pain 39925587 Completed 03/19/2021 LIVE BROWNLEE Attn: Yvette sousa,[address] [facility], [place], [address], [place] [facility] 14:36:16 Problem Notes None recorded. Procedures Surgical History Date Name Laterality Status Provider Name and Address Organization Details Recorded Time 10/01/19 23 Date of Last Pap Smear completed LIVE TAVAREZ Attn: Accounting,[address] [facility], [place], [address], [place] [facility] 09/30/2022 11:05:59 10/24/19 21 Control Implant Insertion completed El Daugherty [place] - [facility] 10/22/2020 18:04:54 03/10/20 18 Control Implant Removal completed El Daugherty [place] - [facility] 03/10/2018 17:45:14 03/19/20 15 Control Implant Removal completed El Daugherty [place] [facility] 03/19/2015 15:54:28 03/19/20 15 Control Implant Insertion completed [place] [facility] 03/19/2015 15:54:28 Tonsillectomy completed Temi Olmedo [place] [facility] 10/24/2014 12:27:32 Other completed Temi Olmedo [place] [facility] 10/24/2014 12:27:32 Imaging Results Imaging Date Name Status LastModified by Organiz ation Details LastModified Time 05/19/2021 XR, lumbosacral spine, 2 or 3 view completed [facility] ([facility]) [address] [place], [address], 05/20/2021 13:43:35 Procedure Notes None recorded. Medical Equipment None Reported. Allergies Allergen ID Allergen Name Allergen Category Reaction Reaction Severity Criticality Documentation Date Start Date Code Code System Note Provider Name and Address Organization Details Recorded Time 496681 amoxicill in medicatio n rash severe Not available 03/16/20192018 723 RxNorm Not Available Not Available Not Available Medications Name Sig Start Date Stop Date Status Note LastModified by Organization Details LastModified Time multivita min tablet Take 1 tablet every day by oral route. 05/21 completed Not Available Not Available Not Available cyclobenz aprine 10 mg tablet Take 1 tablet every day by oral route at bedtime for 30 days. 09/30 completed Not Available Not Available Not Available amoxicill in 500 mg capsule 03/16 completed Not Available Not Available Not Available naproxen 375 mg tablet active Not Available Not Available Not Available ketoconaz ole 2 % shampoo 09/30 completed Not Available Not Available Not Available cetirizin e 10 mg tablet active Not Available Not Available Not Available Tab-A-Vit e tablet 08/16 completed Not Available Not Available Not Available azithromy kaushik 250 mg tablet TAKE 2 TABLETS BY MOUTH TODAY, THEN TAKE 1 TABLET DAILY FOR 4 DAYS 09/30 completed Not Available Not Available Not Available fluconazo le 150 mg tablet Take 1 tablet by oral route. 10/25 completed Not Available Not Available Not Available ranitidin e 300 mg tablet Take 1 tablet every day by oral route at bedtime. active Not Available Not Available No t Available clarithro mycin 500 mg tablet 06/22 completed Not Available Not Available Not Available hydrocodo ne 5 mg-acetam inophen 325 mg tablet active Not Available Not Available Not Available sucralfat e 1 gram tablet 06/22 completed Not Available Not Available Not Available phenazopy ridine 200 mg tablet active Not Available Not Available Not Available metronida zole 0.75 % (37.5 mg/5 gram) vaginal gel INSERT 1 APPLICAT ORFUL VAGINALL Y EVERY DAY AT BEDTIME FOR 5 DAYS 01/22 completed Not Available Not Available Not Available ondansetr on HCl 4 mg tablet 03/10 completed Not Available Not Available Not Available prednison e 20 mg tablet active Not Available Not Available Not Available alclometa sone 0.05 % topical cream 08/16 completed Not Available Not Available Not Available permethri n 5 % topical cream active Not Available Not Available Not Available metronida zole 500 mg tablet Take 1 tablet twice a day by oral route as directed for 7 days. 01/31 completed 01/25/20 Pt states [facility] on. DG RMA Not Available Not Available Not Available nifedipin e ER 30 mg tablet,ex tended release 03/19 completed Not Available Not Available Not Available ciproflox acin 500 mg tablet 03/10 completed Not Available Not Available Not Available sulfameth oxazole 800 mg-trimet hoprim 160 mg tablet Take 1 tablet every 12 hours by oral route for 10 days. 06/22 completed Not Available Not Available Not Available omeprazol e 40 mg capsule,d elayed release Take 1 capsule every day by oral route before meals. 03/10 completed Not Available Not Available Not Available Condoms-P rem Lubricate d Take 1 device as needed by miscell. route as needed. 03/10 completed Not Available Not Available Not Available triamcino lone acetonide 0.1 % topical cream APPLY A THIN LAYER TO THE AFFECTED AREA(S) BY TOPICAL ROUTE 2 TIMES PER DAY 08/16 completed Not Available Not Available Not Available Vitamin tablet Take 1 tablet every day by oral route as directed for 90 days. 03/19 completed Not Available Not Available Not Available famotidin e 20 mg tablet Take 1 tablet twice a day by oral route. active Not Available Not Available No t Available amitripty line 25 mg tablet 03/10 completed Not Available Not Available Not Available cephalexi n 500 mg capsule 08/16 completed Not Available Not Available Not Available pantopraz ole 40 mg tablet,de layed release 05/21 completed Not Available Not Available Not Available ferrous sulfate 325 mg (65 mg iron) tablet TAKE 1 (ONE) TABLET BY MOUTH ONCE DAILY 05/21 completed Not Available Not Available Not Available neomycin- polymyxin -dexameth 3.5 mg/mL-10, 000 unit/mL-0 .1% eye drops 08/16 completed Not Available Not Available Not Available triamcino lone acetonide 0.1 % topical ointment 08/16 completed Not Available Not Available Not Available calcipotr iene 0.005 % topical cream 03/19 completed Not Available Not Available Not Available Guaifenes in AC 10 mg-100 mg/5 mL oral liquid active Not Available Not Available Not Available omeprazol e 20 mg capsule,d elayed release TAKE 1 CAPSULE BY MOUTH TWICE A DAY 09/18 completed Not Available Not Available Not Available folic acid 1 mg tablet TAKE 1 TABLET BY MOUTH ONCE DAILY 03/19 completed Not Available Not Available Not Available hydroxyzi ne HCl 25 mg tablet 06/22 completed Not Available Not Available Not Available Tussin DM 10 mg-100 mg/5 mL oral liquid active Not Available Not Available Not Available ceftriaxo ne 500 mg solution for injection Take 500 mg by injectio n route. 06/22 completed Not Available Not Available Not Available methylpre dnisolone 4 mg tablets in a dose pack Take 1 dose pk by oral route. 05/21 completed Not Available Not Available Not Available Vitamin D2 1,250 mcg (50,000 unit) capsule Take 1 capsule every week by oral route as directed for 28 days. 09/30 completed Not Available Not Available Not Available clobetaso l 0.05 % scalp solution 03/19 completed Not Available Not Available Not Available ondansetr on 4 mg disintegr ating tablet active Not Available Not Available Not Available naproxen 500 mg tablet active Not Available Not Available Not Available calcipotr iene 0.005 % topical ointment 08/16 completed Not Available Not Available Not Available Vitamin 27 mg iron-0.8 mg tablet TAKE 1 TABLET BY MOUTH EVERY DAY DIRECTED 03/19 completed Not Available Not Available Not Available nitrofura ntoin monohydra te/macroc rystals 100 mg capsule TAKE 1 CAPSULE BY MOUTH TWICE A DAY FOR 5 DAYS 01/22 completed Not Available Not Available Not Available Calcium with Vitamin D 600 mg-10 mcg (400 unit) tablet Take 1 tablet twice a day by oral route. 05/21 completed Not Available Not Available Not Available GaviLyte- G 236 gram-22.7 4 gram-6.74 gram-5.86 gram oral solution 08/16 completed Not Available Not Available Not Available Lo Loestrin Fe 1 mg-10 mcg (24)/10 mcg (2) tablet Take 1 tablet every day by oral route. 01/31 completed 01/25/20 Pt states stopped taking around 10/26/19 DG RMA Not Available Not Available Not Available Nexplanon 68 mg subdermal implant Inject 1 implant by subcutan eous route. 2020 active Not Available Not Available Not Avai lable DHA 200 mg capsule TAKE 1 CAPSULE BY MOUTH EVERY DAY. 03/19 completed Not Available Not Available Not Available Cinthia s Butt Paste 40 % topical ointment Apply 1 applicat ion twice a day by topical route. 09/18 completed Not Available Not Available Not Available calcium 600 mg (as carbonate )-vitamin D3 20 mcg (800 unit) tablet Take 1 tablet twice a day by oral route for 30 days. 06/22 completed Not Available Not Available Not Available Linzess 145 mcg capsule Take 1 capsule every day by oral route. 2015 active Not Available Not Available Not Avai lable My Way 1.5 mg tablet Take 1 tablet by oral route. 10/25 completed Not Available Not Available Not Available Otezla 30 mg tablet 12/06 completed Not Available Not Available Not Available Vitals Date Recorded Body height Body mass index (BMI) Body weight Heart rate Body temperature Oxygen saturation Oxygen saturation in Arterial blood by Pulse oximetry Systolic blood pressure Diastolic blood pressure Provider Name and Address Organization Details Last Updated DateTime 1 167.64 cm 31.5 kg/m2 73571.9 4 g 98 /min 98.1 [degF] 98 % 98 % 122 mm[Hg] 72 mm[Hg] Brenda Blackwood [place] - [facility] 1 14:17:04 Date Recorded Body height Body mass index (BMI) Body weight Heart rate Oxygen saturation Oxygen saturation in Arterial blood by Pulse oximetry Systolic blood pressure Diastolic blood pressure Provider Name and Address Organization Details Last Updated DateTime 2 167.64 cm 31.8 kg/m2 83383.2 9 g 71 /min 98 % 98 % 110 mm[Hg] 72 mm[Hg] Marleny Baron MA [facility] 2 09:10:56 Date Recorded Body height Body mass index (BMI) Body weight Heart rate Body temperature Oxygen saturation Oxygen saturation in Arterial blood by Pulse oximetry Systolic blood pressure Diastolic blood pressure Provider Name and Address Organization Details Last Updated DateTime 2 167.64 cm 32.2 kg/m2 29542.0 7 g 82 /min 98 [degF] 99 % 99 % 102 mm[Hg] 72 mm[Hg] Marleny Baron MA [facility] 2 09:33:33 Date Recorded Body weight Body mass index (BMI) Body height Systolic blood pressure Diastolic blood pressure Provider Name and Address Organization Details Last Updated DateTime 09/30/2022 33123.92 g 31.3 kg/m2 167.64 cm 120 mm[Hg] 78 mm[Hg] Marlene Lawrence MA [facility] 3 10:59:52 Date Recorded Body height Body mass index (BMI) Body weight Systolic blood pressure Diastolic blood pressure Provider Name and Address Organization Details Last Updated DateTime 01/22/2023 167.64 cm 32.1 kg/m2 55810.88 g 102 mm[Hg] 74 mm[Hg] Desirae Torres MA [facility] 3 09:38:05 Social History Question Answer Notes LastModified by Organizat ion Details LastModified Time Tobacco Smoking Status Never Smoker Karla Lofton MA null, [facility] 09/04/2014 11:57:57 Do You Have An Advance Directive? No Information not available 10/24/2014 What Is Your Level Of Alcohol Consumption? Occasional Information not available 10/24/2014 Is Blood Transfusion Acceptable In An Emergency? Yes Information not available 10/24/2014 What Is Your Level Of Caffeine Consumption? Occasional Information not available 10/24/2014 How Much Tobacco Do You Chew? None Information not available 10/24/2014 Are You Currently Employed? Yes Information not available 10/24/2014 What Type Of Diet Are You Following? REGULAR Information not available 10/24/2014 Which Illicit Or Recreational Drugs Have You Used? None Information not available 10/24/2014 Do You Or Have You Ever Used E-cigarettes Or Vape? Never Used Electronic Cigarettes Information not available 08/17/2019 Education 12 Information no t available 10/24/2014 What Is Your Occupation? [employer] Information not available 08/17/2019 Have There Been Any Changes To Your Family Or Social Situation? No Information no t available 09/18/2020 Live Alone Or With Others? With Others Information not available 10/24/2014 What Was The Date Of Your Most Recent Tobacco Screening? 01/22/2023 Information not available 01/22/2023 How Many Children Do You Have? 1 Information not available 10/24/2014 Performs Monthly Self-breast Exam? Yes Information no t available 10/24/2014 Do You Have Any Pets? Yes Information not available 09/18/2020 Do You Use Protection During Sex? Usually Information not available 10/24/2014 What Is Your Relationship Status? Single Information not available 10/24/2014 Do You Use Your Seat Belt Or Car Seat Routinely? Yes Information not available 09/18/2020 Seat Belts Used Routinely No Information not available 10/24/2014 Are You Sexually Active? No Information not available 10/24/2014 Do You Have Smoke And Carbon Monoxide Detectors In Your Home? Yes Information not available 09/18/2020 At What Age Did You Start Smoking Tobacco? 0 Information not available 10/24/2014 Are You Passively Exposed To Smoke? No Information no t available 09/18/2020 Do You Or Have You Ever Used Smokeless Tobacco? Never Used Smokeless Tobacco Information not available 08/17/2019 How Much Tobacco Do You Smoke? No Information not available 10/24/2014 General Stress Level Low Information not available 10/24/2014 Do You Use Any Illicit Or Recreational Drugs? No Information not available 09/18/2020 Do You Use Sunscreen Routinely? No Information not available 10/24/2014 Has Tobacco Cessation Counseling Been Provided? Yes Information not available 01/22/2023 On What Date Was Tobacco Cessation Counseling Provided? 01/22/2023 Information not available 01/22/2023 How Many Years Have You Smoked Tobacco? 0 Information not available 10/24/2014 Do You Or Have You Ever Used Any Other Forms Of Tobacco Or Nicotine? No Information not available 09/18/2020 Sex: Unknown Functional Status Question Answer Note LastModified by Organization D etails LastModified Time What is your exercise level? None Information not available 10/24/2014 Mental Status None recorded. Family History Nothing Reported. Medical History Condition Response Heart Problems N Other N High Blood Pressure N Breast Cancer N Kidney or Bladder Problems N Thyroid Problems N Lung Disease N Depression N Blood Clots N GI Problems Y Acne N Breast Problem N Eating Disorder N Anemia N Anesthesia Complications N Headaches/Migraines N Anxiety Disorder N Ovarian Cancer N Diabetes N Muscle, Joint, or Bone Problems N Blood Transfusions N Arthritis N Seizures/Epilepsy N Infertility N Polyps N Acid Reflux (GERD) N Cancer N Abuse/Domestic Violence N Asthma N Endometriosis N High Cholesterol N Hepatitis N Liver Disease N Heart Disease N Fibromyalgia N Pre-Eclampsia N Hypertension N Osteoporosis N Kidney Disease N Gynecological History Statement/Question Response Abnormal Pap N Flow Light Date of LMP 01/18/2023 On BCP's at Conception? N STIs/STDs N HPV Vaccine Yes Duration of Flow (days) 4 Age at Menarche 16 Current Control Method Implant Age at First Child 19 Frequency of Cycle (Q days) 28 Sexually Active? Y Menses Monthly Y Date of Last Pap Smear 09/30/2022 Sexual Problems? N LMP Definite Desired Control Method Unknown Obstetrics History GPAL:G 2 P 2 0 0 3 Type Value Multiple Births 1 Full Term 2 Induced 0 Spontaneous 0 Premature 0 Living 3 Ectopics 0 Total 2 Immunizations Vaccine Type Date Status Note Provider Nam e and Address Organization Details Recorded Time Influenza, split virus, quadrivalent, preservative 8 completed Not Available [facility] 05/13/2019 02:44:14 HPV, quadrivalent 5 completed Not Available [facility] 05/13/2019 02:50:25 Hep A-Hep B 5 completed Not Available [facility] 05/13/2019 02:44:52 Hep A-Hep B 5 completed Not Available [facility] 05/13/2019 02:49:10 HPV, quadrivalent 5 completed Not Available [facility] 05/13/2019 02:51:04 Influenza, split virus, quadrivalent, PF 0 completed Edwina Arcos MA [facility], [place] - [facility] 01/25/2020 12:57:24 Hep A-Hep B 5 completed Not Available [facility] 05/13/2019 02:30:51 Past Encounters Encounter ID Performer Location Encounter Start Date Encounter Closed Date Diagnosis/Indication Diagnosis SNOMED-CT Code Diagnosis ICD10 Code Diagnosis Note [id number] GLENN Valerio ([employer]) [address] [place] [address] 09/04/2014 11:03:17 09/04/2014 14:14:11 Subcutaneous contraceptive implant palpable 552140666 Venereal d isease screening 212390931 Family edin nning surveillance 595799311 Bacterial vaginosis 105243996 Candidiasis 18405685 Chronic cervicitis 52108617 Active or passive immunization 120426161 [id number] Juan Diego ([employer]) [address] [place] [address] 10/24/2014 11:36:40 10/24/2014 13:19:10 Infection by Trichomonas 43803705 Subcutaneo us contraceptive implant palpable 769621217 Hepatitis B non-immune 038246176 Active or passive immunization 293774317 [id number] GLENN Valerio ([employer]) [address] [place] [address] 0 02/26/2015 10:57:58 02/26/2015 13:18:52 Family planning surveillance 994005302 Z30.09 Subcutaneo us contraceptive implant palpable 234959286 Z30.49 nexplanon implant palpated by pt and provider with no neuromuscu lar def or pain Anemia 042202051 D64.9 Active or passive immunization 145734314 Z23 [id number] GLENN Sebastian ([employer]) [address] [place] [address] 0 03/19/2015 14:53:51 03/19/2015 16:13:57 Subcutaneous contraceptive implant present 815039921 Z30.42 [id number] El Adamson ([employer]PER[employer]) [address] [place] [id number] 0 05/29/2015 14:52:11 05/29/2015 17:18:48 Subcutaneous contraceptive implant present 395087585 Z30.42 Irritable bowel syndrome 00922236 K58.9 Acute dermatitis 0139559 6 L30.9 Active or passive immunization 798679765 Z23 [id number] MD Juan Diego Perez (Adult Med) [address] [place] [address] 0 06/06/2015 15:40:22 06/06/2015 16:30:51 Abdominal pain 02584690 R10.9 US normal. Additional w/u if sx persist [id number] Janie AdrianCampbell is Juan Diego (Adult Med) [address] [place] [address] 10/07/2015 16:17:46 10/07/2015 18:18:46 Epigastric pain 12439071 R10.13 [id number] GLENN Bustamante ([employer]) [address] [place] [address]30[address] 0 10/15/2015 15:41:12 10/15/2015 17:06:35 Family planning surveillance 983638566 Z30.09 Subcutaneo us contraceptive implant palpable 679501249 Z30.49 nexplanon implant palpated by pt and provider with no neuromuscu lar def or pain Bacterial vaginosis 4197 72888 N76.0 [id number] El Adamson ([employer]) [address] [place] [address]56[address] 0 10/15/2016 14:59:17 10/16/2016 14:01:00 Gynecologic examination 93526556 Z01.419 Exposure t o sexually transmissible disorder 183050608 Z20.2 Subcutaneo us contraceptive implant palpable 049712857 Z30.49 nexplanon implant palpated by pt and provider with no neuromuscu lar def or pain [id number] El Adamson ([employer]) [address] [place] [address] 0 03/10/2018 10:01:22 03/11/2018 14:17:54 Gynecologic examination 02338809 Z01.419 Exposure t o sexually transmissible disorder 853502187 Z20.2 Removal of subcutaneous contraceptive done 4129465021 86304 Z30.46 Administra tion of influenza vaccine 90104347 Z23 [id number] El Adamson HC ([employer]) [address] [place] [address] 96007[address]871 0 05/26/2018 16:28:25 05/27/2018 09:43:06 Exposure to sexually transmissible disorder 768829311 Z20.2 Family edin nning surveillance 112644953 Z30.09 [id number] El Adamson HC ([employer]) [address] [place] [address] 14086[address]446 0 12/22/2018 11:10:30 12/23/2018 13:32:24 Exposure to sexually transmissible disorder 882724144 Z20.2 Acute urin carroll tract infection 907250409 N39.0 Gynecologi c examination 90629026 Z01.272 [id number] GELNN Bustamante HC ([employer]) [address] [place] [address]45[address] 0 01/06/2019 16:39:44 01/09/2019 12:28:12 Gonorrhea 19870731 A54.9 [id number] LIVE TAVAREZ HC ([employer]) [address] [place] [address] 96849-561 0 03/16/2019 16:03:07 2019 09:54:33 Gonorrhea 78223356 A54.9 Bacterial vaginosis 4197 33088 N76.0 Symptoms consistent with BV and pt has h/o recurrent infections . Will treat. [id number] LIVE TAVAREZ HC ([employer]) [address] [place] [address] [id number] 0 06/22/2019 15:16:52 06/23/2019 14:01:22 Vaginitis 28643940 N76.0 F/U culture. [id number] El Adamson HC ([employer]PER[employer]) [address] [place] [address] 15406-194 0 08/17/2019 10:09:10 08/18/2019 15:19:03 Family planning surveillance 510750272 Z30.09 [id number] El Willow Adamson ([employer]) [address] [place] [address] 27559[address]199 0 10/25/2019 14:43:54 10/27/2019 09:00:51 [id number] El Willow Adamson ([employer]PER[employer]OR) [address] [place] [address] 03802[address]773 0 10/26/2019 15:17:58 10/30/2019 09:17:09 Family planning surveillance 544578793 Z30.09 [id number] LIVE TAVAREZ ([employer]PER[employer]) [address] [place] [address] [id number] 0 12/07/2019 12:56:18 12/13/2019 06:47:26 Venereal disease screening 625069007 Z11.3 Will treat pending results. Advised to refrain from sexual contact until negative testing. Safe sex practices discussed. Condoms provided. Bacterial vaginosis 4197 55378 N76.0 Clin consistent with BV and pt has h/o recurrent infections . Will treat. Take antibiotic s as prescribed , avoid alcohol while taking. Use mild, unscented soaps or plain water when washing, avoid any products with fragrance. Wear cotton underwear and loose fitting clothing. Wash only once per day, do not overscrub or douche. Can use ice pain or soak in cool water to relieve itching, avoid scratching . F/u nuswab. Lesion of vulva [id number] 6 N90.89 Pt denies h/o genital herpes. Suspect folliculit is. F/u culture to r/o HSV. [id number] LIVE TAVAREZ (FUR DRESSING SUPERVISOR) [address] [place] [address] [phone] 01/25/2020 09:24:28 01/25/2020 11:29:42 Routine care [id number] Z34.90 29yo F with PMH of GERD/gastr ic ulcers presenting for NOB at [facility] 9 weeks. LMP 11/20. She denies cramping, bleeding, n/v, fevers. NOB labs drawn today. Order for first trimester US provided. Flu vaccine administer ed. OB educationa l packet reviewed and provided to patient. RTC in 4 weeks. Venereal d isease screening 124436273 Z11.3 screening 2437 17584 Z36.85 Bacterial vaginosis 4197 13810 N76.0 Clin consistent with BV and pt has h/o recurrent infections . Will treat. Use mild, unscented soaps or plain water when washing, avoid any products with fragrance. Wear cotton underwear and loose fitting clothing. Wash only once per day, do not overscrub or douche. Can use ice pain or soak in cool water to relieve itching, avoid scratching . F/u nuswab. Administra tion of influenza vaccine 16259570 Z23 Gastric ulcer 628198615 K25.9 Currently on pantoprazo le per GI. She has appt later today with specialist to determine course of treatment during . [id number] LIVE TAVAREZ [facility] (FUR DRESSING SUPERVISOR) [address] [place] [address] [phone] 02/22/2020 09:20:49 02/23/2020 09:35:39 Routine care [id number] Z34.90 29yo F presenting for vandana at 14w gestation. US 02/08/20 noting dichorioni c diamniotic twin intrauteri ne w/ EDC 08/23/2019 . FH at 14wks. FHT Fa 150, Fb 152. Pelvic and perineal pain 392569554 R10.2 Pt complainin g of lower abdominal pain and lower back pain. Maternity belt provided. Dichorioni c diamniotic twin [id number] O30.041 US 02/07 noting dichorioni c diamniotic twin intrauteri ne . Referral made to mfm and pt has upcoming appt on 03/13. Thyroid st imulating hormone level below reference range 819478507 R94.6 TSH .011 on 01/25/20. No clinical picture of hyperthyro idism. Will recheck TSH and T4. [id number] El Adamson [facility] (FUR DRESSING SUPERVISOR) [address] [place] [address] [phone] 09/18/2020 11:49:24 09/20/2020 14:59:03 care 550345273 Z39.2 Twins - zaida th live born 654662152 Z37.2 delivered by MFM. Family edin nning surveillance 689970719 Z30.09 Glucose to lerance test outside reference range 778300306 R73.09 [id number] GLENN Caicedo (FUR DRESSING SUPERVISOR) [address] [place] [address] [phone] 0 10/23/2020 14:53:49 10/24/2020 16:21:36 Family planning surveillance 240186422 Z30.09 Insertion of subcutaneous contraceptive 971833817 Z30.9 [id number] LIVE BROWNLEE (Adult Med) [address] [place] [address] [phone] 03/19/2021 14:00:21 03/21/2021 11:24:48 Adult health examination 249103465 Z00.00 Has not been seen by PCP in many years. Was seeing Kristy Patel during her . History of abnormal thyroid labs, gestationa l diabetes, and low iron levels during . Order CMP, CBC, Hemoglobin A1C, VItamin D, Iron, TIBC, and ferritin Low back pain 649112472 M54.50 Low back pain radiating to the bilateral lower extremitie s in the anterior aspect, stopping just below the knees x 7 months since the of her twins. Cannot take NSAIDs secondary to ulcer history.No prior back pain, no injury to the back. -Order lumbar radiograph -Order physical therapy-St art cyclobenza tex 10mg 1 PO QHS- Start Medrol dose kash- f/u in 4-6 weeks after finishing PT Disorder o f thyroid gland 10416656 E07.9 Abnormal TSH in 01/2020, will recheck today. No current symptoms [id number] LIVE BROWNLEE (Adult Med) [address] [place] [address] [phone] 05/21/2021 08:56:46 05/22/2021 14:18:23 Vitamin D deficiency 15414594 E55.9 Labs showed low Vit. D, has been taking weekly as prescribed for the last 2 months- will recheck labs today Low back pain 591557357 M54.50 Low back pain started about 9 months ago after delivering twinsSaw slight improvemen t over the last two months with supportive care, medication s (short course of steroids and muscle relaxers), and heat. Has not started PT yet, had to reschedule twice due to COVID and transporta tion issues, has first appointmen t tomorrow.S tates the numbness/t ingling in the anterior aspect of her legs improved after taking the steroids.S till having constant dull low back pain with intermitte nt sharp pains across the low back with certain movements and with lifting.Ca nnot take NSAIDs secondary to ulcer history. No prior back pain, no injury to the back.Lumba r xray: overall normal- c/w supportive care, can take Tylenol but avoid NSAIDS- start and complete physical therapy- c/w cyclobenza tex 10mg 1 PO QHS- f/u in 4-6 weeks after finishing PT [id number] LIVE BROWNLEE (Adult Med) [address] [place] [address] [phone] 06/26/2021 09:13:07 06/26/2021 10:04:57 Low back pain 996833781 M54.50 She completed PT since our last visit and states her pain has pretty much resolved, now will have pain 1/10 instead of 8-10/10. She also used the muscle relaxers which were helpful, no longer taking.She is happy with her progress and not interested in further treatment at this time.- c/w supportive care at home and stretches provided by PT- work on core muscles to help decrease back pain and back use- f/u as needed Vitamin D deficiency 347 95814 E55.9 Labs showed low Vit. D, has been taking weekly as prescribed for the last 2 months- c/w vit. D supplement s, will recheck again in 6 months [id number] LIVE TAVAREZ (FUR DRESSING SUPERVISOR) [address] [place] [address] [phone] 09/30/2022 10:48:57 10/01/2022 10:09:11 Gynecologic examination 78478259 Z01.419 Cervical cancer screening: Last Pap 03/10/2018 NILM, updated todayBreas t cancer screening: Reviewed recommenda tions for initiation at age 40 with annual screening. Discussed SBESTI screening: routine nuswab, treat as needed. Safe sex practices discussed. Contracept ana: Nexplanon, inserted iet/e xercise: Counseled regarding importance of physical activity, healthy diet and appropriat e calcium intake.RTC in 1yr Vaginal discharge 425863 006 N89.8 Intermitte nt malodorous discharge. Will treat empiricall y with metrogel, follow up nuswab results. Vaginal hygiene discussed. Sterilizat ion requested [id number] Z30.2 Pt interested in salpingect gerard, referral placed to Dr Romo for consultati on. Obesity 865619286 E66.9 per BMI 31.3. Recommende d daily exercise with a goal of 150 min/week of moderate-s trenuous activity and a balanced diet with an emphasis on fruits, vegetables , whole grains, legumes, lean protein, and mono/polyu nsaturated fats. [id number] LIVE TAVAREZ (FUR DRESSING SUPERVISOR) [address] [place] [address] [phone] 01/22/2023 09:21:30 01/26/2023 11:54:41 Pain in pelvis 55730154 R10.2 32 y/o female with recent onset of pelvic/kat LQ abdominal pain that radiates to her low back and posterior upper legs that began 2 weeks ago, constant. Denies N/V/D/C, bloody stools, dysuria, hematuria, discharge. Not currently sexually active.- UA unremarkab le (pt currently menstruati ng)- ordered pelvic ultrasound for further evaluation Health Concerns Section Related Observation LastModified by Organization Detai ls LastModified Time None Recorded Concern Status LastModified by Organization Details LastModified Time None Recorded Advance Directives Directive N: Payers Encounter Date Sequence Insurance Name Policy Number Policy Yoder Covered Member ID Yoder Member ID Guarantor Name 03/19/[address] [facility] - DOS PRIOR TO 2020 (MEDICAID REPLACEMENT - HMO) Luisa Luke [id number] Luisa Luke 05/21/2021 1 [facility] [id number] Luisa Luke [id number] Luisa Luke 05/21/2021 2 [place] [facility] Luisa Luke [id number] Luisa Luke 06/26/2021 1 [facility] [id number] Luisa Luke [id number] Luisa Luke 06/26/2021 2 [place] [facility] Luisa Luke [id number] Luisa Luke 09/30/2022 1 [facility] [id number] Luisa Luke [id number] Luisa Luke 09/30/2022 2 [place] [facility] Luisa Luke [id number] Luisa Luke 01/22/2023 1 [facility] [id number] Luisa Luke [id number] Luisa Luke 01/22/2023 2 [facility] (MEDICAID HMO) [id number] Luisa Luke [id number] Luisa Luke Notes Date Note Type Note Provider Name and Address Organization Details Recorded Time 03/19/2021 text/html 30 year old allen shepard presents to establish care, and also to discuss low back pain that began 7 months ago. Patient reports giving to twins at that time. She denies having any history of back pain prior to her . She has not tried medication due to her history of ulcers, but reports stretching, tylenol, and heating pad use decreases her pain. It is described as sharp and radiates intermittently into her bilateral lower extremities anteriorly just past the knees. She denies weakness, loss of bowel, loss of bladder, or other symptoms. She has not had imaging on her back in the past. She is not currently. History of abnormal thyroid labs, gestational diabetes, and low iron levels during . LIVE BROWNLEE Attn: Accounting[address] [place], [address], [place] [facility] 03/19/2021 15:39:08 05/21/2021 text/html 31 year old allen shepard presents today for f/u on low back pain. Patient reports giving to twins a little less than 1 year ago, back pain started after that. Saw slight improvement over the last two months with supportive care, medications (short course of steroids and muscle relaxers), and heat. Has not started PT yet, had to reschedule twice due to COVID and transporation issues, has first appointment tomorrow. States the numbness/tingling in the anterior aspect of her legs improved after taking the steroids. Still having constant dull low back pain with intermittent sharp pains across the low back with certain movements and with lifting.Cannot take NSAIDs secondary to ulcer history. No prior back pain, no injury to the back. She denies weakness, loss of bowel, loss of bladder, or other symptoms. She is not currently. LIVE BROWNLEE Attn: Accounting[address] [place], [address], [facility] 05/21/2021 09:35:01 06/26/2021 text/html 31 year old allen shepard presents today for f/u on low back pain. She completed PT since our last visit and states her pain has pretty much resolved, now will have pain 1/10 instead of 8-10/10. She also used the muscle relaxers which were helpful, no longer taking. She is happy with her progress and not interested in further treatment at this time. No prior back pain, no injury to the back. She denies weakness, loss of bowel, loss of bladder, or other symptoms. LIVE BROWNLEE Attn: Accounting[address] [place], [address], [facility] 06/26/2021 16:34:03 09/30/2022 text/html Annual GYNReport ed bypatient.Menstrual cycle:Normal menses Urinary symptoms:No hematuria; No incontinence Vulva:No genital lesion Vagina:Foul-smellin g Breast:No breast pain; No breast lump; No nipple discharge Current Contraception:Impla non; interested in BTL Sexual complaints:No sexual complaints; No pain during intercourse; Normal libido Menopausal Symptoms:No menopausal symptoms; Normal vaginal lubrication Psychological symptoms:No depression; No anxiety; No PMDD Preventive measures:Encourage self breast examination; Encourage regular exercise; Encourage no tobacco use 32yo F presenting for WWE/Pap. She reports intermittent malodorous discharge x months which seems to be improving. No other concerns today. LIVE TAVAREZ Attn: Accounting[address] [place], [address], [facility] 09/30/2022 12:39:44 01/22/2023 text/html 32 y/o fema drea presenting with a history of gastric ulcers d/t H. pylori complains of dysmenorrhea. Has nexplanon and previously had normal periods with minimal cramping on the first day of her menstrual cycle. The past two months she has had irregular light spotting rather than her regular cycle. States two weeks ago she began to have lower abdominal/pelvic pain that radiates to her low back and posterior upper legs. Pain is constant. No notable triggers/causes. Describes it as crampy/achy. Denies heavy bleeding, discharge, melena, hematochezia, constipation, diarrhea, dysuria, hematuria, nausea, vomiting, fevers, strenuous activity, trauma.Last pap on 10/16/22 normal.Not sexually active. LIVE TAVAREZ Attn: Accounting[address] [place], [address], [facility] 01/22/2023 15:52:08 OBGyn Episode Ob Episode Information Episode Created Date Number of Fetuses Patient Bloodtype Patient rh Status Prepregnancy Weight lbs Domestic Partner Domestic Partner Phone Father Name Promotions Assistant Sales Marketing Status 01/25/20 20 2 O Positive 185 CLOSED Fetus Data First Name Last Name Admitted to NICU Weight (g) Sex Living Outcome Pediatric Complications Fetus ID Race Codes Race Delivery Type Hilario Rea rd false 3005.04 7 M Full Term 63547 2057-09 [employer] can Vaginal Katya Rea rd true 2976.69 75 M Full Term 31818 2057-09 [employer] an [employer] can Vaginal Problems Problem Notes [facility] with Dr. 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; Nexplanon for BC after delivery Problem Name Start Date End Date Resolution Snomed Code Not e Thyroid stimulating hormone level below reference range 02/05/2020 [id number] Dichorionic diamniotic twin 02/14/2020 [id number] Gastric ulcer 05/26/2018 [id number] Rogelio Calculation Initial Rogelio Date Initial Exam Date Initial Exam Provider Initial Ultrasound Date Last Menstrual Period Date Ultra Sound Weeks Gestation 08/22/2020 01/25/2020 [email or web address] 02/08/2020 11/21/2019 0 Eighteen To Twenty Week Rogelio Update Ultra Sound Date Fundal Height At Umbil Quickening Date Ultra Sound Latest Weeks Gestation Final Rogelio Confirmed By Final Rogelio Confirmed Date Final Rogelio Date Ultra Sound Latest Days Gestation 0 [email or web address] 02/21/2020 08/23/19 21 0 Pre-tres Flowsheet Flowsheet Date 01/25/2020 Morrissey Score Blood Edema Fundus Height Fundus Units Glucose Ketones Leukocytes Nitrite Labor Signs Protein Cervic Dilation Cervic Effacement Cervic Station 1+ none 9 wks none negative 1+ 0cm 0% - 4 Type Weight in lbs Pre/Post Dialysis Refused Weight 187.983530481067 BP Diastolic BP Location Tested BP Systolic BP Type 60 114 sitting Fetus Heart Rate Present Fetus Movement Comments NOB. Labs drawn. Order for f irst trimester US given. OB educational packet reviewed and provided to patient. Flu vaccine administered. Flowsheet Date 02/22/2020 Morrissey Score Blood Edema Fundus Height Fundus Units Glucose Ketones Leukocytes Nitrite Labor Signs Protein Cervic Dilation Cervic Effacement Cervic Station neg none 14 wks none negative none neg Type Weight in lbs Pre/Post Dialysis Refused Weight 187.317228731453 BP Diastolic BP Location Tested BP Systolic BP Type 56 112 sitting Fetus Heart Rate Present A 150 Present B 152 Present Fetus Movement Comments 29yo F presenting for r ob at 14w gestation. US 02/08/20 noting dichorionic diamniotic twin intrauterine w/ EDC 08/23/2019. Referral made to [facility]. Flowsheet Date 09/18/2020 Morrissey Score Blood Edema Fundus Height Fundus Units Glucose Ketones Leukocytes Nitrite Labor Signs Protein Cervic Dilation Cervic Effacement Cervic Station Type Weight in lbs Pre/Post Dialysis Refused BP Diastolic BP Location Tested BP Systolic BP Type 68 110 sitting Fetus Heart Rate Present Fetus Movement Comments Menstrual History Last Menstrual Date Menses Monthly On Bcp Conception Prior Menses Frequency Hcg Plus Date Menarche Onset Age 0711/21/2019 true false Genetic Screening And Infection History Question Response Note Patient's Age Will Be 35 Yea rs Or Older At Estimated Date of Delivery false Thalassemia (Thai, Japanese, Mediterranean, Or Background): MCV < 80 false Neural Tube Defect (Meningom yelocele, Spina Bifida, Or Anencephaly) false Congenital Heart Defect false Down Syndrome false Marcus-Sachs (eg, Adventism, Cajun , Frisian-Young) false Alexandre Disease false Sickle Cell Disease Or Trait () false Hemophilia Or Other Blood Disorders false Muscular Dystrophy false Cystic Fibrosis false [place]'s Chorea false Mental Retardation/Autism false If Yes, Was Person Tested Fo r Fragile X? false Other Inherited Genetic Or C hromosomal Disorder false Maternal Metabolic Disorder (eg, Type 1 Diabetes, PKU) false Patient Or Baby's Father Had A Child With Defects Not Listed Above false Recurrent Loss, Or A Stillbirth false Medications (including Suppl ements, Vitamins, Herbs, OTC Drugs), Illicit/Recreational Drugs, Alcohol false If Yes, Agent(s) And Strength/Dosage false Any Other Genetic History false Live With Someone With TB Or Exposed To TB false Patient Or Partner Has Histo ry Of Genital Herpes false Rash Or Viral Illness Since Last Menstrual Period false History Of STD, Gonorrhea, C hlamydia, HPV, Syphilis true Gonorrhea (2018), Trichomona s (2015) Other Infection History false History of HIV false History of Hepatitis false Prior GBS-infected child false Plans and Education First Trimester Discussed Date Discussion Item Discussion Note Discuss ed By 01/25/2020 Anticipated course o f care [email or web address] 01/25/2020 Alcohol denies [email or web address] 01/25/2020 Intimate partner violence denies [email or web address] 01/25/2020 Environmental/work hazards j [email or web address] 01/25/2020 Screening for aneuploidy [email or web address] [email or web address] 01/25/2020 Nutrition counseling ; special diet; dietary precautions (mercury, listeriosis) [email or web address] 01/25/2020 Childbirth classes/h ospital facilities schedule of classes provided [email or web address] 01/25/2020 HIV and other routin e tests [email or web address] 01/25/2020 Risk factors identif ied by history [email or web address] 01/25/2020 Weight gain counseling 15-25 pounds [email or web address] 01/25/2020 Exercise [email or web address] 01/25/2020 Teratogens [email or web address] 01/25/2020 Use of any medicatio ns (including supplements, vitamins, herbs, or OTC drugs) [email or web address] 01/25/2020 plans to bottle feed [email or web address] 01/25/2020 Sexual activity [email or web address] 01/25/2020 Tobacco/smoking cess ation counseling (ask, advise, assess, assist, and arrange) denies [email or web address] 01/25/2020 Illicit/recreational drugs denies earlene [email or web address] 01/25/2020 Dental care dental consent provided shabnam aquino 01/25/2020 Travel [email or web address] 01/25/2020 Seat belt use [email or web address] 01/25/2020 Indications for ultrasonography [email or web address] 01/25/2020 Avoidance of saunas or hot tubs [email or web address] 01/25/2020 Toxoplasmosis precau tions (cats/raw meat) [email or web address] Second Trimester Discussed Date Discussion Item Discussion Note Discuss ed By Third Trimester Discussed Date Discussion Item Discussion Note Discuss ed By Delivery Information Delivery Date Delivery Type Labor Anesthesia Weeks Gestation Incision Type Labor Labor Length Hrs Delivered By Post Complications Tubal Sterilization Discharge Date Comments 1 Induce d Regional-Ep idural 38.1 false Carolann Reyna MD Hypertension false 08/11/2020 Discharge Information Feeding Method Contraceptive Method Maternal HG B and HCT Levels Bottle Ob Episode Information Episode Created Date Number of Fetuses Patient Bloodtype Patient rh Status Prepregnancy Weight lbs Domestic Partner Domestic Partner Phone Father Name Promotions Assistant Sales Marketing Status 02/27/20 15 1 CLOSED Fetus Data First Name Last Name Admitted to NICU Weight (g) Sex Living Outcome Pediatric Complications Fetus ID Race Codes Race Delivery Type 2891.64 9 F Full Term [id number] Vaginal Rogelio Calculation Initial Rogelio Date Initial Exam Date Initial Exam Provider Initial Ultrasound Date Last Menstrual Period Date Ultra Sound Weeks Gestation 0 Eighteen To Twenty Week Rogelio Update Ultra Sound Date Fundal Height At Umbil Quickening Date Ultra Sound Latest Weeks Gestation Final Rogelio Confirmed By Final Rogelio Confirmed Date Final Rogelio Date Ultra Sound Latest Days Gestation 0 0 Menstrual History Last Menstrual Date Menses Monthly On Bcp Conception Prior Menses Frequency Hcg Plus Date Menarche Onset Age Delivery Information Delivery Date Delivery Type Labor Anesthesia Weeks Gestation Incision Type Labor Labor Length Hrs Delivered By Post Complications Tubal Sterilization Discharge Date Comments 9 Regional-Ep idural 40 Discharge Information Feeding Method Contraceptive Method Maternal HG B and HCT Levels
--- OUTSIDE RECORDS SUMMARY | 2024-07-04 19:09 | XMS_ITS | Referral Summary ---
Author Organization [facility] [employer] Address [address] [facility] [place] [address] Care Team Providers Care Hl7 Interface Developer Name Role Phone El Daugherty MD Primary Care Provider [phone] Source Comments [facility],non-owned Affiliates and Associated Physician Practices is amultiple site organization consisting of ambulatory clinics and hospital sitesin [place], [place], [place] and [place]. This disclosure is being madepursuant to the Care Everywhere program and may not contain all information available regarding this patient. Last updated 18.[facility] Encounters Date Type Department Care Team Description 06/09/2024 Orders Only [facility] - Dermatology [address] [place] [phone] Anna Adrian MD Other psoriasis 06/05/2024 Travel 06/05/2024 4:10 PM [employer] ATTENDANT - 06/05/2024 11:59 PM [employer]PER[employer]OR [employer] ATTENDANT Hospital Encounter [facility] OP DRAW STATION [address] [place] [phone] Discharge Disposition: Home or Self Care 06/05/2024 3:40 PM SU[employer] ATTENDANT Office Visit [facility] - Dermatology [address] [place] [phone] Anna Adrian MD Psoriasis (Primary Dx); Encounter for long-term (current) use of high-risk medication 04/13/2024 Telephone [facility] - Dermatology [address] [facility], [place] [address] Monty Bustillos MD Follow-up 04/10/2024 Travel 04/10/2024 3:00 PM SUPER[employer] ATTENDANT Office Visit [facility] - Dermatology [facility] [place] [address] Anna Adrian MD Rash and other nonspecific skin eruption (Primary Dx) from Last 3 Months Allergies Active Allergy Reactions Criticality Noted Date [...] 08/16/2020 Gestational diabetes mellitus (GDM) in third [facility] 07/01/2020 Overview (07/22/2020): GCT 174, 2/4 abnormal on GTT at 32 weeks Assessment & Plan (08/01/2020 1:34 PM CDT): Did not bring logs P 1. Send logs weekly for review 2. NST 2x weekly 3. IOL date set , supervision, high-risk 05/11/2020 Overview (08/01/2020): Dated by 11w US - transfer of care to [facility] @25 week preg 27 pages scanned records in [facility] Jan 2020:O+/I/-/-, HIV neg, antibody neg, [...] Nausea and vomiting 02/24/2018 07/01/19 19 Immunizations Name Administration Dates Next Due Missionly primary monoval ent 12+ yr 0.3mL Purple [...] - pt already had tdap this ) Social History Tobacco Use Types Packs/Day Years [...] Mass Index 31.79 08/16/2020 2:58 PM CDT Functional Status Functional Status Response Date of Assess ment Is person deaf or have serious hearing difficult y? No 08/16/2020 Is person blind or have serious difficulty seein g? No 08/16/2020 Does person have serious dif ficulty walking/climbing stairs? No 08/16/2020 Does person have difficulty dressing/bathing? No 08/16/2020 Does person have difficulty doing errands alone? No 08/16/2020 Cognitive Status Response Date of Assessm ent Does person have difficulty concentrating/remembering/making decisions? No 08/16/2020 Plan of Treatment Upcoming Encounters Date Type Department Care Team (Late st Contact Info) Description 07/24/2024 3:00 PM CDT Office Visit [facility] - Family Medicine [address] [facility], [facility] [address] [place] [phone] Luisa Montero MD [address] [place] [address] 09/04/2024 3:40 PM CDT Office Visit [facility] - Dermatology [address] [place] [address], [place] [phone] Anna Adrian MD [address] [place], [place] [address] [phone] Goals Goal Patient Goal Type Associated Problems Recent Progress Patient-Stated? Author Medication Management General On track( 020 11:52 AM CDT) No Lis Adrian, ELSY Note: Expected end date: onoing Interventions: Take all medications as prescribed Let your doctor know right away about any changes in your medications Make sure to request a refill of your medication at least one week prior to your last dose Procedures Procedure Name Priority Date/Time Associated Diagnosis Comments DIFFERENTIAL MANUAL Routine 06/05/2024 4 :57 PM [employer] ATTENDANT Encounter for long-term (current) use of high-risk medication COMPREHENSIVE METABOLIC PANEL Routine 06/05/2024 4:57 PM SU[employer]OR [employer] ATTENDANT Encounter for long-term (current) use of high-risk medication CBC W AUTO DIFFERENTIAL Routine 06/05/19 4:57 PM SU[employer]OR [employer] ATTENDANT Encounter for long-term (current) use of high-risk medication HEPATITIS C AB SCREEN RFLX NAAT QUANT Routine 06/05/2024 4:57 PM SU[employer] ATTENDANT Encounter for long-term (current) use of high-risk medication QUANTIFERON-TB GOLD PLUS 4-TUBE Routine 06/05/2024 4:57 PM SUPER[employer]OR [employer]IGHT ATTENDANT Encounter for long-term (current) use of high-risk medication HEPATITIS B SURFACE ANTIGEN W RFLX CONFIRMATION Routine 06/05/2024 4:57 PM SUPERVISOR [employer]IGHT ATTENDANT Encounter for long-term (current) use of high-risk medication HEPATITIS B CORE ANTIBODY TOTAL Routine 06/05/2024 4:57 PM SUPERVISOR [employer] FLIGHT ATTENDANT Encounter for long-term (current) use of high-risk medication DE PUNCH BX SKIN SINGLE LESION Routine 04/10/2024 4:06 PM SUPER[employer]OR [employer] ATTENDANT Rash and other nonspecific skin eruption DERMATOPATHOLOGY Routine 04/10/2024 12:0 0 AM SU[employer] ATTENDANT Rash and other nonspecific skin eruption from Last 3 Months Results * HEPATITIS C AB SCREEN RFLX NAAT QUANT (06/05/2024 4:57 PM SUPERVISOR [employer] FLIGHT ATTENDANT) Hepatitis C Antibody Non-react isidoro Ram-reac tive 06/05/2024 6:06 PM SUPERVISOR AIRPLANE FLIGHT ATTENDANT [facility] Comment:Hepatitis C Antibody screen indicates no serologic evidence of past or current infection with Hepatitis C Virus. Patients with unexplained liver disease who are immunocompromised or suspected of having acute Hepatitis C infection may benefit from Nucleic Acid Test (KRISTA) for Hepatitis C Viral RNA to confirm Hepatitis C status. Blood BLOOD SPECIMEN / Unknown Lab Venipuncture / Unknown 06/05/2024 4:57 PM SUPER[employer]OR [employer]IGHT ATTENDANT 06/05/2024 5:04 PM SUPERVISOR [employer] FLIGHT ATTENDANT Anna Adrian MD LAB - CHEMISTRY STEPHANIE SHARMA [facility] [address] [place] [phone], [facility] [phone] * QUANTIFERON-TB GOLD PLUS 4-TUBE (06/05/2024 4:57 PM SUPERVISOR [employer]PL[employer] FLIGHT ATTENDANT) [facility] QuantiFERON Mitogen Minus NIL 9.56 IU/mL 06/08/2024 3:33 AM [facility] CM [employer] ([facility]) QuantiFERON Nil Value 0.45 IU/mL 06/08/2024 3:33 AM [facility] ([facility]) QuantiFERON Plus TB1 Minus NIL 0.00 <=0.34 IU/mL 06/08/2024 3:33 AM SUPERVISOR [employer] FLIGHT ATTENDANT SDFlexion [facility] ([facility]) QuantiFERON Plus TB2 Minus NIL 0.00 <=0.34 IU/mL 06/08/2024 3:33 AM [facility] ([facility]) QuantiFERON-TB Gold Plus Negative Negative 06/08/2024 3:33 AM [facility] ([facility]) Comment: INTERPRETIVE INFORMATION:Quantiferon TB Gold Plus Interferon [...] Mycobacterium tuberculosis Infection -- [place], 2010 (http://www.cdc.gov/mmwr/preview/mmwrhtml/ya2522d7.htm), for more information concerning test performance in low-prevalence populations and use in occupational screening. Performed By: [employer] [address] [place] [id number] Aesthetician: Milton Iraheta MD, PhD CLIA Number: [id number] Blood BLOOD SPECIMEN / Unknown Lab Venipuncture / Unknown 06/05/2024 4:57 PM [employer] ATTENDANT 06/05/2024 5:12 PM SUPER[employer]OR [employer] ATTENDANT Anna Adrian MD LAB - CHEMISTRY [facility] ([facility]) [address] * (ABNORMAL) DIFFERENTIAL MANUAL (06/05/2024 4:57 PM SUPERVISOR [employer]IGHT ATTENDANT) Neutrophil % 42 41 - 74 % 06/05/2024 6:03 PM [facility] Lymphocyte % 48(H) 17 - 47 % 06/05/2024 6:03 PM [facility] Monocyte % 8 3 - 11 % 06/05/2024 6:03 PM [facility] Eosinophil % 2 0 - 7 % 06/05/2024 6:03 PM [facility] Neutrophil Absolute 4.28 1.60 - 7.50 x10E9/L 06/05/2024 6:03 PM [facility] Lymphocyte Absolute 4.90(H) 1.00 - 4.40 x10E9/L 06/05/2024 6:03 PM [facility] Monocyte Absolute 0.82 0.15 - 1.00 x10E9/L 06/05/2024 6:03 PM [facility] Eosinophil Absolute 0.20 0.00 - 0.60 x10E9/L 06/05/2024 6:03 PM [facility] RBC Morphology REVIEWED 06/05/2024 6:03 PM [facility] Schistocytes FEW(A) (none) 06/05/2024 6:03 PM [facility] Blood BLOOD SPECIMEN / Unknown Lab Venipuncture / Unknown 06/05/2024 4:57 PM [employer] ATTENDANT 06/05/2024 5:17 PM SUPERVISOR [employer] ATTENDANT Anna Adrian MD LAB - HEMATOLOGY ORD ERABLES [facility] [address] [place] [address], [facility] [phone] * CBC WITH DIFFERENTIAL (06/05/2024 4:57 PM SUPERVISOR [employer] FL[employer] ATTENDANT) Pathologist [facility] WBC 10.2 4.0 - 10.7 x10E9/L 06/05/2024 6:03 PM [facility] RBC Count 4.28 3.90 - 5.20 x10E12/L 06/05/2024 6:03 PM [facility] Hemoglobin 11.9 11.9 - 15.8 g/dL 06/05/2024 6:03 PM [facility] Hematocrit 37.2 34.8 - 46.1 % 06/05/2024 6:03 PM [facility] MCV 86.9 80.0 - 98.0 fL 06/05/2024 6:03 PM [facility] MCH 27.8 26.7 - 33.6 pg 06/05/2024 6:03 PM [facility] MCHC 32.0 31.7 - 36.3 g/dL 06/05/2024 6:03 PM [facility] RDW-CV 12.9 11.3 - 14.8 % 06/05/2024 6:03 PM [facility] Platelet Count 348 150 - 420 x10E9/L 06/05/2024 6:03 PM [facility] MPV 10.5 7.8 - 11.4 fL 06/05/2024 6:03 PM [facility] Blood BLOOD SPECIMEN / Unknown Lab Venipuncture / Unknown 06/05/2024 4:57 PM SU[employer] ATTENDANT 06/05/2024 5:17 PM [employer] ATTENDANT Anna Adrian MD LAB - HEMATOLOGY ORD ERABLES [address] [address], [facility] [phone] * (ABNORMAL) COMPREHENSIVE METABOLIC PANEL (06/05/2024 4:57 PM SUPERVISOR [employer] ATTENDANT) BUN 10 7 - 26 mg/dL 06/05/2024 5:51 PM [facility] Creatinine 0.66 0.56 - 0.96 mg/dL 06/05/2024 5:51 PM [facility] Sodium 139 136 - 145 mmol/L 06/05/2024 5:51 PM [facility] Potassium 3.7 3.5 - 4.5 mmol/L 06/05/2024 5:51 PM [facility] Chloride 108(H) 98 - 107 mmol/L 06/05/2024 5:51 PM [facility] CO2 23 22 - 29 mmol/L 06/05/2024 5:51 PM [facility] Glucose 83 70 - 99 mg/dL 06/05/2024 5:51 PM [facility] Calcium 8.9 8.4 - 10.2 mg/dL 06/05/2024 5:51 PM [facility] Protein Total 7.1 6.0 - 8.3 g/dL 06/05/2024 5:51 PM [facility] Albumin 3.8 3.4 - 5.0 g/dL 06/05/2024 5:51 PM [facility] Bilirubin Total 0.3 0.2 - 1.2 mg/dL 06/05/2024 5:51 PM [facility] Alkaline Phosphatase 99 40 - 150 U/L 06/05/2024 5:51 PM [facility] ALT 15 5 - 55 U/L 06/05/2024 5:51 PM [facility] AST 13 5 - 34 U/L 06/05/2024 5:51 PM [facility] Anion Gap 8 6 - 16 06/05/2024 5:51 PM [facility] BUN/Creatinine Ratio 15 7 - 23 06/05/2024 5:51 PM [facility] Osmolality Calculated 286 275 - 295 mOsm/kg 06/05/2024 5:51 PM [facility] Albumin/Globulin Ratio 1.2 1.1 - 2.3 06/05/2024 5:51 PM [facility] eGFR by CKD-EPI >90 >=90 mL/min/1.7 3 m2 06/05/2024 5:51 PM [facility] Blood BLOOD SPECIMEN / Unknown Lab Venipuncture / Unknown 06/05/2024 4:57 PM [employer] ATTENDANT 06/05/2024 5:17 PM SUPERVISOR [employer] ATTENDANT Anna Adrian MD LAB - CHEMISTRY ORDNadeen SHARMA [facility] Organization Address City/State/ZIP Co de Phone Number [address] [address], [place] [phone] * HEPATITIS B CORE ANTIBODY TOTAL (06/05/2024 4:57 PM SUPERVISOR [employer] FLIGHT ATTENDANT) HBc Antibody Total Non-reacti ve Non-reacti ve 06/05/2024 6:06 PM SUPERVISOR [employer]IGHT ATTENDANT [facility] Blood BLOOD SPECIMEN / Unknown Lab Venipuncture / Unknown 06/05/2024 4:57 PM SUPER[employer]OR [employer]IGHT ATTENDANT 06/05/2024 5:04 PM SUPERVISOR [employer] ATTENDANT Anna Adrian MD LAB - CHEMISTRY STEPHANIE SHARMA [address] [address], [place] [phone] * HEPATITIS B SURFACE ANTIGEN W RFLX CONFIRMATION (06/05/2024 4:57 PM SUPERVISOR [employer] ATTENDANT) Hepatitis B Virus Surface Antigen Non-reacti ve Non-reacti ve 06/05/2024 6:06 PM SUPERVISOR [employer]IGHT ATTENDANT [facility] Blood BLOOD SPECIMEN / Unknown Lab Venipuncture / Unknown 06/05/2024 4:57 PM SUPER[employer]OR [employer] ATTENDANT 06/05/2024 5:04 PM SUPER[employer]OR [employer] ATTENDANT Anna Adrian MD LAB - CHEMISTRY STEPHANIE SHARMA [address] [address], [place] [phone] * DE PUNCH BX SKIN SINGLE LESION (04/10/2024 4:06 PM SUPERVISOR [employer] FLIGHT ATTENDANT) Narrative Anna Adrian MD - 04/10/2024 4:06 PM SUPER[employer]OR [employer] ATTENDANT Monty Bustillos MD 04/10/2024 4:06 PM Risks, benefits and alternatives to punch biopsy were discussed with the patient, including risks of infection, scar (100% chance), the possibility of non-diagnostic reading, and the potential need for further testing or treatment, including surgical. Patient expressed understanding and verbal consent was obtained. Location: [facility] flank Punch biopsy: 4mm Skin prep: Alcohol Anesthesia: 1% lidocaine with epinephrine Closure: 4-0 nylon suture Dressing and wound care discussed. Patient agrees to phone call for results and message if not available. Monty Bustillos MD [facility] Dermatology Resident Anna Adrian MD PROCEDURE/MINOR SURG ICAL ORDERABLES * DERMATOPATHOLOGY (04/10/2024 12:00 AM [facility]) Case Report Dermatopathology Report Case: [id number] Authorizing Provider: Anna Adrian MD Collected: 04/10/2024 12:00 AM Ordering Location: [facility] - Received: 04/10/2024 05:00 PM Dermatology Pathologist: Catherine Morris MD Specimen: Skin, right flank 4:31 PM [facility] DERMATOPATHOLOGY LABORATORY Final Diagnosis Specimen A. 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 The specimen consists of a punch biopsy measuring 4x4x6 mm. Jar 0. 4:31 PM [facility] DERMATOPATHOLOGY LABORATORY Microscopic Description Specimen A. SKIN, [...] clinical impression of guttate psoriasis. 4:31 PM [facility] DERMATOPATHOLOGY LABORATORY Disclaimer An external and internal positive and negative controls are appropriate for the histochemical, immunohistochemical and immunofluorescence stain(s) in this case (if any), except where stated explicitly. The performance characteristics of the stain(s) cited in this report were developed and its performance characteristic determined by the Dermatopathology Laboratory at [facility], directed by Dr. Michoacano Ayala. These tests need not be, and therefore are not, approved by the [place] Food and Drug Administration. The tests are used for clinical purposes. Billing Codes Specimen Charges Stain Charges 48230 1 06507 52611 1 1 4 4:31 PM [employer] ATTENDANT DERMATOPATHOLOGY LABORATORY Embedded Images 4:31 PM [employer]PER[employer]OR [employer] ATTENDANT DERMATOPATHOLOGY LABORATORY Pathology/Cytolog y TISSUE SPECIMEN FROM SKIN / Unknown 04/10/2024 04/10/2024 5:00 PM SUPER[employer] ATTENDANT Anna Adrian MD LAB - PATHOLOGY/CYTO LOGY ORDERABLES DERMATOPATHOLOGY LABORATORY [facility] - Department of Dermatology [address], [address] [phone] from Last 3 Months Advance Directives * Full Code (Latest Code Status on File) Date Activated Date Inactivated Comments 08/16/2020 3:05 PM 08/17/2020 9:05 PM * Full Code Date Activated Date Inactivated Comments 08/08/2020 9:24 AM 08/11/2020 2:14 PM * Full Code Date Activated Date Inactivated Comments 06/26/2020 6:22 PM 06/27/2020 12:57 AM Care Teams Hl7 Interface Developer Relationship Specialty Start Date End Date El Daugherty MD [address] [place] [phone] [facility] - General 02/16/19
--- NOTE | 2024-07-04 19:10 | ECG_ITS ---
Test Date: 2024-07-04 19:22:37 Measurements Intervals [place] Rate: 81 P: 24 OK: 155 QRS: 45 QRSD: 86 T: 22 QT: 349 QTc: 406 Interpretive Statements SINUS RHYTHM No previous ECG available for comparison Electronically Signed On 07-05-2024 13:23:32 CDT by Rhys Rayo M.D.
[2024-07-04 19:13] VITALS: BP 132/72; PULSE 88; RESP 16; TEMP 36.7; O2SAT 100
[2024-07-04 19:43] LABS: Basophils Percent Auto 0.3 % (0.2-1.2); Eosinophils Absolute Auto 0.1 K/mm3 (0-0.3); Hematocrit 37.7 % (37.0-47.0); Hemoglobin 11.8 g/dL (12.0-15.0); Immature Granulocyte Absolute 0.03 K/mm3 (0.00-0.031); Immature Granulocyte Percent A 0.3 % (0-0.5); Lymphocytes Absolute Auto 4.04 K/mm3 (0.9-3.2); Lymphocytes Percent Auto 38.5 % (18.3-44.2); Mean Corpuscular HGB Conc 31.3 g/dl (32-36); Mean Corpuscular Hemoglobin 27.8 pg (26-34); Mean Corpuscular Volume 88.9 fl (80-100); Mean Platelet Volume 10.4 fl (7.4-10.4); Monocytes Absolute Auto 0.9 K/mm3 (0.1-0.6); Neutrophils Absolute Auto 5.3 K/mm3 (1.3-6.7); Neutrophils Percent Auto 50.9 % (45.5-73.1); Platelet Count Result 315 k/mm3 (150-375); Red Blood Count 4.24 M/mm3 (4.2-5.4); Red Cell Distribution Width 13.3 % (11.5-14.5); White Blood Count 10.5 K/mm3 (4.5-10.0)
[2024-07-04 19:52] LABS: Alanine Aminotransferase 21 U/L (6-35); Albumin Level 4.3 g/dL (3.5-5.1); Alkaline Phosphatase 103 U/L (38-126); Anion Gap 12 mmol/L (4-12); Aspartate Amino Transferase 18 U/L (14-36); Bilirubin,Total 0.3 mg/dL (0.2-1.3); Blood Urea Nitrogen 12 mg/dL (7-17); Calcium 9.1 mg/dL (8.4-10.2); Carbon Dioxide 23 mmol/L (22-30); Chloride 104 mmol/L (98-107); Estimated CRCL calculation 97 ml/min; Estimated Glomerular Filt Rate > 60; Glucose 100 mg/dL (65-110); Lipase 90 U/L (23-300); Potassium 3.8 mmol/L (3.4-5.0); Sodium 139 mmol/L (137-145)
[2024-07-04 19:54] LABS: Prothrombin Time 13.4 Seconds (11.1-14.7)
[2024-07-04 19:55] LABS: Partial Thromboplastin Time 27.2 Seconds (22.3-36.8)
[2024-07-04 20:04] LABS: Troponin I < 0.012 ng/mL (0.000-0.034)
--- NOTE | 2024-07-04 22:16 | ECG_ITS ---
Test Date: 2024-07-04 22:27:08 Measurements Intervals [place] Rate: 72 P: 57 [place]: 172 QRS: 62 QRSD: 88 T: 38 QT: 345 QTc: 380 Interpretive Statements SINUS RHYTHM Compared to ECG 07/04/2024 19:22:37 No significant changes Electronically Signed On 07-05-2024 13:30:34 CDT by Rhys Rayo M.D.
--- NOTE | 2024-07-04 22:53 | ED.ARRPALP ---
HPI - Arrhythmia/Palpitations General Chief Complaint: Arrhythmia/Palpitations Stated Complaint: heart palpitations 2 weeks Time Seen by Provider: 07/04/24 22:21 Source: patient Mode of arrival: ambulatory Limitations: no limitations History of Present Illness HPI narrative: This is a 34-year-old female who presents to the ED for chief complaint of palpitations intermittently for the past 2 weeks. Patient states that she will get random episodes of a racing heartbeat feeling. States that this is usually happening at night when she tries to go to sleep. States that today she started developing some pains in the left-sided chest, left jaw. Denies any cardiac history. Denies association with nausea, vomiting, shortness of breath or syncope. Denies leg swelling, palpitations, recent hospitalization or immobilization. Denies VTE history. States she is not taking any estrogen. Denies exertional component to chest pain. Denies recent illness, fevers, chills, cough. Related Data Allergies Allergy/AdvReac Type Severity Reaction Status Date / Time amoxicillin Allergy Unknown Hives / Verified 07/04/24 19:19 [place] Review of Systems Review of Systems: All systems as dictated in [facility] Social History Social History Gender identity (if verbalized by the patient): Female Exam Narrative: GENERAL: Well-appearing, well-nourished, and in no acute distress. HEAD: Normocephalic, atraumatic. EYES: PERRLA and EOMI. ENT: Nares clear, no rhinorrhea or epistaxis. Mucous membranes moist. Oropharynx without tonsillar hypertrophy exudate or other lesions. NECK: Supple. No adenopathy or masses. CHEST: No respiratory distress. Clear to auscultation. No wheezes rales or rhonchi HEART: Regular rate and rhythm. No murmur heard. Normal peripheral pulses. ABDOMEN: Soft, nontender, nondistended, normal active bowel sounds. MSK: Normal range of motion. No edema. SKIN: Warm, dry, no rash. NEURO: Alert and oriented x4. No focal deficits. PSYCH: Normal mood and affect. Course Vital Signs Vital signs: Vital Signs Temperature 98.1 F 07/04/24 19:13 Pulse Rate 88 07/04/24 19:13 Respiratory Rate 16 07/04/24 19:13 Blood Pressure 132/72 07/04/24 19:13 Pulse Oximetry 100 07/04/24 19:13 Oxygen Delivery Room Air 07/04/24 19:13 Temperature 98.1 F 07/04/24 19:13 Pulse Rate 80 07/04/24 23:44 Respiratory Rate 20 07/04/24 23:44 Blood Pressure 123/80 07/04/24 23:44 Pulse Oximetry 100 07/04/24 23:44 Oxygen Delivery Room Air 07/04/24 19:13 MDM - Arrhythmia/Palpitations MDM Narrative Medical decision making narrative: This is a 34-year-old female who presents to the ED for chief complaint of palpitations. Vitals are normal. Exam is unremarkable. EKG shows normal sinus rhythm. Troponin is negative. Lab work is overall unremarkable. No dysrhythmia detected on patient's monitor today. Chest x-ray is normal. Presentation consistent with palpitations of unknown etiology. Patient will be discharged in stable condition. Supportive measures discussed and return precautions given. Patient is understanding and agreeable with plan for discharge with PCP follow-up. Lab Data 07/04/24 19:30 07/04/24 19:30 Labs: Lab Results 07/04/24 07/04/24 Range/Units 19:30 22:23 WBC 10.5 H (4.5-10.0) K/mm3 RBC 4.24 (4.2-5.4) M/mm3 Hgb 11.8 L D (12.0-15.0) g/dL Hct 37.7 (37.0-47.0) % MCV 88.9 (80-100) fl MCH 27.8 (26-34) pg MCHC 31.3 L (32-36) g/dl RDW 13.3 (11.5-14.5) % Plt Count 315 (150-375) k/mm3 MPV 10.4 (7.4-10.4) fl Immature Gran % (Auto) 0.3 (0-0.5) % Neut % (Auto) 50.9 (45.5-73.1) % Lymph % (Auto) 38.5 (18.3-44.2) % [place] % (Auto) 9.0 H (2.6-8.5) % Eos % (Auto) 1.0 (0-4.4) % Baso % (Auto) 0.3 (0.2-1.2) % Lymph # (Auto) 4.04 H (0.9-3.2) K/mm3 [place] # (Auto) 0.9 H (0.1-0.6) K/mm3 Eos # (Auto) 0.1 (0-0.3) K/mm3 Baso # (Auto) 0.0 (0.0-0.1) K/mm3 Abs Immat Gran (auto) 0.03 (0.00-0.031) K/mm3 Absolute Neuts (auto) 5.3 (1.3-6.7) K/mm3 Absolute Nucleated RBC 0.000 (0.0-0.012) K/mm3 Nucleated RBC % 0.0 (0.0-0.2) % PT 13.4 (11.1-14.7) Seconds INR 1.0 APTT 27.2 (22.3-36.8) Seconds Sodium 139 (137-145) mmol/L Potassium 3.8 (3.4-5.0) mmol/L Chloride 104 (98-107) mmol/L Carbon Dioxide 23 (22-30) mmol/L Anion Gap 12 (4-12) mmol/L BUN 12 (7-17) mg/dL Creatinine 0.80 (0.7-1.0) mg/dL Estim Creat Clear Calc 97 ml/min Estimated GFR > 60 (59 - ) Glucose 100 (65-110) mg/dL Calcium 9.1 (8.4-10.2) mg/dL Total Bilirubin 0.3 (0.2-1.3) mg/dL AST 18 (14-36) U/L ALT 21 (6-35) U/L Alkaline Phosphatase 103 (38-126) U/L Troponin I < 0.012 < 0.012 (0.000-0.034) ng/mL Total Protein 8.0 (6.3-8.2) g/dL Albumin 4.3 (3.5-5.1) g/dL Lipase 90 (23-300) U/L Discharge Plan Discharge Clinical Impression: Palpitations Patient Disposition: Home, Self-Care Condition: Stable Instructions: Antibiotic Form Additional Instructions: Exam and imaging today are reassuring overall. Follow-up with your PCP closely on this issue. If you have any new or worsening symptoms please return to the ER for further evaluation. Patient Language: [place] Follow-up/Referrals: Willow,El Parr MD [Primary Care Provider] - Time of Disposition: 23:27
[2024-07-04 22:56] LABS: Troponin I < 0.012 ng/mL (0.000-0.034)
--- OUTSIDE RECORDS SUMMARY | 2024-07-04 23:02 | XMS_ITS | Clinical Summary ---
Author Organization [facility] [employer] Address [address] [place] [address] Care Team Providers Care Valve And Regulator Repairer Name Role Phone El Daugherty MD Primary Care Provider [phone] Source Comments [facility],non-owned Affiliates and Associated Physician Practices is amultiple site organization consisting of ambulatory clinics and hospital sitesin [place], [place], [place] and [place]. This disclosure is being madepursuant to the Care Everywhere program and may not contain all information available regarding this patient. Last updated 18.[facility] [employer] Allergies Active Allergy Reactions Criticality Noted Date [...] 11w US - transfer of care to [facility] @25 week preg 27 pages scanned [...] Orders Only [facility] - Dermatology [address] [place] [phone] Anna Adrian MD Other psoriasis 06/05/2024 4:10 PM MATCHER OFFBEARER - 06/05/2024 11:59 PM MATCHER OFFBEARER Hospital Encounter [facility] OP DRAW STATION [address] [place] [phone] Discharge Disposition: Home or Self Care 06/05/2024 3:40 PM MATCHER OFFBEARER Office Visit [facility] - Dermatology [address] [place] [phone] Anna Adrian MD Psoriasis (Primary Dx); Encounter for long-term (current) use of high-risk medication 06/05/2024 Travel 04/13/2024 Telephone [facility] - Dermatology [address] [place] [phone] Monty Bustillos MD Follow-up 04/10/2024 3:00 PM MATCHER OFFBEARER Office Visit [facility] - Dermatology [address] [place] [phone] Anna Adrian MD Rash and other nonspecific [...] Description 07/24/2024 3:00 PM CDT Office Visit [facility] - Family Medicine [address] [facility], [facility] [address] [place] [phone] Luisa Montero MD [address] [place] [address] 09/04/2024 3:40 PM CDT Office Visit [facility] - Dermatology [facility] [facility], [place] [phone] Anna Adrian MD [facility] [place] [facility] [place] [phone] Health Maintenance Due Date Last Done Comments [...] DIFFERENTIAL MANUAL Routine 06/05/2024 4 :57 PM MATCHER OFFBEARER Encounter for long-term (current) use of high-risk medication COMPREHENSIVE METABOLIC PANEL Routine 06/05/2024 4:57 PM MATCHER OFFBEARER Encounter for long-term (current) use of high-risk medication CBC W AUTO DIFFERENTIAL Routine 06/05/19 4:57 PM MATCHER OFFBEARER Encounter for long-term (current) use of high-risk medication HEPATITIS C AB SCREEN RFLX NAAT QUANT Routine 06/05/2024 4:57 PM MATCHER OFFBEARER Encounter for long-term (current) use of high-risk medication QUANTIFERON-TB GOLD PLUS 4-TUBE Routine 06/05/2024 4:57 PM MATCHER OFFBEARER Encounter for long-term (current) use of high-risk medication HEPATITIS B SURFACE ANTIGEN W RFLX CONFIRMATION Routine 06/05/2024 4:57 PM MATCHER OFFBEARER Encounter for long-term (current) use of high-risk medication HEPATITIS B CORE ANTIBODY TOTAL Routine 06/05/2024 4:57 PM MATCHER OFFBEARER Encounter for long-term (current) use of high-risk medication AR PUNCH BX SKIN SINGLE LESION Routine 04/10/2024 4:06 PM MATCHER OFFBEARER Rash and other nonspecific skin eruption DERMATOPATHOLOGY Routine 04/10/2024 12:0 0 AM MATCHER OFFBEARER Rash and other nonspecific skin eruption from Last 3 Months Results * HEPATITIS C AB SCREEN RFLX NAAT QUANT (06/05/2024 4:57 PM MATCHER OFFBEARER) Hepatitis C Antibody Non-react isidoro Non-reac tive 06/05/2024 6:06 PM MATCHER OFFBEARER [facility] Comment:Hepatitis C Antibody screen indicates no serologic evidence of past or current infection with Hepatitis C Virus. Patients with unexplained liver disease who are immunocompromised or suspected of having acute Hepatitis C infection may benefit from Nucleic Acid Test (KRISTA) for Hepatitis C Viral RNA to confirm Hepatitis C status. Blood BLOOD SPECIMEN / Unknown Lab Venipuncture / Unknown 06/05/2024 4:57 PM MATCHER OFFBEARER 06/05/2024 5:04 PM MATCHER OFFBEARER Anna Adrian MD LAB - CHEMISTRY STEPHANIE SHARMA [facility] Organization Address City/State/ZIP Co de Phone Number [address] [id number] [phone] * QUANTIFERON-TB GOLD PLUS 4-TUBE (06/05/2024 4:57 PM MATCHER OFFBEARER) [facility] QuantiFERON Mitogen Minus NIL 9.56 IU/mL 06/08/2024 3:33 AM MATCHER OFFBEARER [facility] ([facility]) QuantiFERON Nil Value 0.45 IU/mL 06/08/2024 3:33 AM MATCHER OFFBEARER [facility]) QuantiFERON Plus TB1 Minus NIL 0.00 <=0.34 IU/mL 06/08/2024 3:33 AM MATCHER OFFBEARER [facility]) QuantiFERON Plus TB2 Minus NIL 0.00 <=0.34 IU/mL 06/08/2024 3:33 AM MATCHER OFFBEARER [facility]) QuantiFERON-TB Gold Plus Negative Negative 06/08/2024 3:33 AM MATCHER OFFBEARER [facility] ([facility]) Comment: INTERPRETIVE INFORMATION:Quantiferon TB Gold Plus [...] Mycobacterium tuberculosis Infection -- [place], 2010 (http://www.cdc.gov/mmwr/preview/mmwrhtml/xc7857a2.htm), for more information concerning test performance in low-prevalence populations and use in occupational screening. Performed By: [facility] [address] [place] [address] Sales Operations Lead: Milton Iraheta MD, PhD CLIA Number: [id number] Blood BLOOD SPECIMEN / Unknown Lab Venipuncture / Unknown 06/05/2024 4:57 PM MATCHER OFFBEARER 06/05/2024 5:12 PM MATCHER OFFBEARER Anna Adrian MD LAB - CHEMISTRY STEPHANIE SHARMA [facility] Organization Address City/State/ZIP Co de Phone Number [facility] ([facility]) [address] [place] [address], [facility] * (ABNORMAL) DIFFERENTIAL MANUAL (06/05/2024 4:57 PM MATCHER OFFBEARER) Neutrophil % 42 41 - 74 % 06/05/2024 6:03 PM [facility] Lymphocyte % 48(H) 17 - 47 % 06/05/2024 6:03 PM [facility] Monocyte % 8 3 - 11 % 06/05/2024 6:03 PM [facility] Eosinophil % 2 0 - 7 % 06/05/2024 6:03 PM [facility] Neutrophil Absolute 4.28 1.60 - 7.50 x10E9/L 06/05/2024 6:03 PM [facility] Lymphocyte Absolute 4.90(H) 1.00 - 4.40 x10E9/L 06/05/2024 6:03 PM [facility] Monocyte Absolute 0.82 0.15 - 1.00 x10E9/L 06/05/2024 6:03 PM [facility] Eosinophil Absolute 0.20 0.00 - 0.60 x10E9/L 06/05/2024 6:03 PM [facility] RBC Morphology REVIEWED 06/05/2024 6:03 PM [facility] Schistocytes FEW(A) (none) 06/05/2024 6:03 PM [facility] Blood BLOOD SPECIMEN / Unknown Lab Venipuncture / Unknown 06/05/2024 4:57 PM MATCHER OFFBEARER 06/05/2024 5:17 PM MATCHER OFFBEARER Anna Adrian MD LAB - HEMATOLOGY ORD ERABLES [facility] [address] [place] [address], [facility] [phone] * CBC WITH DIFFERENTIAL (06/05/2024 4:57 PM [facility]) WBC 10.2 4.0 - 10.7 x10E9/L 06/05/2024 6:03 PM [facility] RBC Count 4.28 3.90 - 5.20 x10E12/L 06/05/2024 6:03 PM [facility] Hemoglobin 11.9 11.9 - 15.8 g/dL 06/05/2024 6:03 PM [facility] Hematocrit 37.2 34.8 - 46.1 % 06/05/2024 6:03 PM [facility] MCV 86.9 80.0 - 98.0 fL 06/05/2024 6:03 PM [facility] MCH 27.8 26.7 - 33.6 pg 06/05/2024 6:03 PM [facility] MCHC 32.0 31.7 - 36.3 g/dL 06/05/2024 6:03 PM [facility] RDW-CV 12.9 11.3 - 14.8 % 06/05/2024 6:03 PM [facility] Platelet Count 348 150 - 420 x10E9/L 06/05/2024 6:03 PM [facility] MPV 10.5 7.8 - 11.4 fL 06/05/2024 6:03 PM [facility] Blood BLOOD SPECIMEN / Unknown Lab Venipuncture / Unknown 06/05/2024 4:57 PM MATCHER OFFBEARER 06/05/2024 5:17 PM MATCHER OFFBEARER Anna Adrian MD LAB - HEMATOLOGY ORD ERABLES [facility] [address] [place] [address], [facility] [phone] * (ABNORMAL) COMPREHENSIVE METABOLIC PANEL (06/05/2024 4:57 PM MATCHER OFFBEARER) BUN 10 7 - 26 mg/dL 06/05/2024 5:51 PM [facility] Creatinine 0.66 0.56 - 0.96 mg/dL 06/05/2024 5:51 PM [facility] Sodium 139 136 - 145 mmol/L 06/05/2024 5:51 PM [facility] Potassium 3.7 3.5 - 4.5 mmol/L 06/05/2024 5:51 PM [facility] Chloride 108(H) 98 - 107 mmol/L 06/05/2024 5:51 PM [facility] CO2 23 22 - 29 mmol/L 06/05/2024 5:51 PM [facility] Glucose 83 70 - 99 mg/dL 06/05/2024 5:51 PM [facility] Calcium 8.9 8.4 - 10.2 mg/dL 06/05/2024 5:51 PM [facility] Protein Total 7.1 6.0 - 8.3 g/dL 06/05/2024 5:51 PM [facility] Albumin 3.8 3.4 - 5.0 g/dL 06/05/2024 5:51 PM [facility] Bilirubin Total 0.3 0.2 - 1.2 mg/dL 06/05/2024 5:51 PM [facility] Alkaline Phosphatase 99 40 - 150 U/L 06/05/2024 5:51 PM [facility] ALT 15 5 - 55 U/L 06/05/2024 5:51 PM [facility] AST 13 5 - 34 U/L 06/05/2024 5:51 PM [facility] Anion Gap 8 6 - 16 06/05/2024 5:51 PM [facility] BUN/Creatinine Ratio 15 7 - 23 06/05/2024 5:51 PM [facility] Osmolality Calculated 286 275 - 295 mOsm/kg 06/05/2024 5:51 PM [facility] Albumin/Globulin Ratio 1.2 1.1 - 2.3 06/05/2024 5:51 PM [facility] eGFR by CKD-EPI >90 >=90 mL/min/1.7 3 m2 06/05/2024 5:51 PM [facility] Blood BLOOD SPECIMEN / Unknown Lab Venipuncture / Unknown 06/05/2024 4:57 PM MATCHER OFFBEARER 06/05/2024 5:17 PM MATCHER OFFBEARER Anna Adrian MD LAB - CHEMISTRY STEPHANIE SHARMA [address] [address], [facility] [phone] * HEPATITIS B CORE ANTIBODY TOTAL (06/05/2024 4:57 PM MATCHER OFFBEARER) HBc Antibody Total Non-reacti ve Non-reacti ve 06/05/2024 6:06 PM MATCHER OFFBEARER [facility] Blood BLOOD SPECIMEN / Unknown Lab Venipuncture / Unknown 06/05/2024 4:57 PM MATCHER OFFBEARER 06/05/2024 5:04 PM MATCHER OFFBEARER Anna Adrian MD LAB - CHEMISTRY STEPHANIE SHARMA [address] [address], [place] [phone] * HEPATITIS B SURFACE ANTIGEN W RFLX CONFIRMATION (06/05/2024 4:57 PM MATCHER OFFBEARER) Hepatitis B Virus Surface Antigen Non-reacti ve Non-reacti ve 06/05/2024 6:06 PM MATCHER OFFBEARER [facility] Blood BLOOD SPECIMEN / Unknown Lab Venipuncture / Unknown 06/05/2024 4:57 PM MATCHER OFFBEARER 06/05/2024 5:04 PM MATCHER OFFBEARER Anna Adrian MD LAB - CHEMISTRY STEPHANIE SHARMA [facility] Organization Address City/State/ZIP Co de Phone Number [facility] [address] [place] [address], [facility] [phone] * AR PUNCH BX SKIN SINGLE LESION (04/10/2024 4:06 PM MATCHER OFFBEARER) Narrative Anna Adrian MD - 04/10/2024 4:06 PM MATCHER OFFBEARER Monty Bustillos MD 04/10/2024 4:06 PM Risks, benefits and alternatives to punch biopsy were discussed with the patient, including risks of infection, scar (100% chance), the possibility of non-diagnostic reading, and the potential need for further testing or treatment, including surgical. Patient expressed understanding and verbal consent was obtained. Location: [facility] flank Punch biopsy: 4mm Skin prep: Alcohol Anesthesia: 1% lidocaine with epinephrine Closure: 4-0 nylon suture Dressing and wound care discussed. Patient agrees to phone call for results and message if not available. Monty Bustillos MD [facility] Dermatology Resident Anna Adrian MD PROCEDURE/MINOR SURG ICAL ORDERABLES * DERMATOPATHOLOGY (04/10/2024 12:00 AM MATCHER OFFBEARER) Case Report Dermatopathology Report Case: [id number] Authorizing Provider: Anna Adrian MD Collected: 04/10/2024 12:00 AM Ordering Location: [facility] - Received: 04/10/2024 05:00 PM Dermatology Pathologist: Catherine Morris MD Specimen: Skin, right flank 4:31 PM [facility] DERMAT[facility]ORATORY Final Diagnosis Specimen A. 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 The specimen consists of a punch biopsy measuring 4x4x6 mm. Jar 0. 4 4:31 PM [facility] DERMATOPATHOLOGY [facility]ORATORY Microscopic Description Specimen A. SKIN, [...] impression of guttate psoriasis. 4 4:31 PM [facility] DERMATOPATHOLOGY [facility]ORATORY Disclaimer An external and internal positive and negative controls are appropriate for the histochemical, immunohistochemical and immunofluorescence stain(s) in this case (if any), except where stated explicitly. The performance characteristics of the stain(s) cited in this report were developed and its performance characteristic determined by the Dermatopathology Laboratory at [facility], directed by Dr. Michoacano Ayala. These tests need not be, and therefore are not, approved by the [place] Food and Drug Administration. The tests are used for clinical purposes. Billing Codes Specimen Charges Stain Charges 46563 1 [id number] 1 1 4 4:31 PM [facility] DERMATOPATHOLOGY [facility]ORATORY Embedded Images 4 4:31 PM [facility] DERMATOPATH[facility]Y [facility]ORY Pathology/Cytolog y TISSUE SPECIMEN FROM SKIN / Unknown 04/10/2024 04/10/2024 5:00 PM MATCHER OFFBEARER Anna Adrian MD LAB - PATHOLOGY/CYTO LOGY ORDERABLES DERMATOPATHOLOGY LABORATORY [facility] - Department of Dermatology [facility] Medicine [address] [place] [address], [address] [phone] from Last 3 Months Advance Directives * Full Code (Latest Code Status on File) Date Activated Date Inactivated Comments 08/16/2020 3:05 PM 08/17/2020 9:05 PM * Full Code Date Activated Date Inactivated Comments 08/08/2020 9:24 AM 08/11/2020 2:14 PM * Full Code Date Activated Date Inactivated Comments 06/26/2020 6:22 PM 06/27/2020 12:57 AM Care Teams Valve And Regulator Repairer Relationship Specialty Start Date End Date El Daugherty MD [address] [place] [address] [phone] PCP - General 02/16/19
--- OUTSIDE RECORDS SUMMARY | 2024-07-04 23:02 | XMS_ITS | Referral Summary ---
Author Organization [facility] [employer] Address [address] [place] [address] Care Team Providers Care Neonatal Intensive Care Unit Nurse Name Role Phone El Daugherty MD Primary Care Provider [phone] Source Comments [facility],non-owned Affiliates and Associated Physician Practices is amultiple site organization consisting of ambulatory clinics and hospital sitesin [place], [place]. This disclosure is being madepursuant to the Care Everywhere program and may not contain all information available regarding this patient. Last updated 18.[facility] Encounters Date Type Department Care Team Description 06/09/2024 Orders Only [facility] - Dermatology [address] [place] [phone] Anna Adrian MD Other psoriasis 06/05/2024 Travel 06/05/2024 4:10 PM DIRECTOR CHANNEL - 06/05/2024 11:59 PM DIRECTOR CHANNEL Hospital Encounter [facility]RAW [facility]ATION [address] [place] [phone] Discharge Disposition: Home or Self Care 06/05/2024 3:40 PM DIRECTOR CHANNEL Office Visit [facility] - Dermatology [address] [place] [phone] Anna Adrian MD Psoriasis (Primary Dx); Encounter for long-term (current) use of high-risk medication 04/13/2024 Telephone [facility] - Dermatology [address] [facility], [place] [address] Monty Bustillos MD Follow-up 04/10/2024 Travel 04/10/2024 3:00 PM DIRECTOR CHANNEL Office Visit [facility] - Dermatology [facility] [place] [address] Anna Adrian MD Rash and other nonspecific [...] 08/16/2020 Gestational diabetes mellitus (GDM) in third [facility] 07/01/2020 Overview (07/22/2020): GCT 174, 2/4 abnormal on GTT at 32 weeks Assessment & Plan (08/01/2020 1:34 PM CDT): Did not bring logs P 1. Send logs weekly for review 2. NST 2x weekly 3. IOL date set , supervision, high-risk 05/11/2020 Overview (08/01/2020): Dated by 11w US - transfer of care to [facility] @25 week preg 27 pages scanned records in [facility] Jan 2020:O+/I/-/-, HIV neg, antibody neg, [...] 19 Immunizations Name Administration Dates Next Due [employer] primary monoval ent 12+ yr 0.3mL Purple [...] Description 07/24/2024 3:00 PM CDT Office Visit [facility] - Family Medicine [address] [facility], [facility] [address] [place] [phone] Luisa Montero MD [address] [place] [address] 09/04/2024 3:40 PM CDT Office Visit [facility] - Dermatology [address] [place] [address], [place] [phone] Anna Adrian MD [address] [place], [place] [address] [phone] Goals Goal Patient Goal Type Associated Problems [...] DIFFERENTIAL MANUAL Routine 06/05/2024 4 :57 PM DIRECTOR CHANNEL Encounter for long-term (current) use of high-risk medication COMPREHENSIVE METABOLIC PANEL Routine 06/05/2024 4:57 PM DIRECTOR CHANNEL Encounter for long-term (current) use of high-risk medication CBC W AUTO DIFFERENTIAL Routine 06/05/19 4:57 PM DIRECTOR CHANNEL Encounter for long-term (current) use of high-risk medication HEPATITIS C AB SCREEN RFLX NAAT QUANT Routine 06/05/2024 4:57 PM DIRECTOR CHANNEL Encounter for long-term (current) use of high-risk medication QUANTIFERON-TB GOLD PLUS 4-TUBE Routine 06/05/2024 4:57 PM DIRECTOR CHANNEL Encounter for long-term (current) use of high-risk medication HEPATITIS B SURFACE ANTIGEN W RFLX CONFIRMATION Routine 06/05/2024 4:57 PM DIRECTOR CHANNEL Encounter for long-term (current) use of high-risk medication HEPATITIS B CORE ANTIBODY TOTAL Routine 06/05/2024 4:57 PM DIRECTOR CHANNEL Encounter for long-term (current) use of high-risk medication NM PUNCH BX SKIN SINGLE LESION Routine 04/10/2024 4:06 PM DIRECTOR CHANNEL Rash and other nonspecific skin eruption DERMATOPATHOLOGY Routine 04/10/2024 12:0 0 AM DIRECTOR CHANNEL Rash and other nonspecific skin eruption from Last 3 Months Results * HEPATITIS C AB SCREEN RFLX NAAT QUANT (06/05/2024 4:57 PM DIRECTOR CHANNEL) Hepatitis C Antibody Non-react isidoro Ram-reac tive 06/05/2024 6:06 PM DIRECTOR CHANNEL [facility] Comment:Hepatitis C Antibody screen indicates no serologic evidence of past or current infection with Hepatitis C Virus. Patients with unexplained liver disease who are immunocompromised or suspected of having acute Hepatitis C infection may benefit from Nucleic Acid Test (KRISTA) for Hepatitis C Viral RNA to confirm Hepatitis C status. Blood BLOOD SPECIMEN / Unknown Lab Venipuncture / Unknown 06/05/2024 4:57 PM DIRECTOR CHANNEL 06/05/2024 5:04 PM DIRECTOR CHANNEL Anna Adrian MD LAB - CHEMISTRY STEPHANIE SHARMA [facility] [address] [place] [phone], [place] [phone] * QUANTIFERON-TB GOLD PLUS 4-TUBE (06/05/2024 4:57 PM DIRECTOR CHANNEL) [facility] QuantiFERON Mitogen Minus NIL 9.56 IU/mL 06/08/2024 3:33 AM [facility] [employer] ([facility]) QuantiFERON Nil Value 0.45 IU/mL 06/08/2024 3:33 AM [facility] ([facility]) QuantiFERON Plus TB1 Minus NIL 0.00 <=0.34 IU/mL 06/08/2024 3:33 AM DIRECTOR CHANNEL [facility] ([facility]) QuantiFERON Plus TB2 Minus NIL 0.00 <=0.34 IU/mL 06/08/2024 3:33 AM [facility] ([facility]) QuantiFERON-TB Gold Plus Negative Negative 06/08/2024 3:33 AM [facility] ([facility]) Comment: INTERPRETIVE INFORMATION:Quantiferon TB Gold Plus Interferon [...] Mycobacterium tuberculosis Infection -- [place], 2010 (http://www.cdc.gov/mmwr/preview/mmwrhtml/di8114c3.htm), for more information concerning test performance in low-prevalence populations and use in occupational screening. Performed By: [employer] [address] [place] [address] Technical Account Manager: Milton Iraheta MD, PhD CLIA Number: [id number] Blood BLOOD SPECIMEN / Unknown Lab Venipuncture / Unknown 06/05/2024 4:57 PM DIRECTOR CHANNEL 06/05/2024 5:12 PM DIRECTOR CHANNEL Anna Adrian MD LAB - CHEMISTRY ORDE EDITH [facility] ([facility]) [address] * (ABNORMAL) DIFFERENTIAL MANUAL (06/05/2024 4:57 PM DIRECTOR CHANNEL) Neutrophil % 42 41 - 74 % 06/05/2024 6:03 PM [facility] Lymphocyte % 48(H) 17 - 47 % 06/05/2024 6:03 PM [facility] Monocyte % 8 3 - 11 % 06/05/2024 6:03 PM [facility] Eosinophil % 2 0 - 7 % 06/05/2024 6:03 PM [facility] Neutrophil Absolute 4.28 1.60 - 7.50 x10E9/L 06/05/2024 6:03 PM [facility] Lymphocyte Absolute 4.90(H) 1.00 - 4.40 x10E9/L 06/05/2024 6:03 PM [facility] Monocyte Absolute 0.82 0.15 - 1.00 x10E9/L 06/05/2024 6:03 PM [facility] Eosinophil Absolute 0.20 0.00 - 0.60 x10E9/L 06/05/2024 6:03 PM [facility] RBC Morphology REVIEWED 06/05/2024 6:03 PM [facility] Schistocytes FEW(A) (none) 06/05/2024 6:03 PM [facility] Blood BLOOD SPECIMEN / Unknown Lab Venipuncture / Unknown 06/05/2024 4:57 PM DIRECTOR CHANNEL 06/05/2024 5:17 PM DIRECTOR CHANNEL Anna Adrian MD LAB - HEMATOLOGY ORD ERABLES [facility] [address] [place] [address], [place] [phone] * CBC WITH DIFFERENTIAL (06/05/2024 4:57 PM DIRECTOR CHANNEL) Pathologist [facility] WBC 10.2 4.0 - 10.7 x10E9/L 06/05/2024 6:03 PM [facility] RBC Count 4.28 3.90 - 5.20 x10E12/L 06/05/2024 6:03 PM [facility] Hemoglobin 11.9 11.9 - 15.8 g/dL 06/05/2024 6:03 PM [facility] Hematocrit 37.2 34.8 - 46.1 % 06/05/2024 6:03 PM [facility] MCV 86.9 80.0 - 98.0 fL 06/05/2024 6:03 PM [facility] MCH 27.8 26.7 - 33.6 pg 06/05/2024 6:03 PM [facility] MCHC 32.0 31.7 - 36.3 g/dL 06/05/2024 6:03 PM [facility] RDW-CV 12.9 11.3 - 14.8 % 06/05/2024 6:03 PM [facility] Platelet Count 348 150 - 420 x10E9/L 06/05/2024 6:03 PM [facility] MPV 10.5 7.8 - 11.4 fL 06/05/2024 6:03 PM [facility] Blood BLOOD SPECIMEN / Unknown Lab Venipuncture / Unknown 06/05/2024 4:57 PM DIRECTOR CHANNEL 06/05/2024 5:17 PM DIRECTOR CHANNEL Anna Adrian MD LAB - HEMATOLOGY ORD ERABLES [address] [address], [place] [phone] * (ABNORMAL) COMPREHENSIVE METABOLIC PANEL (06/05/2024 4:57 PM DIRECTOR CHANNEL) BUN 10 7 - 26 mg/dL 06/05/2024 5:51 PM [facility] Creatinine 0.66 0.56 - 0.96 mg/dL 06/05/2024 5:51 PM [facility] Sodium 139 136 - 145 mmol/L 06/05/2024 5:51 PM [facility] Potassium 3.7 3.5 - 4.5 mmol/L 06/05/2024 5:51 PM [facility] Chloride 108(H) 98 - 107 mmol/L 06/05/2024 5:51 PM [facility] CO2 23 22 - 29 mmol/L 06/05/2024 5:51 PM [facility] Glucose 83 70 - 99 mg/dL 06/05/2024 5:51 PM [facility] Calcium 8.9 8.4 - 10.2 mg/dL 06/05/2024 5:51 PM [facility] Protein Total 7.1 6.0 - 8.3 g/dL 06/05/2024 5:51 PM [facility] Albumin 3.8 3.4 - 5.0 g/dL 06/05/2024 5:51 PM [facility] Bilirubin Total 0.3 0.2 - 1.2 mg/dL 06/05/2024 5:51 PM [facility] Alkaline Phosphatase 99 40 - 150 U/L 06/05/2024 5:51 PM [facility] ALT 15 5 - 55 U/L 06/05/2024 5:51 PM [facility] AST 13 5 - 34 U/L 06/05/2024 5:51 PM [facility] Anion Gap 8 6 - 16 06/05/2024 5:51 PM [facility] BUN/Creatinine Ratio 15 7 - 23 06/05/2024 5:51 PM [facility] Osmolality Calculated 286 275 - 295 mOsm/kg 06/05/2024 5:51 PM [facility] Albumin/Globulin Ratio 1.2 1.1 - 2.3 06/05/2024 5:51 PM [facility] eGFR by CKD-EPI >90 >=90 mL/min/1.7 3 m2 06/05/2024 5:51 PM [facility] Blood BLOOD SPECIMEN / Unknown Lab Venipuncture / Unknown 06/05/2024 4:57 PM DIRECTOR CHANNEL 06/05/2024 5:17 PM DIRECTOR CHANNEL Anna Adrian MD LAB - CHEMISTRY ORDNadeen SHARMA [facility] Organization Address City/State/ZIP Co de Phone Number [address] [address], [place] [phone] * HEPATITIS B CORE ANTIBODY TOTAL (06/05/2024 4:57 PM DIRECTOR CHANNEL) HBc Antibody Total Non-reacti ve Non-reacti ve 06/05/2024 6:06 PM DIRECTOR CHANNEL [facility] Blood BLOOD SPECIMEN / Unknown Lab Venipuncture / Unknown 06/05/2024 4:57 PM DIRECTOR CHANNEL 06/05/2024 5:04 PM DIRECTOR CHANNEL Anna Adrian MD LAB - CHEMISTRY STEPHANIE SHARMA [address] [address], [place] [phone] * HEPATITIS B SURFACE ANTIGEN W RFLX CONFIRMATION (06/05/2024 4:57 PM DIRECTOR CHANNEL) Hepatitis B Virus Surface Antigen Non-reacti ve Non-reacti ve 06/05/2024 6:06 PM DIRECTOR CHANNEL [facility] Blood BLOOD SPECIMEN / Unknown Lab Venipuncture / Unknown 06/05/2024 4:57 PM DIRECTOR CHANNEL 06/05/2024 5:04 PM DIRECTOR CHANNEL Anna Adrian MD LAB - CHEMISTRY STEPHANIE SHARMA [address] [address], [place] [phone] * NM PUNCH BX SKIN SINGLE LESION (04/10/2024 4:06 PM DIRECTOR CHANNEL) Narrative Anna Adrian MD - 04/10/2024 4:06 PM DIRECTOR CHANNEL Monty Bustillos MD 04/10/2024 4:06 PM Risks, benefits and alternatives to punch biopsy were discussed with the patient, including risks of infection, scar (100% chance), the possibility of non-diagnostic reading, and the potential need for further testing or treatment, including surgical. Patient expressed understanding and verbal consent was obtained. Location: [facility] flank Punch biopsy: 4mm Skin prep: Alcohol Anesthesia: 1% lidocaine with epinephrine Closure: 4-0 nylon suture Dressing and wound care discussed. Patient agrees to phone call for results and message if not available. Monty Bustillos MD [facility] Dermatology Resident Anna Adrian MD PROCEDURE/MINOR SURG ICAL ORDERABLES * DERMATOPATHOLOGY (04/10/2024 12:00 AM [facility]) Case Report Dermatopathology Report Case: [id number] Authorizing Provider: Anna Adrian MD Collected: 04/10/2024 12:00 AM Ordering Location: [facility] - Received: 04/10/2024 05:00 PM Dermatology Pathologist: Catherine Morris MD Specimen: Skin, right flank 4:31 PM [facility] DERMATOPATHOLOGY LABORATORY Final Diagnosis Specimen A. 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 The specimen consists of a punch biopsy measuring 4x4x6 mm. Jar 0. 4:31 PM [facility] DERMATOPATH[facility]Y [facility]ORATORY Microscopic Description Specimen [...] clinical impression of guttate psoriasis. 4:31 PM [facility] DERMATOPATH[facility]ORATORY Disclaimer An external and internal positive and negative controls are appropriate for the histochemical, immunohistochemical and immunofluorescence stain(s) in this case (if any), except where stated explicitly. The performance characteristics of the stain(s) cited in this report were developed and its performance characteristic determined by the Dermatopathology Laboratory at [facility], directed by Dr. Michoacano Ayala. These tests need not be, and therefore are not, approved by the [place] Food and Drug Administration. The tests are used for clinical purposes. Billing Codes Specimen Charges Stain Charges 03367 1 [id number] 1 1 4 4:31 PM DIRECTOR CHANNEL DERMATOPATHOLOGY LABORATORY Embedded Images 4:31 PM DIRECTOR CHANNEL DERMATOPATHOLOGY LABORATORY Pathology/Cytolog y TISSUE SPECIMEN FROM SKIN / Unknown 04/10/2024 04/10/2024 5:00 PM DIRECTOR CHANNEL Anna Adrian MD LAB - PATHOLOGY/CYTO LOGY ORDERABLES DERMATOPATHOLOGY LABORATORY [facility] - Department of Dermatology [address], [address] [phone] from Last 3 Months Advance Directives * Full Code (Latest Code Status on File) Date Activated Date Inactivated Comments 08/16/2020 3:05 PM 08/17/2020 9:05 PM * Full Code Date Activated Date Inactivated Comments 08/08/2020 9:24 AM 08/11/2020 2:14 PM * Full Code Date Activated Date Inactivated Comments 06/26/2020 6:22 PM 06/27/2020 12:57 AM Care Teams Neonatal Intensive Care Unit Nurse Relationship Specialty Start Date End Date El Daugherty MD [address] [place] [phone] [facility] - General 02/16/19
--- OUTSIDE RECORDS SUMMARY | 2024-07-04 23:02 | XMS_ITS | Patient Health Summary ---
Author Organization [facility] Address [address] [place] [address] Care Team Providers Care Chemical Analytical Sampler Name Role Phone El Daugherty MD Primary Care Provider [phone] Note from [facility],non-owned Affiliates and Associated Physician Practices is amultiple site organization consisting of ambulatory clinics and hospital sitesin [place], [place], [place] and [place]. This disclosure is being madepursuant to the Care Everywhere program and may not contain all information available regarding this patient. Last updated 18.[facility] Allergies * Amoxicillin(Rash) -High Criticality * Omeprazole(Other) [...] long-term (current) use of high-risk medication * HI PUNCH BX SKIN SINGLE LESION(Performed 04/10/2024) Performed [...] RBC LEUKOREDUCED UNIT(Performed 08/10/2020) Performed for state ([facility]) * GLUCOSE - POINT OF CARE(Performed 08/10/2020) [...] for Dichorionic diamniotic twin in third trimester ([facility]) * TYPE + SCREEN PANEL(Performed 08/08/2020) Performed for Dichorionic diamniotic twin in third trimester ([facility]) * SYPHILIS ANTIBODY CASCADING REFLEX(Performed 08/08/2020) Performed for Dichorionic diamniotic twin in third trimester ([facility]) * GLUCOSE - POINT OF CARE(Performed 08/08/2020) * HI BIOPHYSICAL PROFILE(Performed 08/01/2020) Performed for Dichorionic diamniotic twin in third trimester ([facility]), Diet controlled gestational diabetes mellitus (GDM) in third trimester ([facility]), Encounter for ultrasound to assess growth in twin , antepartum ([facility]) * HI BIOPHYSICAL PROFILE(Performed 08/01/2020) Performed for Dichorionic diamniotic twin in third trimester ([facility]), Diet controlled gestational diabetes mellitus (GDM) in third trimester ([facility]), Encounter for ultrasound to assess growth in twin , antepartum ([facility]) * HI SONO FU OR REPEAT(Performed 08/01/2020) Performed for Dichorionic diamniotic twin in third trimester ([facility]), Diet controlled gestational diabetes mellitus (GDM) in third trimester ([facility]), Encounter for ultrasound to assess growth in twin , antepartum ([facility]) * HI SONO FU OR REPEAT(Performed 08/01/2020) Performed for Dichorionic diamniotic twin in third trimester ([facility]), Diet controlled gestational diabetes mellitus (GDM) in third trimester ([facility]), Encounter for ultrasound to assess growth in twin , antepartum ([facility]) * IMAGING/RADIOLOGY/XRAY RESULTS ORDER(Performed 08/01/2020) * HI BIOPHYSICAL PROFILE(Performed 07/26/2020) Performed for Dichorionic diamniotic twin in third trimester ([facility]), Gestational diabetes mellitus (GDM) in third trimester, gestational diabetes method of control unspecified ([facility]) * HI BIOPHYSICAL PROFILE(Performed 07/26/2020) Performed for Dichorionic diamniotic twin in third trimester ([facility]), Gestational diabetes mellitus (GDM) in third trimester, gestational diabetes method of control unspecified ([facility]) * IMAGING/RADIOLOGY/XRAY RESULTS ORDER(Performed 07/26/2020) * URINALYSIS - POINT OF CARE (AMB) SLU(Performed 07/26/2020) Performed for Dichorionic diamniotic twin in second trimester ([facility]) * HI BIOPHYSICAL PROFILE(Performed 07/16/2020) Performed for Gestational diabetes mellitus (GDM) in third trimester, gestational diabetes method of control unspecified ([facility]), Maternal obesity, antepartum, third trimester ([facility]), Dichorionic diamniotic twin in third trimester ([facility]) * HI BIOPHYSICAL PROFILE(Performed 07/16/2020) Performed for Gestational diabetes mellitus (GDM) in third trimester, gestational diabetes method of control unspecified ([facility]), Maternal obesity, antepartum, third trimester ([facility]), Dichorionic diamniotic twin in third trimester ([facility]) * CULTURE STREP B+SUSCEPT(Performed 07/16/2020) Performed for screening for streptococcus B ([facility]) * IMAGING/RADIOLOGY/XRAY RESULTS ORDER(Performed 07/16/2020) * URINALYSIS - POINT OF CARE (AMB) [facility](Performed 07/16/2020) Performed for Dichorionic diamniotic twin in second trimester ([facility]) * IMAGING/RADIOLOGY/XRAY RESULTS ORDER(Performed 07/05/2020) * IMAGING/RADIOLOGY/XRAY RESULTS ORDER(Performed 07/05/2020) * HI SONO FU OR REPEAT(Performed 07/04/2020) Performed for Gestational diabetes mellitus (GDM) in third trimester, gestational diabetes method of control unspecified ([facility]), Dichorionic diamniotic twin in third trimester ([facility]) * HI BIOPHYSICAL PROFILE(Performed 07/04/2020) Performed for Gestational diabetes mellitus (GDM) in third trimester, gestational diabetes method of control unspecified ([facility]), Dichorionic diamniotic twin in third trimester ([facility]) * URINALYSIS - POINT OF CARE (AMB) [facility]U(Performed 07/04/2020) Performed for Dichorionic diamniotic twin in third trimester ([facility]) * GTT 3 HR (100G) GESTATIONAL DIAGNOSTIC(Performed 06/29/2020) Performed for -induced glucose intolerance ([facility]), Dichorionic diamniotic twin inthird trimester ([facility]) * IMAGING/RADIOLOGY/XRAY RESULTS ORDER(Performed 06/28/2020) * NONSTRESS TEST(Performed 06/26/2020) * COMPREHENSIVE METABOLIC PANEL(Performed 06/26/2020) Performed for Supervision of other normal , antepartum ([facility]) * CBC W AUTO DIFFERENTIAL(Performed 06/26/2020) Performed for Supervision of other normal , antepartum ([facility]) * GLUCOSE - POINT OF CARE(Performed 06/26/2020) * TSH(Performed 06/15/2020) * T4 FREE(Performed 06/15/2020) * CBC W/O DIFFERENTIAL(Performed 06/15/2020) * HEMOGLOBINOPATHY EVALUATION PANEL(Performed 06/15/2020) * GTT 1 HR (50G) GESTATIONAL SCREEN(Performed 06/15/2020) * IMAGING/RADIOLOGY/XRAY RESULTS ORDER(Performed 06/13/2020) * IMAGING/RADIOLOGY/XRAY RESULTS ORDER(Performed 06/07/2020) * C. TRACHOMATIS + N. GONORRHOEAE + TRICH KYAW(Performed 06/06/2020) Performed for Supervision of other normal , antepartum (HCC) * HI SONO FU OR REPEAT(Performed 06/06/2020) Performed for Encounter for ultrasound to check growth (HCC), Dichorionic diamniotic twin in third trimester (HCC), Maternal obesity, antepartum, third trimester (HCC) * HI SONO FU OR REPEAT(Performed 06/06/2020) Performed for Encounter for ultrasound to check growth (HCC), Dichorionic diamniotic twin in third trimester (HCC), Maternal obesity, antepartum, third trimester (HCC) * URINALYSIS - POINT OF CARE (AMB) [facility]U(Performed 06/06/2020) Performed for Dichorionic diamniotic twin in second trimester (HCC) * HI SONO FU OR REPEAT(Performed 05/10/2020) Performed for Dichorionic diamniotic twin in second trimester (HCC), Obesity affecting in second trimester (HCC), Encounter for screening for cervical length ([facility]) * HI ULTRASND,PREG UTER,TRANSVAGIN(Performed 05/10/2020) Performed for Dichorionic diamniotic [...] (HCC) * IMAGING/RADIOLOGY/XRAY RESULTS ORDER(Performed 04/25/2020) * HI ULTRASND,PREG UTER,TRANSVAGIN(Performed 04/24/2020) Performed for Dichorionic diamniotic twin in second trimester (HCC), Hypothyroidism affecting in second trimester (HCC), High risk medications (not anticoagulants) long-term use * HI OB US, LIMITED, FETUS(S)(Performed 04/24/2020) Performed for Dichorionic diamniotic twin in second trimester ([facility]), Hypothyroidism affecting in second trimester ([facility]), High risk medications (not anticoagulants) long-term use * ALPHA FETOPROTEIN BLOOD MATERNAL QUAD PANEL(Performed 04/15/2020) Performed for Dichorionic diamniotic twin in second trimester ([facility]) * IMAGING/RADIOLOGY/XRAY RESULTS ORDER(Performed 04/12/2020) * HI ULTRASND,PREG UTER,TRANSVAGIN(Performed 04/11/2020) Performed for Dichorionic diamniotic twin in second trimester ([facility]), Encounter for screening for cervical length ([facility]) * HI ULTRASND,PREG UTERUS,IMAGE DOC(Performed 04/11/2020) Performed for Encounter for anatomic survey ([facility]), Dichorionic diamniotic twin in second trimester ([facility]), Obesity affecting in second trimester ([facility]), BMI 30.0-30.9,adult * HI ULTRA,PREG UTER,IMAGE,ADD GEST(Performed 04/11/2020) Performed for Encounter for anatomic survey ([facility]), Dichorionic diamniotic twin in second trimester ([facility]), Obesity affecting in second trimester ([facility]), BMI 30.0-30.9,adult * URINALYSIS - POINT OF CARE (AMB) [facility](Performed 04/11/2020) Performed for Dichorionic diamniotic twin in second trimester ([facility]) * IMAGING/RADIOLOGY/XRAY RESULTS ORDER(Performed 03/29/2020) * HI ULTRASND,PREG UTER,TRANSVAGIN(Performed 03/28/2020) Performed for Dichorionic diamniotic twin in second trimester ([facility]), Encounter for screening for cervical length ([facility]) * IMAGING/RADIOLOGY/XRAY RESULTS ORDER(Performed 03/14/2020) * HI OB US, LIMITED, FETUS(S)(Performed 03/13/2020) Performed for Dichorionic diamniotic twin in second trimester ([facility]), Duodenal ulcer disease, Encounter for screening for cervical length ([facility]) * HI ULTRASND,PREG UTER,TRANSVAGIN(Performed 03/13/2020) Performed for Dichorionic diamniotic twin in second trimester ([facility]), Duodenal ulcer disease, Encounter for screening for cervical length ([facility]) * URINALYSIS - POINT OF CARE (AMB) [facility](Performed 03/13/2020) Performed for Dichorionic diamniotic twin in second trimester (HCC) * PATHOLOGY TISSUE(Performed 03/30/2019) Performed for Peptic ulcer disease * HI COLONOSCOPY, DIAGNOSTIC(Performed 03/30/2019) Performed for Peptic ulcer disease * HI ED EGD FLEX TRANSORAL DX(Performed 03/30/2019) Performed [...] SCREEN RFLX NAAT QUANT (06/05/2024 4:57 PM BLACK AND WHITE PRINTER OPERATOR) [facility] Hepatitis C Antibody Non-react isidoro Non-reac tive 06/05/2024 6:06 PM BLACK AND WHITE PRINTER OPERATOR [facility] Comment:Hepatitis C Antibody screen indicates no serologic evidence of past or current infection with Hepatitis C Virus. Patients with unexplained liver disease who are immunocompromised or suspected of having acute Hepatitis C infection may benefit from Nucleic Acid Test (KRISTA) for Hepatitis C Viral RNA to confirm Hepatitis C status. Blood BLOOD SPECIMEN / Unknown Lab Venipuncture / Unknown 06/05/2024 4:57 PM BLACK AND WHITE PRINTER OPERATOR 06/05/2024 5:04 PM BLACK AND WHITE PRINTER OPERATOR Anna Adrian MD LAB - CHEMISTRY STEPHANIE SHARMA [facility] [address] [address], [facility] [phone] * QUANTIFERON-TB GOLD PLUS 4-TUBE (06/05/2024 4:57 PM BLACK AND WHITE PRINTER OPERATOR) [facility] QuantiFERON Mitogen Minus NIL 9.56 IU/mL 06/08/2024 3:33 AM BLACK AND WHITE PRINTER OPERATOR [facility] ([facility]) QuantiFERON Nil Value 0.45 IU/mL 06/08/2024 3:33 AM BLACK AND WHITE PRINTER OPERATOR [facility] ([facility]) QuantiFERON Plus TB1 Minus NIL 0.00 <=0.34 IU/mL 06/08/2024 3:33 AM BLACK AND WHITE PRINTER OPERATOR [facility] ([facility]) QuantiFERON Plus TB2 Minus NIL 0.00 <=0.34 IU/mL 06/08/2024 3:33 AM BLACK AND WHITE PRINTER OPERATOR [facility] ([facility]) QuantiFERON-TB Gold Plus Negative Negative 06/08/2024 3:33 AM [facility] ([facility]) Comment: INTERPRETIVE INFORMATION:Quantiferon TB Gold Plus [...] Mycobacterium tuberculosis Infection -- [place], 2010 (http://www.cdc.gov/mmwr/preview/mmwrhtml/fu2669q5.htm), for more information concerning test performance in low-prevalence populations and use in occupational screening. Performed By: [employer] [address] [place] [address] Speech Language Pathologist Assistant: Milton Iraheta MD, PhD CLIA Number: [id number] Blood BLOOD SPECIMEN / Unknown Lab Venipuncture / Unknown 06/05/2024 4:57 PM BLACK AND WHITE PRINTER OPERATOR 06/05/2024 5:12 PM BLACK AND WHITE PRINTER OPERATOR Anna Adrian MD LAB - CHEMISTRY STEPHANIE SHARMA [facility] Organization Address City/State/ZIP Co de Phone Number [facility] ([facility]) [address] [place] [address], [facility] * (ABNORMAL) DIFFERENTIAL MANUAL (06/05/2024 4:57 PM BLACK AND WHITE PRINTER OPERATOR) Pathologist [facility] Neutrophil % 42 41 - 74 % 06/05/2024 6:03 PM [facility] Lymphocyte % 48(H) 17 - 47 % 06/05/2024 6:03 PM [facility] Monocyte % 8 3 - 11 % 06/05/2024 6:03 PM [facility] Eosinophil % 2 0 - 7 % 06/05/2024 6:03 PM [facility] Neutrophil Absolute 4.28 1.60 - 7.50 x10E9/L 06/05/2024 6:03 PM [facility] Lymphocyte Absolute 4.90(H) 1.00 - 4.40 x10E9/L 06/05/2024 6:03 PM [facility] Monocyte Absolute 0.82 0.15 - 1.00 x10E9/L 06/05/2024 6:03 PM [facility] Eosinophil Absolute 0.20 0.00 - 0.60 x10E9/L 06/05/2024 6:03 PM [facility] RBC Morphology REVIEWED 06/05/2024 6:03 PM [facility] Schistocytes FEW(A) (none) 06/05/2024 6:03 PM [facility] Blood BLOOD SPECIMEN / Unknown Lab Venipuncture / Unknown 06/05/2024 4:57 PM BLACK AND WHITE PRINTER OPERATOR 06/05/2024 5:17 PM BLACK AND WHITE PRINTER OPERATOR Anna Adrian MD LAB - HEMATOLOGY ORD ERABLES [facility] [address] [place] [phone], [facility] [phone] * CBC WITH DIFFERENTIAL (06/05/2024 4:57 PM BLACK AND WHITE PRINTER OPERATOR) Only the most recent of6 resultswithin the time period is included. Pathologist [facility] WBC 10.2 4.0 - 10.7 x10E9/L 06/05/2024 6:03 PM [facility] RBC Count 4.28 3.90 - 5.20 x10E12/L 06/05/2024 6:03 PM [facility] Hemoglobin 11.9 11.9 - 15.8 g/dL 06/05/2024 6:03 PM [facility] Hematocrit 37.2 34.8 - 46.1 % 06/05/2024 6:03 PM [facility] MCV 86.9 80.0 - 98.0 fL 06/05/2024 6:03 PM [facility] MCH 27.8 26.7 - 33.6 pg 06/05/2024 6:03 PM [facility] MCHC 32.0 31.7 - 36.3 g/dL 06/05/2024 6:03 PM [facility] RDW-CV 12.9 11.3 - 14.8 % 06/05/2024 6:03 PM [facility] Platelet Count 348 150 - 420 x10E9/L 06/05/2024 6:03 PM [facility] MPV 10.5 7.8 - 11.4 fL 06/05/2024 6:03 PM [facility] Blood BLOOD SPECIMEN / Unknown Lab Venipuncture / Unknown 06/05/2024 4:57 PM BLACK AND WHITE PRINTER OPERATOR 06/05/2024 5:17 PM BLACK AND WHITE PRINTER OPERATOR Anna Adrian MD LAB - HEMATOLOGY ORD ERABLES [facility] [address] [place] [phone], [facility] [phone] * (ABNORMAL) COMPREHENSIVE METABOLIC PANEL (06/05/2024 4:57 PM BLACK AND WHITE PRINTER OPERATOR) Only the most recent of4 resultswithin the time period is included. BUN 10 7 - 26 mg/dL 06/05/2024 5:51 PM [facility] Creatinine 0.66 0.56 - 0.96 mg/dL 06/05/2024 5:51 PM [facility] Sodium 139 136 - 145 mmol/L 06/05/2024 5:51 PM [facility] Potassium 3.7 3.5 - 4.5 mmol/L 06/05/2024 5:51 PM [facility] Chloride 108(H) 98 - 107 mmol/L 06/05/2024 5:51 PM [facility] CO2 23 22 - 29 mmol/L 06/05/2024 5:51 PM [facility] Glucose 83 70 - 99 mg/dL 06/05/2024 5:51 PM [facility] Calcium 8.9 8.4 - 10.2 mg/dL 06/05/2024 5:51 PM [facility] Protein Total 7.1 6.0 - 8.3 g/dL 06/05/2024 5:51 PM [facility] Albumin 3.8 3.4 - 5.0 g/dL 06/05/2024 5:51 PM [facility] Bilirubin Total 0.3 0.2 - 1.2 mg/dL 06/05/2024 5:51 PM [facility] Alkaline Phosphatase 99 40 - 150 U/L 06/05/2024 5:51 PM [facility] ALT 15 5 - 55 U/L 06/05/2024 5:51 PM [facility] AST 13 5 - 34 U/L 06/05/2024 5:51 PM [facility] Anion Gap 8 6 - 16 06/05/2024 5:51 PM [facility] BUN/Creatinine Ratio 15 7 - 23 06/05/2024 5:51 PM [facility] Osmolality Calculated 286 275 - 295 mOsm/kg 06/05/2024 5:51 PM [facility] Albumin/Globulin Ratio 1.2 1.1 - 2.3 06/05/2024 5:51 PM [facility] eGFR by CKD-EPI >90 >=90 mL/min/1.7 3 m2 06/05/2024 5:51 PM [facility] Blood BLOOD SPECIMEN / Unknown Lab Venipuncture / Unknown 06/05/2024 4:57 PM BLACK AND WHITE PRINTER OPERATOR 06/05/2024 5:17 PM [facility] Anna Adrian MD LAB - CHEMISTRY ORDE EDITH [facility] Organization Address City/State/ZIP Co de Phone Number [facility] [address] [place] [address], [facility] [phone] * HEPATITIS B CORE ANTIBODY TOTAL (06/05/2024 4:57 PM BLACK AND WHITE PRINTER OPERATOR) HBc Antibody Total Non-reacti ve Non-reacti ve 06/05/2024 6:06 PM BLACK AND WHITE PRINTER OPERATOR [facility] Blood BLOOD SPECIMEN / Unknown Lab Venipuncture / Unknown 06/05/2024 4:57 PM BLACK AND WHITE PRINTER OPERATOR 06/05/2024 5:04 PM BLACK AND WHITE PRINTER OPERATOR Anna Adrian MD LAB - CHEMISTRY STEPHANIE SHARMA Performing Organization Address City/[facility]/ZIP Co de Phone Number [facility] [address] [place] [phone], [facility] [phone] * HEPATITIS B SURFACE ANTIGEN W RFLX CONFIRMATION (06/05/2024 4:57 PM BLACK AND WHITE PRINTER OPERATOR) Pathologist [facility] Hepatitis B Virus Surface Antigen Non-reacti ve Non-reacti ve 06/05/2024 6:06 PM BLACK AND WHITE PRINTER OPERATOR [facility] Blood BLOOD SPECIMEN / Unknown Lab Venipuncture / Unknown 06/05/2024 4:57 PM BLACK AND WHITE PRINTER OPERATOR 06/05/2024 5:04 PM BLACK AND WHITE PRINTER OPERATOR Anna Adrian MD LAB - CHEMISTRY STEPHANIE SHARMA Performing Organization Address City/[facility]/ZIP Co de Phone Number [address] [address], [place] [phone] * HI PUNCH BX SKIN SINGLE LESION (04/10/2024 4:06 PM BLACK AND WHITE PRINTER OPERATOR) Narrative Anna Adrian MD - 04/10/2024 4:06 PM BLACK AND WHITE PRINTER OPERATOR Monty Bustillos MD 04/10/2024 4:06 PM Risks, [...] message if not available. Monty Bustillos MD [facility] Dermatology Resident Anna Adrian MD PROCEDURE/MINOR SURG ICAL ORDERABLES * DERMATOPATHOLOGY (04/10/2024 12:00 AM [facility]) Case Report Dermatopathology Report Case: [id number] Authorizing Provider: Anna Adrian MD Collected: 04/10/2024 12:00 AM Ordering Location: [facility] - Received: 04/10/2024 05:00 PM Dermatology Pathologist: Catherine Morris MD Specimen: Skin, right flank 4:31 PM [facility] DER[facility]ORAT[facility] Final Diagnosis Specimen A. 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 The specimen consists of a punch biopsy measuring 4x4x6 mm. Jar 0. 4:31 PM [facility] DERMATOPATHOLOGY [facility]ATORY Microscopic Description Specimen [...] clinical impression of guttate psoriasis. 4:31 PM [facility] DERMATOPATHOLOGY LABORATORY Disclaimer An external and internal positive and negative controls are appropriate for the histochemical, immunohistochemical and immunofluorescence stain(s) in this case (if any), except where stated explicitly. The performance characteristics of the stain(s) cited in this report were developed and its performance characteristic determined by the Dermatopathology Laboratory at [facility], directed by Dr. Michoacano Ayala. These tests need not be, and therefore are not, approved by the [place] Food and Drug Administration. The tests are used for clinical purposes. Billing Codes Specimen Charges Stain Charges 42696 1 [id number] 1 1 4 4:31 PM BLACK AND WHITE PRINTER OPERATOR DERMATOPATHOLOGY LABORATORY Embedded Images 4 4:31 PM BLACK AND WHITE PRINTER OPERATOR DERMATOPATHOLOGY LABORATORY Pathology/Cytolog y TISSUE SPECIMEN FROM SKIN / Unknown 04/10/2024 04/10/2024 5:00 PM BLACK AND WHITE PRINTER OPERATOR Anna Adrian MD LAB - PATHOLOGY/CYTO LOGY ORDERABLES DERMATOPATHOLOGY LABORATORY [facility] - Department of Dermatology [address] [phone] * TYPE + SCREEN PANEL (08/16/2020 6:35 PM CDT) Only the most recent of2 resultswithin the time period is included. ABO Rh O POS 08/16/2020 7:30 PM CDT [facility] Comment:History checked. Antibody Screen NEG 7:30 PM CDT [facility] Blood Bank BLOOD SPECIMEN / Unknown Venipuncture / Unknown 08/16/2020 6:35 PM CDT 08/16/2020 6:46 PM CDT Uriel Bacon MD LAB - BLOOD BANK ORD ERABLES Performing Organization Address City/[facility]/ZIP Co de Phone Number [facility] [address] [phone] * PROTEIN CREATININE RATIO URINE RANDOM PNL (08/16/2020 3:32 PM CDT) Protein Urine <6.8 <11.9 mg/dL 08/16/2020 4:00 PM CDT [facility] Creatinine Urine 64.12 mg/dL 08/16/2020 4:00 PM CDT [facility] Protein/Creatin ine Ratio Urine 08/16/2020 4:00 PM CDT [facility] Comment:Unable to calculate due to limited levels of measurable protein. Urine URINE SPECIMEN OBTAINED BY CLEAN CATCH PROCEDURE / Unknown Collection / Unknown 08/16/2020 3:32 PM CDT 08/16/2020 3:39 PM CDT Uriel Bacon MD LAB - URINE CHEMISTR Y ORDERABLES [facility] [address] [place] [address] * (ABNORMAL) CBC W/O DIFFERENTIAL (08/16/2020 3:30 PM CDT) Only the most recent of3 resultswithin the time period is included. WBC 10.7 4.4 - 10.7 x10E9/L 08/16/2020 3:45 PM CDT [facility] RBC 3.82 3.80 - 5.20 x10E12/L 08/16/2020 3:45 PM CDT [facility] Hemoglobin 9.6(L) 12.0 - 15.6 gm/dL 08/16/2020 3:45 PM CDT [facility] Hematocrit 33.0(L) 35.9 - 45.5 % 08/16/2020 3:45 PM CDT [facility] MCV 86.4 80.7 - 98.3 fl 08/16/2020 3:45 PM CDT [facility] MCH 25.1(L) 26.7 - 34.0 pg 08/16/2020 3:45 PM CDT [facility] MCHC 29.1(L) 30.8 - 35.9 gm/dL 08/16/2020 3:45 PM CDT [facility] Platelet Count 380 153 - 416 x10E9/L 08/16/2020 3:45 PM CDT [facility] RDW-CV 19.5(H) 12.1 - 14.9 % 08/16/2020 3:45 PM CDT [facility] MPV 10.8 9.4 - 12.9 fl 08/16/2020 3:45 PM CDT [facility] Blood BLOOD SPECIMEN / Unknown Venipuncture / Unknown 08/16/2020 3:30 PM CDT 08/16/2020 3:39 PM CDT Uriel Bacon MD LAB - HEMATOLOGY ORD ERABLES [facility] [address] [place] [address] * IMAGING RADIOLOGY XRAY RESULTS ORDER (08/13/2020 [...] PM CDT) Unit Description AS1 LR PRBC [facility] Unit ABO O [facility] Unit Rh POS [facility] Product Number R02 [facility] Unit Donor # [id number] [facility] Unit Status transfused [facility] Product Code [id number] [facility] Blood Type Barcode 5100 [facility] Expiration Date [id number] [facility] Unit Description AS1 LR PRBC [facility] Unit ABO O [facility] Unit Rh POS [facility] Product Number R02 [facility] Unit Donor # [id number] [facility] Unit Status transfused [facility] Product Code [id number] [facility] Blood Type Barcode 5100 [facility] Expiration Date [id number] [facility] Blood Bank BLOOD SPECIMEN / Unknown 08/08/2020 10:33 AM CDT Carolann Reyna MD LAB - BLOOD BA NK ORDERABLES [facility] [address] [place], [place] [id number] [place] [address] * TRANSFUSE RED BLOOD CELL LEUKOREDUCED UNIT(S) (08/10/2020 11:32 AM CDT) Carolann Reyna MD NURSING - BLOO D PROD TRANSFUSION * GLUCOSE - POINT OF CARE (08/10/2020 6:40 AM CDT) Only the most recent of15 resultswithin the time period is included. Glucose WB/POC 79 70 - 106 mg/dL 08/10/2020 6:47 AM CDT [facility] Specimen Type Arterial/C apillary 08/10/2020 6:47 AM CDT [facility] Blood BLOOD SPECIMEN / Unknown 08/10/2020 6:40 AM CDT 08/10/2020 6:47 AM CDT Carolann Reyna MD LAB - POINT OF CARE ORDERABLES Performing Organization Address City/State/[facility] Co de Phone Number [facility] [address] [place] [address] * BLOOD GASES CORD CHERYL (08/09/2020 4:06 [...] 08/09/2020 4:21 AM CDT [facility] THER[facility] Director Human Services ID [id number] 08/09/2020 4:21 AM CDT [facility] [...] BLOOD GA SES ORDERABLES Performing Organization Address City/State/[facility] Co de Phone Number [facility] [address] [phone] * (ABNORMAL) BLOOD GASES CORD ARTERIAL (08/09/2020 [...] 08/09/2020 4:23 AM CDT [facility] RESP THERAPY Director Human Services ID [id number] 08/09/2020 4:23 AM CDT [facility] [...] BLOOD GA SES ORDERABLES Performing Organization Address City/State/[facility] Co de Phone Number [facility] [address] [place] [address] * EPIDURAL BLOCK PERF (08/08/2020 4:43 PM CDT) Narrative Virgilio Baer APRN-DOT ETCHER - 08/08/2020 4:43 PM CDT Virgilio Baer [...] for details. Staff: Anesthesia Provider: Virgilio Baer APRN-DOT ETCHER - performed the procedure Jaylene Fisher DO GENERAL ANESTHESIA ORDERABLES * BLOOD TYPE VERIFICATION (08/08/2020 11:04 AM CDT) ABO Rh O POS 08/08/2020 11:32 AM CDT [facility] Blood Bank BLOOD SPECIMEN / Unknown Venipuncture / Unknown 08/08/2020 11:04 AM CDT 08/08/2020 11:08 AM CDT Carolann Reyna MD LAB - BLOOD BA NK ORDERABLES Performing Organization Address [facility] Co de Phone Number [facility] [address] [place] [address] * SYPHILIS ANTIBODY CASCADING REFLEX (08/08/2020 10:21 AM CDT) Treponema pallidum Antibody Non Reactive Non Reactive 08/08/2020 11:48 AM CDT [facility] Comment: No Laboratory evidence of syphilis infection. Note: Circulating antibodies may be low or undetectable in early infection. If recent exposure is suspected, re-draw sample in 2-4 weeks and repeat testing. Blood BLOOD SPECIMEN / Unknown Venipuncture / Unknown 08/08/2020 10:21 AM CDT 08/08/2020 10:33 AM CDT Carolann Reyna MD LAB - SEROLOGY ORDERABLES Performing Organization Address City/[facility] Co de Phone Number [facility] [address] [place] [address] * HI SONO FU OR REPEAT, HI SONO FU OR REPEAT, HI BIOPHYSICAL PROFILE, HI BIOPHYSICAL PROFILE (08/01/2020 2:58 PM CDT) Narrative Betty Chambers - 08/01/2020 2:58 PM CDT Betty Chambers 08/01/2020 2:58 PM Documentation in digisonics Melva Becker MD PROCEDURE/MINOR S URGICAL ORDERABLES * HI BIOPHYSICAL PROFILE, HI BIOPHYSICAL PROFILE (07/26/2020 2:42 PM CDT) Narrative Giovana Marmolejo RDMS - 07/26/2020 2:42 PM CDT Giovana Marmolejo RD 07/26/2020 2:42 PM Documentation in digisonics. Kristy Kaye MD PROCEDURE/MINOR LOS GICAL ORDERABLES * URINALYSIS - POINT OF CARE (AMB) [facility] (07/26/2020) Only the most recent of7 resultswithin the time period is included. Specific [place]more UA 1.020 pH UA 6 WBC UA n Nitrite UA n Protein UA n Glucose UA n Ketones UA POCT n Urobilinogen UA n Bilirubin UA POCT n Blood Urine POCT n Urine URINE / Unknown 07/26/2020 Bertin Saxena MD LAB - POINT OF CARE ORDERABLES * HI BIOPHYSICAL PROFILE, HI BIOPHYSICAL PROFILE (07/16/2020 1:41 PM CDT) Narrative Nehal Lopez - 07/16/2020 1:41 PM CDT Nehal Lopez 07/16/2020 1:42 PM Documentation in digisonics. See NST Flowsheet. Carolann Reyna MD PROCEDURE/JUANA R SURGICAL ORDERABLES * CULTURE STREP B+SUSCEPT (07/16/2020 1:03 PM CDT) Culture Strep B with Susc [facility] Comment: CULTURE, GROUP B STREP WITH SUSCEPTIBILITY Micro Number: [id number] Test Status: Final Specimen Source: VAGINAL/ANORECTAL Specimen Quality: Adequate Result: No group B Streptococcus isolated Note per CDC guidelines optimal recovery is achieved by swabbing both the lower vagina and rectum (through the anal sphincter). REPORT COMMENT: FASTING:UNKNOWN Test Performed at: [facility] [address] [place] [address] NISHA BORREGO DO,MPH Microbiology MISCELLANEOUS SAMPLES / Unknown 07/16/2020 1:03 PM CDT 07/16/2020 1:13 PM CDT Carolann Reyna MD LAB - MICROBIO LOGY ORDERABLES Performing Organization Address [facility]/ZIP Co de Phone Number [facility] [address] [place] [address] * HI BIOPHYSICAL PROFILE, HI SONO FU OR REPEAT (07/04/2020 11:18 AM BLACK AND WHITE PRINTER OPERATOR) Narrative Nehal Lopez - 07/04/2020 11:18 AM BLACK AND WHITE PRINTER OPERATOR Nehal Lopez 07/04/2020 11:18 AM Documentation in digisonics. See NST Flowsheet. Shirin Valencia MD PROCEDURE/MINOR LOS GICAL ORDERABLES * (ABNORMAL) GTT 3 HR (100G) GESTATIONAL DIAGNOSTIC (06/29/2020 8:24 AM BLACK AND WHITE PRINTER OPERATOR) Glucose Fasting GTT 102(H) 65 - 94 mg/dL [facility] GTT 1Hr 189(H) <180 mg/dL [facility] Glucose 2Hr 128 <155 mg/dL [facility] GTT 3 Hr 117 <140 mg/dL [facility] Quest See Below [facility] Comment: Stuart/Coustan Criteria: Two or more values greater than the above reference intervals are suggestive of gestational diabetes. REPORT COMMENT: FASTING:YES Test Performed at: [facility] [address] [place] [address] NISHA BORREGO DO,MPH Blood BLOOD SPECIMEN / Unknown 06/29/2020 8:24 AM BLACK AND WHITE PRINTER OPERATOR 06/29/2020 8:25 AM BLACK AND WHITE PRINTER OPERATOR Shirin Valencia MD LAB - CHEMISTRY ORD ERABLES [facility] [id number] [place] [id number] * NONSTRESS TEST (06/26/2020 11:19 PM BLACK AND WHITE PRINTER OPERATOR) Narrative Linda Krishnamurthy MD - 06/26/2020 11:19 PM BLACK AND WHITE PRINTER OPERATOR Aline Marie RN 06/26/2020 11:50 PM Name: [...] HR (50G) GESTATIONAL SCREEN (06/15/2020 7:31 AM BLACK AND WHITE PRINTER OPERATOR) Pathologist [facility] Glucose Gestational Screen 174(H) <140 mg/dL [facility] Comment: One hour value of > or = 140 mg/dL indicates the need for a diagnostic 75 g dose 2-hour or 100 g dose 3-hour oral glucose tolerance test; patient fasting is required. Test Performed at: [facility] [address] [place] [address] NISHA BORREGO DO,MPH 06/15/2020 7:31 AM BLACK AND WHITE PRINTER OPERATOR 06/15/2020 7:33 AM BLACK AND WHITE PRINTER OPERATOR Shirin Valencia MD LAB - CHEMISTRY ORD ERABLES [facility] [address] [place] [address] * (ABNORMAL) HEMOGLOBINOPATHY EVALUATION PANEL (06/15/2020 7:31 AM BLACK AND WHITE PRINTER OPERATOR) RBC 3.49(L) 3.80 - 5.10 Mill/uL [facility] [...] and Hemoglobinopathy Comprehensive is available (Test code 97036). The performance of the device used for this testing, [employer] Resolution [employer] Liaison System, has not been fully characterized by [employer]. Clinicians are advised to consider a patient's signs, symptoms, history and results of other diagnostic tests when interpreting results from this device. If the results do not match the patient's clinical presentation, the patient sample should be retested using an alternate test method. Test Performed at: [facility] [id number] [place] [address] SHASHA DONATO MD,PHD 06/15/2020 7:31 AM BLACK AND WHITE PRINTER OPERATOR 06/15/2020 7:33 AM BLACK AND WHITE PRINTER OPERATOR Shirin Valencia MD LAB - CHEMISTRY ORD ERABLES [facility] [address] [place] [address] * TSH (06/15/2020 7:31 AM BLACK AND WHITE PRINTER OPERATOR) [facility] TSH 0.58 mIU/L [facility] Comment: Reference Range > or = 20 Years 0.40-4.50 Ranges First trimester 0.26-2.66 Second trimester 0.55-2.73 Third trimester 0.43-2.91 REPORT COMMENT: FASTING:YES Test Performed at: [facility] [address] [place] [address] NISHA BORREGO DO,MPH 06/15/2020 7:31 AM BLACK AND WHITE PRINTER OPERATOR 06/15/2020 7:33 AM BLACK AND WHITE PRINTER OPERATOR Shirin Valencia MD LAB - CHEMISTRY ORD ERABLES Performing Organization Address City/[facility] Co de Phone Number [facility] [address] [place] [address] * T4 FREE (06/15/2020 7:31 AM BLACK AND WHITE PRINTER OPERATOR) [facility] T4 Free 0.9 0.8 - 1.8 ng/dL [facility] Comment: Test Performed at: [facility] [place] [address] NISHA BORREGO DO,MPH 06/15/2020 7:31 AM BLACK AND WHITE PRINTER OPERATOR 06/15/2020 7:33 AM BLACK AND WHITE PRINTER OPERATOR Shirin Valencia MD LAB - CHEMISTRY ORD ERABLES Performing Organization Address City/[facility] Co de Phone Number [facility] [address] [place] [address] * C. TRACHOMATIS + N. GONORRHOEAE + TRICH KYAW (06/06/2020 10:53 AM BLACK AND WHITE PRINTER OPERATOR) [facility] Chlamydia Trachomatis KYAW Not detected Not detected 06/11/2020 4:03 PM BLACK AND WHITE PRINTER OPERATOR [facility] Neisseria Gonorrhoeae KYAW Not detected Not detected 06/11/2020 4:03 PM BLACK AND WHITE PRINTER OPERATOR [facility] Trichomonas Vaginalis KYAW Not detected Not detected 06/11/2020 4:03 PM BLACK AND WHITE PRINTER OPERATOR [facility] Microbiology URINE / Unknown 06/06/2020 1 0:53 AM BLACK AND WHITE PRINTER OPERATOR 06/07/2020 12:31 PM BLACK AND WHITE PRINTER OPERATOR Narrative [facility] - 06/11/2020 4:03 PM BLACK AND WHITE PRINTER OPERATOR This analysis was performed using Gen-Probe Aptima Combo 2 and Gen-Probe Aptima Assay. These methodologies are U.S. FDA approved for Chlamydia trachomatis, Neisseria gonorrhoeae testing for urine and urogenital swabs from men and women, and cervical cells submitted in ThinPrep vials. Performance characteristics of testing for Trichomonas vaginalis on specimens using the Gen-Probe Aptima Trichomonas vaginalis Assay on the [employer] system and rectal and pharyngeal swabs with Gen-Probe Aptima combo 2 were determined by the Molecular Diagnostics Laboratory at [facility]. They have not been cleared or approved [...] Shirin Valencia MD LAB - MICROBIOLOGY ORDERABLES [facility] [address] [phone] * HI SONO FU OR REPEAT, HI SONO FU OR REPEAT (06/06/2020 9:52 AM BLACK AND WHITE PRINTER OPERATOR) Narrative Giovana Marmolejo RDMS - 06/06/2020 9:52 AM BLACK AND WHITE PRINTER OPERATOR Giovana Marmolejo RDMS 06/06/2020 9:52 AM Documentation in digisonics. Shirin Valencia MD PROCEDURE/MINOR LOS GICAL ORDERABLES * HI ULTRASND,PREG UTER,TRANSVAGIN, HI SONO FU OR REPEAT (05/10/2020 9:00 AM BLACK AND WHITE PRINTER OPERATOR) Narrative Jena Apr - 05/10/2020 9:00 AM BLACK AND WHITE PRINTER OPERATOR Jena, 05/10/2020 9:00 AM Documentation in Digisonics. Shirin Valencia MD PROCEDURE/MINOR LOS GICAL ORDERABLES * HI OB US, LIMITED, FETUS(S), HI ULTRASND,PREG UTER,TRANSVAGIN (04/24/2020 10:34 AM BLACK AND WHITE PRINTER OPERATOR) Narrative Betty Chambers - 04/24/2020 10:34 AM BLACK AND WHITE PRINTER OPERATOR Betty Chambers 04/24/2020 10:34 AM Documentation in digisonics Senia Chaudhary MD PROCEDU RE/MINOR SURGICAL ORDERABLES * ALPHA FETOPROTEIN BLOOD MATERNAL QUAD PANEL (04/15/2020 12:13 PM BLACK AND WHITE PRINTER OPERATOR) Interpretation [facility] Comment: Screen negative for open [...] assistance with recalculations, please call your local [facility] laboratory. For assistance with interpretation of these results, please contact your local [facility] genetic counselor or call [phone]). Interpretive Cut-offs Screen Positive For Open NTD: [...] Smoker NO [facility] Comment: Test Performed at: [facility] [address] [place] [address] NISHA BORREGO DO,MPH Blood BLOOD SPECIMEN / Unknown 04/15/2020 12:13 PM BLACK AND WHITE PRINTER OPERATOR 04/15/2020 12:18 PM BLACK AND WHITE PRINTER OPERATOR Vinny Salas MD LAB - CHEMISTRY STEPHANIE [facility] Organization Address City/State/ZIP Co de Phone Number [facility] [address] [place] [address] * HI ULTRASND,PREG UTER,TRANSVAGIN (04/11/2020 4:20 PM BLACK AND WHITE PRINTER OPERATOR) Narrative Nehal Lopez - 04/11/2020 4:20 PM BLACK AND WHITE PRINTER OPERATOR Nehal Lopez 04/11/2020 4:20 PM Documentation in digisonics. Vinny Salas MD PROCEDURE/MINOR SURG ICAL ORDERABLES * HI ULTRA,PREG UTER,IMAGE,ADD GEST, HI ULTRASND,PREG UTERUS,IMAGE DOC (04/11/2020 4:19 PM BLACK AND WHITE PRINTER OPERATOR) Narrative Nehal Lopez - 04/11/2020 4:19 PM BLACK AND WHITE PRINTER OPERATOR Nehal Lopez 04/11/2020 4:20 PM Documentation in digisonics. Vinny Salas MD PROCEDURE/MINOR SURG ICAL ORDERABLES * HI ULTRASND,PREG UTER,TRANSVAGIN (03/28/2020 9:05 AM BLACK AND WHITE PRINTER OPERATOR) Giovana Asif RDMS - 03/28/2020 9:05 AM BLACK AND WHITE PRINTER OPERATOR Giovana Marmolejo, CHRISTIAN 03/28/2020 9:06 AM Documentation in digisonics. Vinny Salas MD PROCEDURE/MINOR SURG ICAL ORDERABLES * HI ULTRASND,PREG UTER,TRANSVAGIN, HI OB US, LIMITED, FETUS(S) (03/13/2020 3:30 PM BLACK AND WHITE PRINTER OPERATOR) Ismael Giovana Marmolejo RDMS - 03/13/2020 3:30 PM BLACK AND WHITE PRINTER OPERATOR Giovana Marmolejo, CHRISTIAN 03/13/2020 3:30 PM Documentation in digisonics. Bertin Saxena MD PROCEDURE/JUANA R SURGICAL ORDERABLES * PATHOLOGY TISSUE (03/30/2019 8:39 AM BLACK AND WHITE PRINTER OPERATOR) Only the most recent of4 resultswithin the time period is included. Case Report Surgical Pathology Report Case: [id number] Authorizing Provider: Malachi Osborne MD Collected: 03/30/2019 08:39 AM Ordering Location: [facility] Received: 03/30/2019 10:19 AM Pathologist: Senia Sandoval MD Specimens: A) - Gastric, gastric bx r/o h.pylori B) - Small Bowel Biopsy, TI bx C) - Colon, random colon bx D) - Rectum, rectal bx 03/31/2019 4:40 PM [facility] Final Diagnosis Stomach, biopsy (A): - Chronic active gastritis with ulceration - Negative for H. pylori Small intestine, terminal ileum, biopsy (B): - Fragment of enteric mucosa with reactive changes Large intestine, random colon, biopsy (C): - No histopathologic abnormality Large intestine, rectum, biopsy (D): - No histopathologic abnormality 03/31/2019 4:40 PM [facility] Microscopic Description and Comment Microscopic examination substantiates the final diagnosis. Given the ulceration and activity in the gastric biopsy (part A), an immunostain for H. pylori was performed (block A1, with appropriate control staining) and is negative. 03/31/2019 4:40 PM [facility] Clinical History The patient [...] otherwise normal, randomly biopsied. 03/31/2019 4:40 PM [facility] Gross Description The requisition [...] x 0.1 cm. (KK) 03/31/2019 4:40 PM [facility] Disclaimer The performance characteristics of all immunohistochemical and indirect immunofluorescence stains (if any) cited in this report were determined by the Histopathology Laboratory of [facility]. Some of these tests were developed by [...] the attending (teaching) pathologist. 03/31/2019 4:40 PM [facility] Embedded Images 03/31/2019 4:40 PM [facility] Biopsy, NOS GASTRIC CONTENTS SPECIMEN / Unknown 03/30/2019 8:39 AM BLACK AND WHITE PRINTER OPERATOR 03/30/2019 10:19 AM BLACK AND WHITE PRINTER OPERATOR Comment:Pre-op diagnosis: K27.9 Peptic ulcer disease Biopsy, NOS ENTEROTOMY OF SMALL BOWEL FOR BIOPSY / Unknown 03/30/2019 9:11 AM BLACK AND WHITE PRINTER OPERATOR 03/30/2019 10:19 AM BLACK AND WHITE PRINTER OPERATOR Comment:Pre-op diagnosis: K27.9 Peptic ulcer disease Biopsy, NOS COLON PART / Unknown 03/30/2019 9:12 AM BLACK AND WHITE PRINTER OPERATOR 03/30/2019 10:19 AM BLACK AND WHITE PRINTER OPERATOR Comment:Pre-op diagnosis: K27.9 Peptic ulcer disease Biopsy, NOS ENTIRE RECTUM / Unknown 03/30/2019 9:14 AM BLACK AND WHITE PRINTER OPERATOR 03/30/2019 10:19 AM BLACK AND WHITE PRINTER OPERATOR Comment:Pre-op diagnosis: K27.9 Peptic ulcer disease Malachi Osborne MD LAB - PATHOLOGY/CYTO LOGY ORDERABLES Performing Organization Address City/State/[facility] de Phone Number [facility] [address] [phone] * EGD (03/30/2019 8:26 AM BLACK AND WHITE PRINTER OPERATOR) Report Endoscopy POC Endoscopy Department Report __ [...] non-fiore portions. Procedure Code(s): --- Professional --- 85178, Esophagogastroduode noscopy, flexible, transoral; with biopsy, single or multiple Diagnosis Code(s): --- Professional --- K25.9, Gastric ulcer, unspecified as acute or chronic, without hemorrhage or perforation K26.9, Duodenal ulcer, unspecified as acute or chronic, without hemorrhage or perforation R10.13, Epigastric pain K57.10, Diverticulosis of small intestine without perforation or abscess without bleeding CPT copyright 2016 [employer] [place] [employer] [employer]. All rights reserved. The codes documented in this report are preliminary and upon braille coder review may be revised to meet current compliance requirements. Malachi Osborne MD 03/30/2019 8:58:28 AM Note Initiated On: 03/30/2019 8:26 AM Number of Addenda: 0 [facility] [address] [facility] [place] [address] [facility] 03/30/2019 8:26 AM BLACK AND WHITE PRINTER OPERATOR Malachi Osborne MD GI PROCEDURE ORDERAB LES [facility] * ENDOSCOPY, COLON, DIAGNOSTIC (03/30/2019 8:24 AM BLACK AND WHITE PRINTER OPERATOR) Report Endoscopy POC Endoscopy Department Report _ [...] bowel preparation was evaluated using the BBPS (Turney Bowel Preparation Scale) with scores of: Right [...] previously scheduled. Procedure Code(s): --- Professional --- 42688, Colonoscopy, flexible; with biopsy, single or multiple Diagnosis Code(s): --- Professional --- K62.89, Other specified diseases of anus and rectum K62.6, Ulcer of anus and rectum K63.89, Other specified diseases of intestine K64.8, Other hemorrhoids R10.12, Left upper quadrant pain R10.10, Upper abdominal pain, unspecified CPT copyright 2016 [employer] [place] [employer] [employer]. All rights reserved. The codes documented in this report are preliminary and upon braille coder review may be revised to meet current compliance requirements. _ Malachi Osborne MD 03/30/2019 9:31:51 AM Note Initiated On: 03/30/2019 8:24 AM Number of Addenda: 0 [facility] [address] [place] [id number] [facility] 03/30/2019 8:24 AM BLACK AND WHITE PRINTER OPERATOR Malachi Osborne MD GI PROCEDURE ORDERAB LES [facility] * HCG URINE QUALITATIVE - POCT (IP) INTERFACED (03/30/2019 8:04 AM BLACK AND WHITE PRINTER OPERATOR) HCG Qual Urine Negative Negative 03/30/2019 8:03 AM BLACK AND WHITE PRINTER OPERATOR [facility] Urine URINE / Unknown 03/30/2019 8 :04 AM BLACK AND WHITE PRINTER OPERATOR 03/30/2019 8:03 AM BLACK AND WHITE PRINTER OPERATOR Malachi Osborne MD LAB - [place] [address], [facility] [phone] * HCG URINE QUAL POCT NOTIFICATION (03/30/2019 7:54 AM BLACK AND WHITE PRINTER OPERATOR) Comment Notification Label Only - See Separate Report 03/30/2019 9:00 AM BLACK AND WHITE PRINTER OPERATOR [facility] Urine URINE / Unknown 03/30/2019 7 :54 AM BLACK AND WHITE PRINTER OPERATOR 03/30/2019 7:54 AM BLACK AND WHITE PRINTER OPERATOR Malachi Osborne MD LAB - URINALYSIS ORD ERABLES Performing Organization Address City/[facility]/[place] [address], [facility] [phone] * MRI ENTEROGRAPHY (02/06/2019 1:40 PM CDT) Anatomical Region Laterality Modality Magnetic Resonan ce, Magnetic Resonance 02/06/2019 1:29 PM CDT Impressions 02/06/2019 4:11 PM CDT IMPRESSION: No small or large bowel pathology identified. Dictated by Bassem Mcneal MD (doctor of radiology). I, Dr. SURY BARLOW M.D. have personally [...] pathology identified. Dictated by Bassem Mcneal MD (doctor of radiology). I, Dr. SURY BARLOW M.D. have personally reviewed and interpreted this examination/study. This report was electronically signed by SURY BARLOW M.D. on 02/06/2019 4:11 PM . Ramírez Lock MD MR ORDERABL ES * CREATININE BLOOD - POCT (IP) [facility] (02/06/2019 12:14 PM CDT) Creatinine POCT 0.86 0.3 - 1.3 mg/dL [facility] eGFR POCT 60 60 ml/min [facility] Blood BLOOD SPECIMEN / Unknown 02/06/2019 12:14 PM CDT Ramírez Lock MD LAB - POINT OF CARE ORDERABLES Performing Organization Address City/[facility]/ZIP Co de Phone Number [facility] [address] [phone] * IRON + TIBC + FERRITIN (12/15/2018 12:19 PM CDT) Iron 81 40 - 190 mcg/dL [facility] TIBC 407 250 - 450 mcg/dL (calc) [facility] % Saturation 20 16 - 45 % (calc) [facility] Ferritin 18 16 - 154 ng/mL [facility] Comment: Test Performed at: [facility] [address] [place] [address] NISHA BORREGO DO,MPH Blood BLOOD SPECIMEN / Unknown 12/15/2018 12:19 PM CDT 12/15/2018 12:20 PM CDT Ramírez Lock MD LAB - CHEMI STRY ORDERABLES Performing Organization Address [facility]/ZIP Co de Phone Number [facility] [address] [place] [address] * HELICOBACTER PYLORI ANTIGEN FECES (12/01/2018 12:09 PM CDT) Helicobacter pylori Antigen Stool [facility] Comment: HELICOBACTER PYLORI AG, EIA, STOOL MICRO NUMBER: [id number] TEST STATUS: FINAL SPECIMEN SOURCE: STOOL SPECIMEN QUALITY: ADEQUATE RESULT: Not Detected Antimicrobials, proton pump inhibitors, and bismuth preparations inhibit H. pylori and ingestion up to two weeks prior to testing may cause false negative results. If clinically indicated the test should be repeated on a new specimen obtained two weeks after discontinuing treatment. Test Performed at: [facility] [address] [place] [address] SUZETTE DUTTON MD Stool STOOL SPECIMEN / Unknown 12/01/2018 12:09 PM CDT 12/01/2018 12:10 PM CDT Ramírez Lock MD LAB - MICRO BIOLOGY ORDERABLES Performing Organization Address [facility] Hospital/[facility]/ZIP Co de Phone Number [facility] [address] [place] [address] * GASTRIN (11/10/2018 9:52 AM CDT) Only the most recent of2 resultswithin the time period is included. Gastrin 14 0 - 115 pg/mL 11/12/2018 10:06 PM CDT [facility] ([facility]) Comment: Siemens Immulite 2000 Immunochemiluminometric assay (ICMA) Values obtained with different assay methods or kits cannot be used interchangeably. Results cannot be interpreted as absolute evidence of the presence or absence of malignant disease. Blood BLOOD SPECIMEN / Unknown Venipuncture / Unknown 11/10/2018 9:52 AM CDT 11/10/2018 10:01 AM CDT Narrative [facility] ([facility]) - 11/12/2018 10:06 PM CDT Performed at: [address] [place] [id number] [employer] Model Maker Apprentice: Rigo Dugan MD, Phone: [phone] Temi Guthrie MD LAB - CHEMISTRY STEPHANIE SHARMA Performing Organization Address City/[facility]/ZIP Co de Phone Number [facility] ([facility]) [address] [id number] * EGD (11/10/2018 8:57 AM CDT) [...] non-fiore portions. Procedure Code(s): --- Professional --- 41198, Esophagogastroduode noscopy, flexible, transoral; with biopsy, single or multiple Diagnosis Code(s): --- Professional --- K29.70, Gastritis, unspecified, without bleeding K25.9, Gastric ulcer, unspecified as acute or chronic, without hemorrhage or perforation K27.9, Peptic ulcer, site unspecified, unspecified as acute or chronic, without hemorrhage or perforation CPT copyright 2016 [employer] [place] [employer]. All rights reserved. The codes documented in this report are preliminary and upon braille coder review may be revised to meet current compliance requirements. Temi Guthrie MD 11/10/2018 10:21:20 AM This report has been signed electronically. Note Initiated On: 11/10/2018 8:57 AM Number of Addenda: 0 [facility] [address] [place] [address] [facility] [employer] 11/10/2018 8:57 AM CDT Temi Guthrie MD GI PROCEDURE ORDERAB LES [facility] * QUANTIFERON-TB GOLD PLUS 1-TUBE (10/11/2018 12:16 PM CDT) Pathologist [facility] QuantiFERON TB Gold Plus NEGATIVE NEGATIVE QUEST [...] T-lymphocytes. For additional information, please refer to https://education.FanChatter/faq/EQI230 (This link is being provided for informational/ educational purposes only.) REPORT COMMENT: FASTING:NO Test Performed at: [facility] [address] [place] [address] NISHA BORREGO DO,MPH 10/11/2018 12:1 6 PM CDT 10/11/2018 12:16 PM CDT Steve Loo MD LAB - CHEMISTRY STEPHANIE SHARMA [facility] [address] [place] [address] * EGD (08/04/2018 1:07 PM CDT) Report [...] were discussed with the referring physician, Dr. Lock. - The findings and recommendations were discussed with the patient. - Await pathology results. - Use Protonix (pantoprazole) 40 mg PO BID daily. - Repeat EGD in 3 months. - Ordered fasting serum gastrin level. Attending Participation: I personally performed the entire procedure. Procedure Code(s): --- Professional --- 37670, Esophagogastroduod enoscopy, flexible, transoral; with biopsy, single or multiple Diagnosis Code(s): --- Professional --- K25.9, Gastric ulcer, unspecified as acute or chronic, without hemorrhage or perforation R10.84, Generalized abdominal pain K27.3, Acute peptic ulcer, site unspecified, without hemorrhage or perforation CPT copyright 2016 [employer] [place] [employer]. All rights reserved. The codes documented in this report are preliminary and upon braille coder review may be revised to meet current compliance requirements. Shayan Freedman MD 08/04/2018 1:55:18 PM This report has been signed electronically. Note Initiated On: 08/04/2018 1:07 PM Number of Addenda: 0 [facility] [address] [place] [address] [facility] [employer]ATION 08/04/2018 1:07 PM CDT Shayan Freedman MD GI PROCEDURE ORDERAB LES [facility] [employer] * HCG URINE QUALITATIVE - POINT OF CARE (08/04/2018 12:53 PM CDT) Only the most recent of3 resultswithin the time period is included. HCG Qual Urine Negative Negative [facility] P OCT TESTING QC Verified Yes Yes [facility] POCT TESTING Urine URINE / Unknown 08/04/2018 1 2:53 PM CDT Nellie Jason MD LAB - POINT OF MS RE ORDERABLES [facility] POCT TESTING [address] [phone] * EGD (04/28/2018 2:25 PM BLACK AND WHITE PRINTER OPERATOR) Report Endoscopy POC Endoscopy Department Report __ [...] 2 months. 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 All rights reserved. The codes documented in this report are preliminary and upon braille coder review may be revised to meet current compliance requirements. Malachi Osborne MD 04/28/2018 3:09:35 PM Note Initiated On: 04/28/2018 2:25 PM Number of Addenda: 0 [facility] [address] [place] [address] [facility] [employer] 04/28/2018 2:25 PM BLACK AND WHITE PRINTER OPERATOR Tressa Yung MD GI PROCEDURE ORDERAB LES [facility] [employer] * NM GASTRIC EMPTYING (03/03/2018 1:16 PM BLACK AND WHITE PRINTER OPERATOR) Anatomical Region Laterality Modality Abdomen Nuclear Medicine 03/03/2018 11:0 2 AM BLACK AND WHITE PRINTER OPERATOR Impressions 03/03/2018 3:56 PM BLACK AND WHITE PRINTER OPERATOR Impression: Borderline normal gastric emptying based on 10% retention at 4 hours after ingestion of meal. This report was approved by Mervin Suero on 03/03/2018 1:52 PM . IDr. ROBIN D.O. have personally reviewed and interpreted this examination/study. This report was electronically signed by ROBIN CRANDALL D.O. on 03/03/2018 3:56 PM . 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 Findings: No prior study is [...] meal is labeled with 0.5 mCi of [id number] sulfur colloid. Findings: No prior study is [...] CDT 07/26/2017 Narrative Resulting Agency Comment [facility] [address] [phone] Raina DOMINGUEZ LAB - MICROBIO LOGY ORDERABLES [facility] ACCOUNT BILL [place] [address] * (ABNORMAL) URINALYSIS AUTO - POINT OF CARE (AMB) STL (07/26/2017) Clarity UA POCT cloudy Color UA POCT yellow Leukocyte UA trace Negative Nitrite UA POCT negative Negative Urobilinogen UA 0.2 0.1 - 1.0 Protein UA POCT trace Negative pH UA 6.5 5.0 - 8.0 pH units Blood UA 50 Negative Specific Elmore UA POCT 1.025 1.002 - 1.030 Ketone UA negative Negative Bilirubin UA POCT negative Negative Glucose UA negative Negative Expiration Date 12/02/2018 Lot # [id number] QC Verified Yes Yes Urine URINE / Unknown 07/26/2017 Raina Redmond APRN-TAX INTERN LAB - POINT OF CARE ORDERABLES Care Teams Chemical Analytical 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
[2024-07-04 23:44] VITALS: BP 123/80; PULSE 80; RESP 20; O2SAT 100
== END 2024-07-04 23:45 | disposition home or self-care (01) ==
PROVIDERS: Student in an Organized Health Care Education/Training Program; Emergency Provider Physician Assistant; PCP Obstetrics & Gynecology
DX: R00.2 Palpitations (principal)
CPT/HCPCS: 36415; 71046; 80053; 83690; 84484; 85025; 85610; 85730; 93005; 99284